=== PATIENT | male | born 1935 | race Caucasian/White ===

== ENCOUNTER 2017-04-04 11:56 | Inpatient (IN) | payer OTHER, MEDICARE ==
[2017-04-04] VITALS (13 sets, daily range): BP systolic 108–153; BP diastolic 60–106; PULSE 72–117; RESP 2–20; TEMP 97.5–98.3; O2SAT 94–98
[~2017-04-04 11:56] MED LIST: ASPI81TA45 PO; BENA20 PO; CALC600T44 PO; CLOP75 PO; DOXA1 PO; ECOT81TA2 PO; FISH1400 PO; HYDR12.56 PO; LUTE20CA PO; METO50CR PO; PANT20 PO; PRAV40 PO; TAB-TAB PO; VITA500C18 PO
[2017-04-04] MEDS ORDERED: METO50TA11 PO (12:16)
[2017-04-04] MEDS ORDERED: PANT20TA2 PO (12:16)
[2017-04-04] MEDS ORDERED: APIX5TAB PO (12:16)
[2017-04-04] MEDS ORDERED: DOXA1TAB34 PO (12:16)
[2017-04-04] MEDS ORDERED: LOVA40TA PO (12:16)
[2017-04-04] MEDS ORDERED: BENA20TA PO (12:16)
[2017-04-04] MEDS ORDERED: AMLO5TAB2 PO (12:16)
[2017-04-04] MEDS ORDERED: HYDR25TA5 PO (12:16)
[2017-04-04] MEDS ORDERED: DILTIAZEM HCL 25 MG/5 ML VIAL IV ONE (12:30)
[2017-04-04 12:34] LABS: AUTOMATED NEUTROPHIL # 5.2 TH/MM3 (1.8-7.7); BASOPHIL % 0.5 % (0.0-2.0); EOSINOPHIL # 0.1 TH/MM3 (0-0.4); EOSINOPHIL % 1.2 % (0.0-4.0); HEMATOCRIT 45.1 % (39.0-51.0); HEMO FLAGS DIFF FINAL; LYMPH % 21.9 % (9.0-44.0); LYMPHOCYTE # 1.6 TH/MM3 (1.0-4.8); MEAN CELL VOLUME 92.8 FL (80.0-100.0); MEAN CORPUSCULAR HEMOGLOBIN 32.2 PG (27.0-34.0); MEAN CORPUSCULAR HGB CONC 34.6 % (32.0-36.0); MONO % 6.8 % (0.0-8.0); NEUT % 69.6 % (16.0-70.0); PLATELET COUNT 194 TH/MM3 (150-450); RED BLOOD COUNT 4.86 MIL/MM3 (4.50-5.90); RED CELL DISTRIBUTION WIDTH 13.2 % (11.6-17.2); WHITE BLOOD COUNT 7.5 TH/MM3 (4.0-11.0)
[2017-04-04 12:44] LABS: APTT (PATIENT) 29.9 SEC (24.3-30.1); INTERNATIONAL NORMALIZED RATIO 1.1 RATIO; PROTHROMBIN TIME - PATIENT 11.7 SEC (9.8-11.6)
--- NOTE | 2017-04-04 12:49 | RADRPT ---
EXAM DATE/TIME: 04/04/2017 12:23 [facility] COMPARISON: CHEST SINGLE AP, September 23, 2015, 20:07. INDICATIONS : Chest pain. MEDICAL HISTORY : Arthritis. Hypercholesterolemia. Gastroesophageal reflux disease. Renal disease.Nephrolithiasis. HTN. Melanoma, ear. Cervicalgia. Vertigo. A-fib. SURGICAL HISTORY : Cholecystectomy. Appendectomy. Lithotripsy. Orthopedic, right knee replacement times three. Orthopedi c, left knee replacement. Left hand finger surgery, times two. Bilateral cataract removal. ENCOUNTER: Initial ACUITY: 1 day PAIN SCORE: 2/10 LOCATION: Bilateral chest FINDINGS: The lungs are clear without infiltrate, nodule, or mass. There is no appreciable pleural effusion fo r technique. Heart and mediastinum are unremarkable. Evidence for prior granulomatous exposure.Ther e are atherosclerotic calcifications of the aorta due to chronic atherosclerotic disease. CONCLUSION: No acute cardiopulmonary disease. Keven Velasquez MD on April 04, 2017 at 12:47 Board Certified Radiologist. This report was verified electronically.
[2017-04-04 12:52] LABS: ANION GAP 10 MEQ/L (5-15); BICARBONATE 26.5 MEQ/L (21.0-32.0); BLOOD UREA NITROGEN 21 MG/DL (7-18); CHLORIDE 103 MEQ/L (98-107); GLOMERULAR FILTRATION RATE 57 ML/MIN (>89); MAGNESIUM 1.9 MG/DL (1.5-2.5); POTASSIUM 3.9 MEQ/L (3.5-5.1); SODIUM (NA) 139 MEQ/L (136-145)
--- NOTE | 2017-04-04 12:54 | RADRPT ---
EXAM DATE/TIME: 04/04/2017 12:40 [facility] COMPARISON: INDICATIONS : Lightheaded.General weakness. RADIATION DOSE: 38.48 CTDIvol (mGy) MEDICAL HISTORY : Cerebrovascular disease. Cardiovascular disease Hypertension.Afib SURGICAL HISTORY : Appendectomy. Cholecystectomy.Prothesis ENCOUNTER: Initial ACUITY: 3 months PAIN SCALE: 0/10 LOCATION: cranial TECHNIQUE: MRI BRAIN W/O CONTRAST, September 24, 2015, 9:02. CT BRAIN W/O CONTRAST, September 23, 2015, 20:26. Mul tiple contiguous axial images were obtained of the head. Using automated exposure control and adjust ment of the mA and/or kV according to patient size, radiation dose was kept as low as reasonably achi evable to obtain optimal diagnostic quality images. DICOM format image data is available electronic ally for review and comparison. FINDINGS: There is no evidence for intracranial hemorrhage, mass effect, mass lesions, or edema. The visualize d bony structures appear intact. Slight degree of brain atrophy is seen. Slight periventricular whit e matter changes are seen nonspecific mostly consistent with chronic small vessel ischemic changes. There are no signs of acute infarction for technique. CONCLUSION: Slight atrophic and small vessel ischemic changes without any evidence for acute hemorrhage or mass effect. Keven Velasquez MD on April 04, 2017 at 12:50 Board Certified Radiologist. This report was verified electronically.
[2017-04-04] MEDS: DILTIAZEM INJ 125 MG in SODIUM CHLORIDE 0.9% INJ 100 ML IV SCH (13:00)
[2017-04-04 13:08] LABS: CREATINE KINASE 57 U/L (39-308)
--- NOTE | 2017-04-04 13:20 | PD ---
HPI Chief Complaint: Cardiac Complaint Time Seen by Provider: 13:13 Travel History International Travel<30 days: No Contact w/Intl Traveler<30days: No Traveled to known affect area: No History of Present Illness HPI 80-year-old male that presents to the ED for evaluation of lightheadedness as well as chest discomfort. Per patient she's had the lightheadedness for a while and he states that for the most per his been able to live with as he usually gets in the morning when she first gets up and then it goes away but since yesterday he is noted that is not going away. Today got more severe. Per patient she got more concerned because he has recently witnessed the loss of the neighbor just last week as well as another one a month ago and she is concerned he may be next. Patient does state that he has chronic pain in his left side of the chest since been diagnosed with A. fib about a year ago. believes the patient is taking too many blood pressure medications. Per patient she's been compliant with all his medications. He does take Eliquis. No falls or injuries. Per patient the lightheadedness is constant and does not change with position. He did see Dr. Ramos versus cardio is about 6 months ago and he is due to see him next month. He has not had any cardiac events as far as he knows. He has not missed a dose of his medications. Denies any other medical issues. No fevers chills or sweats. No thyroid disease. PFSH Past Medical History Hx Anticoagulant Therapy: Yes (eliquis) Arthritis: Yes Asthma: No Atrial Fibrillation: Yes Autoimmune Disease: No Blood Disorders: No Anxiety: No Depression: No Heart Rhythm Problems: No Cancer: Yes (MELANOMA ON EAR--SKIN) Cardiovascular Problems: Yes (afib) High Cholesterol: Yes Chemotherapy: No Chest Pain: Yes Congestive Heart Failure: No COPD: No Cerebrovascular Accident: Yes (tia) Diabetes: No Diminished Hearing: No Endocrine: No Gastrointestinal Disorders: Yes (ACID REFLUX, "SENSITIVE STOMACH") GERD: No Glaucoma: No Genitourinary: No Headaches: No Hepatitis: No Hiatal Hernia: No Hypertension: Yes Immune Disorder: No Kidney Stones: No Musculoskeletal: Yes (ARTHRITIS,NECK PAIN) Neurologic: Yes (JOSE UE NUMBNESS/TINGLING) Psychiatric: No Reproductive: Yes (BPH) Respiratory: No Migraines: No Myocardial Infarction: No Radiation Therapy: No Renal Failure: No Seizures: No Sickle Cell Disease: No Sleep Apnea: No Thyroid Disease: No Ulcer: No Past Surgical History AICD: No Appendectomy: Yes Arteriovenous Shunt: No Cardiac Surgery: No Cholecystectomy: Yes Ear Surgery: No Endocrine Surgery: No Eye Surgery: No Genitourinary Surgery: Yes (KIDNEY STONE LITHOTRIPSY) Gynecologic Surgery: No Joint Replacement: Yes (JOSE KNEES) Neurologic Surgery: No Oral Surgery: No Pacemaker: No Thoracic Surgery: No Other Surgery: Yes (APPENDECTOMY,RIGHT KNEE REPLACEMENT,KIDNEY STONE SURGERY, LEFT FINGER SURGER) Social History Alcohol Use: No Tobacco Use: No Substance Use: No Allergies-Medications (Allergen,Severity, Reaction): Coded Allergies: No Known Allergies (Verified , 09/23/15) Reported Meds & Prescriptions Reported Meds & Active Scripts Active Reported Doxazosin (Doxazosin Mesylate) 4 Mg Tab 4 Mg PO HS Eliquis (Apixaban) 5 Mg Tab 5 Mg PO BID Amlodipine (Amlodipine Besylate) 5 Mg Tab 5 Mg PO DAILY Hydrochlorothiazide 25 Mg Tab 25 Mg PO DAILY Metoprolol Succinate ER 24 HR (Metoprolol Succinate) 50 Mg Tab 75 Mg PO DAILY Pantoprazole (Pantoprazole Sodium) 20 Mg Tab 20 Mg PO DAILY Benazepril (Benazepril HCl) 20 Mg Tab 20 Mg PO BID Lovastatin 40 Mg Tab 40 Mg PO DAILY Review of Systems Except as stated in HPI: all other systems reviewed are Neg Physical Exam Narrative GENERAL: SKIN: Warm and dry. HEAD: Atraumatic. Normocephalic. EYES: Pupils equal and round. No scleral icterus. No injection or drainage. ENT: No nasal bleeding or discharge. Mucous membranes pink and moist. Tongue is midline. No uvula deviation. NECK: Trachea midline. No JVD. CARDIOVASCULAR: Irregular rate and rhythm. No murmurs, S3, S4 RESPIRATORY: No accessory muscle use. Clear to auscultation. Breath sounds equal bilaterally. GASTROINTESTINAL: Abdomen soft, non-tender, nondistended. Hepatic and splenic margins not palpable. MUSCULOSKELETAL: Extremities without clubbing, cyanosis, or edema. No obvious deformities. Full range of motion of the upper and lower extremities bilaterally. 2+ pulses bilaterally. NEUROLOGICAL: Awake and alert. No obvious cranial nerve deficits. Motor grossly within normal limits. Five out of 5 muscle strength in the arms and legs. Normal speech. PSYCHIATRIC: Appropriate mood and affect; insight and judgment normal. Data Data Last Documented VS Vital Signs Date Time Temp Pulse Resp B/P Pulse Ox O2 Delivery O2 Flow Rate FiO2 04/04/17 12:53 98 16 153/106 113 16 141/60 119 115/64 04/04/17 12:35 94 04/04/17 12:22 Room Air 04/04/17 12:00 97.7 Orders Electrocardiogram (04/04/17 ) Complete Blood Count With Diff (04/04/17 12:16) Basic Metabolic Panel (Bmp) (04/04/17 12:16) Ckmb (Isoenzyme) Profile (04/04/17 12:16) Troponin I (04/04/17 12:16) B-Type Natriuretic Peptide (04/04/17 12:16) Prothrombin Time / Inr (Pt) (04/04/17 12:16) Act Partial Throm Time (Ptt) (04/04/17 12:16) Lipase (04/04/17 12:16) Urinalysis - C+S If Indicated (04/04/17 12:16) Magnesium (Mg) (04/04/17 12:16) Thyroid Stimulating Hormone (04/04/17 12:16) Chest, Single Ap (04/04/17 12:16) Ct Brain W/O Iv Contrast(Rout) (04/04/17 12:16) Iv Access Insert/Monitor (04/04/17 12:16) Ecg Monitoring (04/04/17 12:16) Oximetry (04/04/17 12:16) Orthostatic Vital Signs (04/04/17 12:16) Diltiazem Inj (Cardizem Inj) (04/04/17 12:30) Vital Signs (Adult) Q15MX4,Q4H (04/04/17 12:29) Distribution Center Associate / Telemetry BARI.Q8H (04/04/17 12:29) Cardiac Rhythm BARI.Q8H (04/04/17 12:29) Notify Dr: Other (04/04/17 12:29) Diltiazem Inj (Cardizem Inj) (04/04/17 12:30) Admit Order (Ed Use Only) (04/04/17 13:40) Amlodipine (Norvasc) (04/05/17 09:00) Apixaban (Eliquis) (04/04/17 21:00) Lisinopril (Prinivil) (04/04/17 21:00) Doxazosin (Cardura) (04/04/17 21:00) Hydrochlorothiazide (Hydrodiuril) (04/05/17 09:00) Pravastatin (Pravachol) (04/05/17 09:00) Metoprolol Succinate Er (Toprol Xl) (04/05/17 09:00) Labs Laboratory Tests Test 04/04/17 12:20 White Blood Count 7.5 TH/MM3 Red Blood Count 4.86 MIL/MM3 Hemoglobin 15.6 GM/DL Hematocrit 45.1 % Mean Corpuscular Volume 92.8 FL Mean Corpuscular Hemoglobin 32.2 PG Mean Corpuscular Hemoglobin 34.6 % Concent Red Cell Distribution Width 13.2 % Platelet Count 194 TH/MM3 Mean Platelet Volume 8.0 FL Neutrophils (%) (Auto) 69.6 % Lymphocytes (%) (Auto) 21.9 % Monocytes (%) (Auto) 6.8 % Eosinophils (%) (Auto) 1.2 % Basophils (%) (Auto) 0.5 % Neutrophils # (Auto) 5.2 TH/MM3 Lymphocytes # (Auto) 1.6 TH/MM3 Monocytes # (Auto) 0.5 TH/MM3 Eosinophils # (Auto) 0.1 TH/MM3 Basophils # (Auto) 0.0 TH/MM3 CBC Comment DIFF FINAL Differential Comment Prothrombin Time 11.7 SEC Prothromb Time International 1.1 RATIO Ratio Activated Partial 29.9 SEC Thromboplast Time Sodium Level 139 MEQ/L Potassium Level 3.9 MEQ/L Chloride Level 103 MEQ/L Carbon Dioxide Level 26.5 MEQ/L Anion Gap 10 MEQ/L Blood Urea Nitrogen 21 MG/DL Creatinine 1.21 MG/DL Estimat Glomerular Filtration 57 ML/MIN Rate Random Glucose 113 MG/DL Calcium Level 8.6 MG/DL Magnesium Level 1.9 MG/DL Total Creatine Kinase 57 U/L Troponin I LESS THAN 0.02 NG/ML B-Type Natriuretic Peptide 450 PG/ML Lipase 86 U/L Thyroid Stimulating Hormone 2.330 uIU/ML 3rd Gen [facility] Medical Decision Making Medical Screen Exam Complete: Yes Emergency Medical Condition: Yes Medical Record Reviewed: Yes Interpretation(s) CBC & BMP Diagram 04/04/17 12:[address] 04/04/17 1216 Signed Impressions: Service Date/Time: Tuesday, April 04, 2017 12:40 - CONCLUSION: Slight atrophic and small vessel ischemic changes without any evidence for acute hemorrhage or mass effect. Keven Velasquez MD Chest X-Ray 04/04/17 1216 Signed Impressions: Service Date/Time: Tuesday, April 04, 2017 12:23 - CONCLUSION: No acute cardiopulmonary disease. Keven Velasquez MD EKG show atrial fibrillation with RVR with a heart rate of 156. No obvious sign of ischemia otherwise read by me and attending. Troponin and CK-MB negative. TSH within normal limits. Lipase within normal limits. Differential Diagnosis A. fib and RVR versus orthostatic hypotension versus chest pain versus ACS versus atrial fibrillation versus chronic pain versus a typical pain Narrative Course 81-year-old male that presents to the ED for evaluation of lightheadedness and chest pain. Patient was properly examined and was found to have signs and symptoms that appear to be very consistent with A. fib and RVR. Patient states compliance with his medications. He denies any new changes in medications. He does tell me that the lightheadedness is more severe today. Initially his heart rate was in the 150s. Patient was given 1 bolus of Cardizem to be bringing down to 120s 130s but it Back up so he was put on a drip. Patient's labs and imaging were essentially unremarkable other than for A. fib and RVR. Patient did have orthostatic vitals that show 30 point drop which could be related to blood pressure medications. At this time because of patient's A. fib on RVR and need for drip recommendation is for admission for further eval and cardiology input. Patient is in agreement with this plan. Patient is [employer] so [facility] was contacted. Dr Robb agrees to admission. Consult to Trey arellano by me. Diagnosis Primary Impression: Atrial fibrillation with RVR Additional Impression: Orthostatic hypotension Admitting Information Admitting Physician Requests: Admit Evangelist Junior Apr 04, 2017 13:19
[2017-04-04] MEDS ORDERED: LACTULOSE SYRUP 20 GM/30 ML CUP PO PRN (13:45)
[2017-04-04] MEDS ORDERED: NALOXONE HCL 0.4 MG/ML AMP IV PRN (13:45)
[2017-04-04] MEDS ORDERED: MAGNESIUM HYDROXIDE SUSP 30 ML CUP PO PRN (13:45)
[2017-04-04] MEDS ORDERED: ACETAMINOPHEN 325 MG TAB PO PRN (13:45)
[2017-04-04] MEDS ORDERED: ONDANSETRON HCL 4 MG/2 ML VIAL IVP PRN (13:45)
[2017-04-04] MEDS ORDERED: BISACODYL 10 MG SUPP RECTAL PRN (13:45)
[2017-04-04] MEDS ORDERED: SODIUM CHLORIDE 0.9% FLUSH 10 ML FLUSH IV FLUSH PRN (13:45)
[2017-04-04] MEDS ORDERED: SENNOSIDES 8.6 MG TAB PO PRN (13:45)
[2017-04-04] MEDS ORDERED: PILL SPLITTER OTHER PRN (14:00)
--- NOTE | 2017-04-04 14:24 | HHI.HP ---
cc: Jayla Tirado MD; Abiel Xie MD [facility] Non-Staff Admission Diagnosis a fib in RVR, orthostathic hypotension Diagnoses: Chief Complaint: lightheadedness, chest pain Travel History International Travel<30 Days: No Contact w/Intl Traveler <30 Da: No Traveled to Known Affected Are: No History of Present Illness 81-year-old male with history of atrial fibrillation on Eliquis, HTN, TIA, GERD , BPH, presents with a ten-day history of worsening lightheadedness. The patient reports almost every day over the past ten days he has noticed lightheadedness upon awakening, described as feeling foggy in the head with slight blurred vision. He states most of the days the sensation will go away by 11 AM and he just thought this was related to old age. However over the past two days the lightheadedness has persisted, and today he had an episode of chest pain and weakness in the legs. He locates pain to the left anterior chest without radiation, described as sharp, stabbing pains, not associated with any shortness of breath, nausea, or diaphoresis. The pain went away on its own after a few seconds. The symptoms worried him therefore he decided to present to the ER. The patient reports he has been under a lot of stress lately , with 2 close friends passing away, and dealing with family issues. He believes the stress along with low blood pressures are causing his symptoms. He is concerned that he may need to cut back on his BP meds. He has been taking his BP at the grocery store over the past few weeks and it is mostly in the 120s /60s however did have a reading last week in the low 100s. Upon his arrival to the ER, he was found to be in Afib with RVR HR in the 150s. He denies any palpitations or shortness of breath. He reports compliance with his medications. He has been started on Cardizem drip with improvement of HR in the low 100s. He is requesting to see his quarter seamer Dr. Tirado. He also has PCP Dr. Xie and [facility] Yanes. Review of Systems Except as stated in HPI: all other systems reviewed are Neg Past Family Social History Past Medical History atrial fibrillation on Eliquis HTN HLD TIA GERD BPH Nephrolithiasis Past Surgical History Lithotripsy Cervical spine discectomy and fusion Cataract surgery Bilateral total knee arthroplasty Appendectomy Cholecystectomy Left finger surgery Reported Medications Doxazosin (Doxazosin Mesylate) 4 Mg Tab 4 Mg PO HS Eliquis (Apixaban) 5 Mg Tab 5 Mg PO BID Amlodipine (Amlodipine Besylate) 5 Mg Tab 5 Mg PO DAILY Hydrochlorothiazide 25 Mg Tab 25 Mg PO DAILY Metoprolol Succinate ER 24 HR (Metoprolol Succinate) 50 Mg Tab 75 Mg PO DAILY Pantoprazole (Pantoprazole Sodium) 20 Mg Tab 20 Mg PO DAILY Benazepril (Benazepril HCl) 20 Mg Tab 20 Mg PO BID Lovastatin 40 Mg Tab 40 Mg PO DAILY Allergies: Coded Allergies: No Known Allergies (Verified , 09/23/15) Active Ordered Medications Current Medications Medications (Trade) Dose Ordered Sig/Magan Route Start Time Stop Time Status Last Admin (Cardizem Inj/NS Inj) 125 ml @ 0 mls/hr TITRATE IV 04/04/17 12:30 04/04/17 13:00 (Norvasc) 5 mg DAILY PO 04/05/17 09:00 (Eliquis) 5 mg BID PO 04/04/17 21:00 (Prinivil) 20 mg BID PO 04/04/17 21:00 (Cardura) 4 mg HS PO 04/04/17 21:00 (Hydrodiuril) 25 mg DAILY PO 04/05/17 09:00 (Pravachol) 40 mg DAILY PO 04/05/17 09:00 Metoprolol Succinate 75 mg 75 mg DAILY PO 04/05/17 09:00 (NS 1000 ml Inj) 1,000 ml @ 83 mls/hr Q12H3M IV 04/04/17 13:43 UNV (NS Flush) 2 ml UNSCH PRN IV FLUSH 04/04/17 13:45 UNV (NS Flush) 2 ml BID IV FLUSH 04/04/17 21:00 UNV (Tylenol) 650 mg Q4H PRN PO 04/04/17 13:45 UNV (Zofran Inj) 4 mg Q6H PRN IVP 04/04/17 13:45 UNV (Narcan Inj) 0.4 mg UNSCH PRN IV 04/04/17 13:45 UNV (Lyric-Colace) 1 tab BID PO 04/04/17 21:00 UNV (Milk Of Magnesia Liq) 30 ml Q12H PRN PO 04/04/17 13:45 UNV (Senokot) 17.2 mg Q12H PRN PO 04/04/17 13:45 UNV (Dulcolax Supp) 10 mg DAILY PRN RECTAL 04/04/17 13:45 UNV (Lactulose Liq) 30 ml DAILY PRN PO 04/04/17 13:45 UNV (Pill Splitter) 1 ea UNSCH PRN OTHER 04/04/17 14:00 Family History Mother with lung cancer, Father with Alzheimer's, age 89 Son with renal cell carcinoma and metastasis, Social History Denies any alcohol, tobacco, or illicit drug use Physical Exam Vital Signs Vital Signs Date Time Temp Pulse Resp B/P Pulse Ox O2 Delivery O2 Flow Rate FiO2 04/04/17 12:53 98 16 153/106 113 16 141/60 119 115/64 04/04/17 12:35 117 16 122/63 94 04/04/17 12:22 Room Air 04/04/17 12:00 97.7 78 16 134/77 97 Physical Exam GENERAL: Well-nourished, well-developed pleasant elderly male patient in [facility]. SKIN: Warm and dry. No rash. HEAD: Normocephalic. Atraumatic. EYES: Pupils equal and round. No scleral icterus. No injection or drainage. ENT: No nasal bleeding or discharge. Mucous membranes pink and moist. NECK: Supple. Trachea midline. CARDIOVASCULAR: Irregularly irregular rate and rhythm. S1, S2 noted. No murmur appreciated. RESPIRATORY: No accessory muscle use. Clear to auscultation. Breath sounds equal bilaterally. GASTROINTESTINAL: Abdomen soft, non-tender, nondistended. Normoactive bowel sounds x4. MUSCULOSKELETAL: No obvious deformities. Extremities without clubbing, cyanosis , or edema. NEUROLOGICAL: Awake and alert. No obvious cranial nerve deficits. Motor grossly within normal limits. Normal speech. PSYCHIATRIC: Appropriate mood and affect; insight and judgment normal. Laboratory Laboratory Tests Test 04/04/17 12:20 White Blood Count 7.5 Red Blood Count 4.86 Hemoglobin 15.6 Hematocrit 45.1 Mean Corpuscular Volume 92.8 Mean Corpuscular Hemoglobin 32.2 Mean Corpuscular Hemoglobin 34.6 Concent Red Cell Distribution Width 13.2 Platelet Count 194 Mean Platelet Volume 8.0 Neutrophils (%) (Auto) 69.6 Lymphocytes (%) (Auto) 21.9 Monocytes (%) (Auto) 6.8 Eosinophils (%) (Auto) 1.2 Basophils (%) (Auto) 0.5 Neutrophils # (Auto) 5.2 Lymphocytes # (Auto) 1.6 Monocytes # (Auto) 0.5 Eosinophils # (Auto) 0.1 Basophils # (Auto) 0.0 CBC Comment DIFF FINAL Differential Comment Prothrombin Time 11.7 Prothromb Time International 1.1 Ratio Activated Partial 29.9 Thromboplast Time Sodium Level 139 Potassium Level 3.9 Chloride Level 103 Carbon Dioxide Level 26.5 Anion Gap 10 Blood Urea Nitrogen 21 Creatinine 1.21 Estimat Glomerular Filtration 57 Rate Random Glucose 113 Calcium Level 8.6 Magnesium Level 1.9 Total Creatine Kinase 57 Troponin I LESS THAN 0.02 B-Type Natriuretic Peptide 450 Lipase 86 Thyroid Stimulating Hormone 2.330 3rd Gen Result Diagram: 04/04/17 1220 04/04/17 1220 Imaging Last Impressions Head CT 04/04/17 1216 Signed Impressions: Service Date/Time: Tuesday, April 04, 2017 12:40 - CONCLUSION: Slight atrophic and small vessel ischemic changes without any evidence for acute hemorrhage or mass effect. Keven Velasquez MD Chest X-Ray 04/04/17 1216 Signed Impressions: Service Date/Time: Tuesday, April 04, 2017 12:23 - CONCLUSION: No acute cardiopulmonary disease. Keven Velasquez MD Assessment and Plan Problem List: (1) Atrial fibrillation with RVR ICD Code: I48.91 Status: Acute (2) Orthostatic hypotension ICD Code: I95.1 Status: Acute (3) Atypical chest pain ICD Code: R07.89 Status: Acute Assessment and Plan 81-year-old male with history of atrial fibrillation on Eliquis, HTN, TIA, GERD , BPH, presents with a ten-day history of worsening lightheadedness. Atrial fibrillation with RVR: EKG upon arrival showed A. fib with RVR, HR 156. S /p IV Cardizem bolus, initially heart rate improved however went back up to 120s -130s, therefore started on IV Cardizem drip. -Continue IV Cardizem drip -Continue patient's Eliquis, statin, and metoprolol -monitor on telemetry -consult patient's quarter seamer Dr. Tirado Lightheadedness: suspect multifactorial secondary to orthostatic hypotension in combination with afib RVR as above -records reviewed, hx of Echo showed mild LVH with normal systolic function EF 55-60% -orthostatic BP positive, continue to monitor -continued patient's benazepril 20mg bid, HCTZ 25mg qd, and metoprolol succinate 75mg daily; however hold norvasc for now -monitor BP, adjust antihypertensives as needed. 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 Initial troponin negative and EKG without acute ischemic changes -continue to rule out ACS with serial cardiac enzymes and EKGs -monitor on telemetry -check lipid panel in am -cardiology consulted as above All other medical conditions stable, continue home medications as appropriate. DVT Prophylaxis: on quis The exam, history, and the medical decision-making described in the above note were completed with the assistance of the mid-level provider. I reviewed and agree with the findings presented. I attest that I had a [id number] encounter with the patient on the same day, and personally performed and documented my assessment and findings in the medical record. Discussed with patient and his in Emergency room, patient examined in ER. Code Status Full Code Discussed Condition With Patient, Patient's at bedside, Dr. Cezar Blanca PA-C Physician Certification 2 Midnight Certification Type: Admission for Inpatient Services Order for Inpatient Services The services are ordered in accordance with Medicare regulations or non- Medicare payer requirements, as applicable. In the case of services not specified as inpatient-only, they are appropriately provided as inpatient services in accordance with the 2-midnight benchmark. Estimated LOS (days): 3 days is the estimated time the patient will need to remain in the hospital, assuming treatment plan goals are met and no additional complications. Post-Hospital Plan: Home Geri Padgett PA-C Apr 04, 2017 14:24 Atul Schmidt MD Apr 04, 2017 15:59
[2017-04-04] MEDS: SODIUM CHLOR 0.9% 1000 ML INJ 1,000 ML IV SCH (15:07)
[2017-04-04] MEDS ORDERED: METOPROLOL SUCCINATE 25 MG EXTENDED RELEASE TAB PO ONE (16:00)
[2017-04-04 16:01] LABS: BLOOD, URINE NEG (NEG); COMMENT (UR) CULT NOT INDICATED; CULTURE IF INDICATED CULT NOT INDICATED; GLUCOSE,URINE NEG (NEG); KETONE, URINE NEG (NEG); MUCUS URINE FEW /lpf (OCC); NITRITE,URINE NEG (NEG); PH, URINE 5.5 (5.0-8.5); SQUAMOUS EPITHELIAL CELL URINE <1 /hpf (0-5); URINE COLOR YELLOW (YELLW/STRAW)
--- NOTE | 2017-04-04 16:04 | MB ---
cc: WALT BRAND MD DATE OF CONSULTATION 04/04/2017 REASON FOR CONSULTATION Atrial fibrillation with rapid ventricular vein. HISTORY OF PRESENT ILLNESS Mr. is an 81-year-old man who does have a history of atrial fibrillation diagnosed earlier this year after having a TIA. The patient reports that over the last 10 days he has had some lightheadedness that started out intermittently. The last day or so it has been rather constant and this precipitated his emergency room visit. PAST MEDICAL HISTORY Significant for: 1. Atrial fibrillation. 2. Hypertension. 3. Hyperlipidemia. 4. Transient ischemic attack. 5. Gastroesophageal reflux disease. 6. Benign prostatic hypertrophy. 7. Nephrolithiasis. OUTPATIENT MEDICATIONS Included: 1. Doxazosin. 2. Eliquis. 3. Amlodipine. 4. Hydrochlorothiazide. 5. Metoprolol ER 75 mg a day. 6. Pantoprazole. 7. Benazepril. 8. Lovastatin. ALLERGIES NO KNOWN DRUG ALLERGIES. FAMILY HISTORY Is negative for coronary artery disease. SOCIAL HISTORY The patient denies any alcohol and tobacco use. He is . REVIEW OF SYSTEMS Except as mentioned in the HPI all 12 systems are negative. PHYSICAL EXAMINATION VITAL SIGNS: Currently are 99, 20, 108/65. GENERAL: He is a well-appearing elderly man who is in no apparent distress. NECK: His neck is free from JVD. LUNGS: The lungs are bilaterally clear to auscultation. CARDIOVASCULAR: He has a normal S1 and S2. The rhythm is irregularly irregular. No rubs or gallops are appreciated. ABDOMEN: Soft. EXTREMITIES: Are free from edema. EKG shows atrial fibrillation with rapid ventricular rate. IMPRESSION Atrial fibrillation with rapid ventricular rate - the patient has had some fair rate control on the metoprolol. He is currently on IV Cardizem as well. I am going to increase his Toprol ER and ideally we will wean his Cardizem. He will remain on the Eliquis. Dizziness - this is likely a combination of the atrial fibrillation with RVR and the orthostasis. His blood pressure dropped from 153 to 115 standing. He will be hydrated and I will discontinue his hydrochlorothiazide. Walt Brand M.D. ANAI/KK /3:21 PM /3:55 PM
--- NOTE | 2017-04-04 18:53 | EKG ---
Date Performed: 04/04/2017 Time Performed: 12:13:03 PTAGE: 81 years EKG: ATRIAL FIBRILLATION WITH RAPID VENTRICULAR RESPONSE NONSPECIFIC ST & T-WAVE ABNORMALITY ABN ORMAL RHYTHM ECG PREVIOUS TRACING : 09/23/2015 20.10 Compared to previous tracing, atrial fibrillation with a ra pid ventricular response has replaced normal Sinus rhythm . DOCTOR: Eric Thomas Interpretating Date/Time 04/04/2017 18:52:06
[2017-04-04 19:23] LABS: CREATINE KINASE 49 U/L (39-308)
[2017-04-04] MEDS: LISINOPRIL 20 MG TAB PO SCH (21:58)
[2017-04-04] MEDS: DOXAZOSIN MESYLATE 4 MG TAB PO SCH (21:59)
[2017-04-04] MEDS: APIXABAN 5 MG TABLET PO SCH (21:59)
[2017-04-04] MEDS: DOCUSATE SODIUM 50 MG/SENNA 8.6 MG TAB PO SCH (22:02)
[2017-04-04] MEDS: SODIUM CHLORIDE 0.9% FLUSH 10 ML FLUSH IV FLUSH SCH (22:03)
[2017-04-05] VITALS (23 sets, daily range): BP systolic 99–143; BP diastolic 63–82; PULSE 71–122; RESP 18–20; TEMP 97.3–98.4; O2SAT 95–99
[2017-04-05 01:19] LABS: CREATINE KINASE 47 U/L (39-308)
[2017-04-05] MEDS: SODIUM CHLOR 0.9% 1000 ML INJ 1,000 ML IV SCH ×2 (01:46→13:49)
[2017-04-05 05:11] LABS: AUTOMATED NEUTROPHIL # 4.2 TH/MM3 (1.8-7.7); BASOPHIL % 0.6 % (0.0-2.0); EOSINOPHIL # 0.2 TH/MM3 (0-0.4); EOSINOPHIL % 2.2 % (0.0-4.0); HEMATOCRIT 39.9 % (39.0-51.0); HEMO FLAGS DIFF FINAL; LYMPHOCYTE # 2.1 TH/MM3 (1.0-4.8); MEAN CORPUSCULAR HEMOGLOBIN 32.2 PG (27.0-34.0); MONO % 8.1 % (0.0-8.0); NEUT % 59.1 % (16.0-70.0); PLATELET COUNT 166 TH/MM3 (150-450); RED BLOOD COUNT 4.34 MIL/MM3 (4.50-5.90); RED CELL DISTRIBUTION WIDTH 13.1 % (11.6-17.2); WHITE BLOOD COUNT 7.1 TH/MM3 (4.0-11.0)
[2017-04-05 05:27] LABS: BICARBONATE 27.1 MEQ/L (21.0-32.0); POTASSIUM 3.5 MEQ/L (3.5-5.1)
[2017-04-05 05:31] LABS: HDL CHOLESTEROL 34.7 MG/DL (40.0-60.0)
[2017-04-05] MEDS ORDERED: METOPROLOL SUCCINATE 50 MG EXTENDED RELEASE TAB PO SCH ×2 (09:00)
[2017-04-05] MEDS ORDERED: HYDROCHLOROTHIAZIDE 25 MG TAB PO SCH (09:00)
[2017-04-05] MEDS ORDERED: amLODIPine BESYLATE 5 MG TAB PO SCH (09:00)
[2017-04-05] MEDS: APIXABAN 5 MG TABLET PO SCH ×2 (09:11→21:43)
[2017-04-05] MEDS: LISINOPRIL 20 MG TAB PO SCH (09:11)
[2017-04-05] MEDS: DOCUSATE SODIUM 50 MG/SENNA 8.6 MG TAB PO SCH ×2 (09:11→21:43)
[2017-04-05] MEDS: SODIUM CHLORIDE 0.9% FLUSH 10 ML FLUSH IV FLUSH SCH ×2 (09:12→21:44)
[2017-04-05] MEDS: PRAVASTATIN SOD 40 MG TAB PO SCH (09:12)
--- NOTE | 2017-04-05 12:40 | PD.CARD.PN ---
Subjective Subjective Remarks Pt without complaints Objective Medications Current Medications Medications (Trade) Dose Ordered Sig/Magan Route Start Time Stop Time Status Last Admin (Cardizem Inj/NS Inj) 125 ml @ 0 mls/hr TITRATE IV 04/04/17 12:30 04/04/17 13:00 (Norvasc) 5 mg DAILY PO 04/05/17 09:00 Hold (Eliquis) 5 mg BID PO 04/04/17 21:00 04/05/17 09:11 (Prinivil) 20 mg BID PO 04/04/17 21:00 04/05/17 09:11 (Cardura) 4 mg HS PO 04/04/17 21:00 04/04/17 21:59 Pravastatin Sodium 40 mg 40 mg DAILY PO 04/05/17 09:00 04/05/17 09:12 (NS 1000 ml Inj) 1,000 ml @ 83 mls/hr Q12H3M IV 04/04/17 13:43 04/05/17 01:46 (NS Flush) 2 ml UNSCH PRN IV FLUSH 04/04/17 13:45 (NS Flush) 2 ml BID IV FLUSH 04/04/17 21:00 04/05/17 09:12 (Tylenol) 650 mg Q4H PRN PO 04/04/17 13:45 (Zofran Inj) 4 mg Q6H PRN IVP 04/04/17 13:45 (Narcan Inj) 0.4 mg UNSCH PRN IV 04/04/17 13:45 (Lyric-Colace) 1 tab BID PO 04/04/17 21:00 04/05/17 09:11 (Milk Of Magnesia Liq) 30 ml Q12H PRN PO 04/04/17 13:45 (Senokot) 17.2 mg Q12H PRN PO 04/04/17 13:45 (Dulcolax Supp) 10 mg DAILY PRN RECTAL 04/04/17 13:45 (Lactulose Liq) 30 ml DAILY PRN PO 04/04/17 13:45 (Pill Splitter) 1 ea UNSCH PRN OTHER 04/04/17 14:00 (Toprol Xl) 100 mg DAILY PO 04/05/17 09:00 04/05/17 09:11 Vital Signs / I&O Vital Signs Date Time Temp Pulse Resp B/P Pulse Ox O2 Delivery O2 Flow Rate FiO2 04/05/17 12:21 74 04/05/17 11:39 89 04/05/17 11:39 98.0 71 18 106/72 96 04/05/17 10:01 76 04/05/17 09:40 98 04/05/17 08:30 98.3 82 18 123/73 98 04/05/17 08:30 85 04/05/17 06:00 100 04/05/17 05:00 81 04/05/17 04:00 81 04/05/17 03:00 97.8 82 18 99/63 95 04/05/17 03:00 91 04/05/17 02:00 84 04/05/17 01:00 122 04/05/17 00:00 100 04/04/17 23:00 86 04/04/17 23:00 98.3 94 16 116/75 95 04/04/17 22:00 82 04/04/17 21:00 72 04/04/17 20:00 74 04/04/17 19:00 97.5 73 18 113/67 98 04/04/17 19:00 76 04/04/17 18:00 89 04/04/17 17:00 84 04/04/17 16:43 90 04/04/17 16:30 92 04/04/17 16:30 97.8 84 2 108/65 98 04/04/17 14:28 103 20 108/65 94 04/04/17 12:53 98 16 153/106 113 16 141/60 119 115/64 I/O 04/04/17 04/04/17 04/04/17 04/05/17 04/05/17 04/05/17 06:59 14:59 22:59 06:59 14:59 22:59 Intake Total 1266 ml Output Total 1400 ml Balance -134 ml Intake Oral 480 ml IV Total 786 ml Output Urine Total 1400 ml Physical Exam GENERAL: Well developed, well nourished. No acute distress. HEENT: Jugular venous pressure is normal. CHEST: Lungs clear to auscultation bilaterally. Unlabored respiratory effort. CARDIAC: iregular rate and rhythm without S3, S4, or murmur. ABDOMEN: Soft, nontender, no hepatosplenomegaly. Bowel sounds present. EXTREMITIES: No clubbing, cyanosis, or edema. Laboratory Laboratory Tests Test 04/04/17 04/04/17 04/05/17 04/05/17 15:00 18:34 00:28 03:37 Urine Color YELLOW Urine Turbidity CLEAR Urine pH 5.5 Urine Specific [place] 1.018 Urine Protein NEG mg/dL Urine Glucose (UA) NEG mg/dL Urine Ketones NEG mg/dL Urine Occult Blood NEG Urine Nitrite NEG Urine Bilirubin NEG Urine Urobilinogen LESS THAN 2.0 MG/DL Urine Leukocyte Esterase NEG Urine RBC 1 /hpf Urine WBC 1 /hpf Urine Squamous Epithelial <1 /hpf Cells Urine Mucus FEW /lpf Microscopic Urinalysis Comment CULT NOT INDICATED Total Creatine Kinase 49 U/L 47 U/L Troponin I LESS THAN 0.02 LESS THAN 0.02 NG/ML NG/ML White Blood Count 7.1 TH/MM3 Red Blood Count 4.34 MIL/MM3 Hemoglobin 14.0 GM/DL Hematocrit 39.9 % Mean Corpuscular Volume 92.0 FL Mean Corpuscular Hemoglobin 32.2 PG Mean Corpuscular Hemoglobin 35.0 % Concent Red Cell Distribution Width 13.1 % Platelet Count 166 TH/MM3 Mean Platelet Volume 8.8 FL Neutrophils (%) (Auto) 59.1 % Lymphocytes (%) (Auto) 30.0 % Monocytes (%) (Auto) 8.1 % Eosinophils (%) (Auto) 2.2 % Basophils (%) (Auto) 0.6 % Neutrophils # (Auto) 4.2 TH/MM3 Lymphocytes # (Auto) 2.1 TH/MM3 Monocytes # (Auto) 0.6 TH/MM3 Eosinophils # (Auto) 0.2 TH/MM3 Basophils # (Auto) 0.0 TH/MM3 CBC Comment DIFF FINAL Differential Comment Sodium Level 139 MEQ/L Potassium Level 3.5 MEQ/L Chloride Level 105 MEQ/L Carbon Dioxide Level 27.1 MEQ/L Anion Gap 7 MEQ/L Blood Urea Nitrogen 19 MG/DL Creatinine 1.08 MG/DL Estimat Glomerular Filtration 65 ML/MIN Rate Random Glucose 97 MG/DL Calcium Level 8.3 MG/DL Triglycerides Level 97 MG/DL Cholesterol Level 100 MG/DL LDL Cholesterol 46 MG/DL HDL Cholesterol 34.7 MG/DL Cholesterol/HDL Ratio 2.88 RATIO Assessment and Plan Assessment and Plan AF - fair rate control, still on dilt gtt HTN- BP low - cut lisinopril Jonnathan,Ashley A MD Apr 05, 2017 12:40
--- NOTE | 2017-04-05 15:11 | HHI.PR ---
Subjective Remarks This is a pleasant 81 y/o male with Atrial Fibrillation on Eliquis, he has Hypertension, TIA, GERD, BPH, who came to ER with worsening lightheadedness, had an episode of Chest pain and weakness in the legs , He located pain to the left anterior chest without radiation, described as sharp, stabbing pains, not associated with any shortness of breath, nausea, or diaphoresis. found with Atrial fibrillation with RVR Heart rate in 150s, started on Cardizem drip in ER, seen by wardrobe specialist Increased Metoprolol dose, discontinued HCTZ due to Orthostasis. as per patient he dislodged his IV site and had a hemorrhage from his IV area, he is upset and states needs the best Nurse in the hospital to take his IV line and prefer not to be placed on his hands on his Forearms only and the Right forearm. Objective Vital Signs Date Time Temp Pulse Resp B/P Pulse Ox O2 Delivery O2 Flow Rate FiO2 04/05/17 14:05 91 04/05/17 13:24 85 04/05/17 12:21 74 04/05/17 11:39 89 04/05/17 11:39 98.0 71 18 106/72 96 04/05/17 10:01 76 04/05/17 09:40 98 04/05/17 08:30 98.3 82 18 123/73 98 04/05/17 08:30 85 04/05/17 06:00 100 04/05/17 05:00 81 04/05/17 04:00 81 04/05/17 03:00 97.8 82 18 99/63 95 04/05/17 03:00 91 04/05/17 02:00 84 04/05/17 01:00 122 04/05/17 00:00 100 04/04/17 23:00 86 04/04/17 23:00 98.3 94 16 116/75 95 04/04/17 22:00 82 04/04/17 21:00 72 04/04/17 20:00 74 04/04/17 19:00 97.5 73 18 113/67 98 04/04/17 19:00 76 04/04/17 18:00 89 04/04/17 17:00 84 04/04/17 16:43 90 04/04/17 16:30 92 04/04/17 16:30 97.8 84 2 108/65 98 I/O 04/04/17 04/04/17 04/04/17 04/05/17 04/05/17 04/05/17 07:00 15:00 23:00 07:00 15:00 23:00 Intake Total 1266 ml Output Total 1400 ml Balance -134 ml Intake Oral 480 ml IV Total 786 ml Output Urine Total 1400 ml Result Diagram: 04/05/17 0337 04/05/17 0337 Imaging Last Impressions Head CT 04/04/176 Signed Impressions: Service Date/Time: Tuesday, April 04, 2017 12:40 - CONCLUSION: Slight atrophic and small vessel ischemic changes without any evidence for acute hemorrhage or mass effect. Keven Velasquez MD Chest X-Ray 04/04/171215 Signed Impressions: Service Date/Time: Tuesday, April 04, 2017 12:23 - CONCLUSION: No acute cardiopulmonary disease. Keven Velasquez MD Procedures None Other Results Laboratory Tests Test 04/04/17 04/04/17 04/05/17 04/05/17 12:20 15:00 00:28 03:37 Prothrombin Time 11.7 SEC Prothromb Time International 1.1 RATIO Ratio Activated Partial 29.9 SEC Thromboplast Time Magnesium Level 1.9 MG/DL B-Type Natriuretic Peptide 450 PG/ML Lipase 86 U/L Thyroid Stimulating Hormone 2.330 uIU/ML 3rd Gen Urine Color YELLOW Urine Turbidity CLEAR Urine pH 5.5 Urine Specific [place] 1.018 Urine Protein NEG mg/dL Urine Glucose (UA) NEG mg/dL Urine Ketones NEG mg/dL Urine Occult Blood NEG Urine Nitrite NEG Urine Bilirubin NEG Urine Urobilinogen LESS THAN 2.0 MG/DL Urine Leukocyte Esterase NEG Urine RBC 1 /hpf Urine WBC 1 /hpf Urine Squamous Epithelial <1 /hpf Cells Urine Mucus FEW /lpf Microscopic Urinalysis Comment CULT NOT INDICATED Total Creatine Kinase 47 U/L Troponin I LESS THAN 0.02 NG/ML White Blood Count 7.1 TH/MM3 Red Blood Count 4.34 MIL/MM3 Hemoglobin 14.0 GM/DL Hematocrit 39.9 % Mean Corpuscular Volume 92.0 FL Mean Corpuscular Hemoglobin 32.2 PG Mean Corpuscular Hemoglobin 35.0 % Concent Red Cell Distribution Width 13.1 % Platelet Count 166 TH/MM3 Mean Platelet Volume 8.8 FL Neutrophils (%) (Auto) 59.1 % Lymphocytes (%) (Auto) 30.0 % Monocytes (%) (Auto) 8.1 % Eosinophils (%) (Auto) 2.2 % Basophils (%) (Auto) 0.6 % Neutrophils # (Auto) 4.2 TH/MM3 Lymphocytes # (Auto) 2.1 TH/MM3 Monocytes # (Auto) 0.6 TH/MM3 Eosinophils # (Auto) 0.2 TH/MM3 Basophils # (Auto) 0.0 TH/MM3 CBC Comment DIFF FINAL Differential Comment Sodium Level 139 MEQ/L Potassium Level 3.5 MEQ/L Chloride Level 105 MEQ/L Carbon Dioxide Level 27.1 MEQ/L Anion Gap 7 MEQ/L Blood Urea Nitrogen 19 MG/DL Creatinine 1.08 MG/DL Estimat Glomerular Filtration 65 ML/MIN Rate Random Glucose 97 MG/DL Calcium Level 8.3 MG/DL Triglycerides Level 97 MG/DL Cholesterol Level 100 MG/DL LDL Cholesterol 46 MG/DL HDL Cholesterol 34.7 MG/DL Cholesterol/HDL Ratio 2.88 RATIO Objective Remarks GENERAL: Well-nourished, well-developed pleasant elderly male patient in [facility]. SKIN: Warm and dry. No rash. HEAD: Normocephalic. Atraumatic. EYES: Pupils equal and round. No scleral icterus. No injection or drainage. ENT: No nasal bleeding or discharge. Mucous membranes pink and moist. NECK: Supple. Trachea midline. CARDIOVASCULAR: Irregularly irregular rate and rhythm. S1, S2 noted. No murmur appreciated. RESPIRATORY: No accessory muscle use. Clear to auscultation. Breath sounds equal bilaterally. GASTROINTESTINAL: Abdomen soft, non-tender, nondistended. Normoactive bowel sounds x4. MUSCULOSKELETAL: No obvious deformities. Extremities without clubbing, cyanosis , or edema. NEUROLOGICAL: Awake and alert. No obvious cranial nerve deficits. Motor grossly within normal limits. Normal speech. PSYCHIATRIC: Appropriate mood and affect; insight and judgment normal. Medications and IVs Current Medications Medications (Trade) Dose Ordered Sig/Magan Route Start Time Stop Time Status Last Admin (Cardizem Inj/NS Inj) 125 ml @ 0 mls/hr TITRATE IV 04/04/17 12:30 04/04/17 13:00 (Norvasc) 5 mg DAILY PO 04/05/17 09:00 Hold (Eliquis) 5 mg BID PO 04/04/17 21:00 04/05/17 09:11 (Cardura) 4 mg HS PO 04/04/17 21:00 04/04/17 21:59 Pravastatin Sodium 40 mg 40 mg DAILY PO 04/05/17 09:00 04/05/17 09:12 (NS 1000 ml Inj) 1,000 ml @ 83 mls/hr Q12H3M IV 04/04/17 13:43 04/05/17 13:49 (NS Flush) 2 ml UNSCH PRN IV FLUSH 04/04/17 13:45 (NS Flush) 2 ml BID IV FLUSH 04/04/17 21:00 04/05/17 09:12 (Tylenol) 650 mg Q4H PRN PO 04/04/17 13:45 (Zofran Inj) 4 mg Q6H PRN IVP 04/04/17 13:45 (Narcan Inj) 0.4 mg UNSCH PRN IV 04/04/17 13:45 (Lyric-Colace) 1 tab BID PO 04/04/17 21:00 04/05/17 09:11 (Milk Of Magnesia Liq) 30 ml Q12H PRN PO 04/04/17 13:45 (Senokot) 17.2 mg Q12H PRN PO 04/04/17 13:45 (Dulcolax Supp) 10 mg DAILY PRN RECTAL 04/04/17 13:45 (Lactulose Liq) 30 ml DAILY PRN PO 04/04/17 13:45 (Pill Splitter) 1 ea UNSCH PRN OTHER 04/04/17 14:00 (Toprol Xl) 100 mg DAILY PO 04/05/17 09:00 04/05/17 09:11 (Prinivil) 10 mg DAILY PO 04/06/17 09:00 A/P Assessment and Plan 81-year-old male with history of atrial fibrillation on Eliquis, HTN, TIA, GERD , BPH, presents with a ten-day history of worsening lightheadedness. Atrial fibrillation with RVR: EKG upon arrival showed A. fib with RVR, HR 156. S /p IV Cardizem bolus, initially heart rate improved however went back up to 120s -130s, therefore started on IV Cardizem drip. -Continue IV Cardizem drip -Continue patient's Eliquis, statin, and metoprolol -monitor on telemetry -wardrobe specialist following Doctor Jonnathan and continue on Cardizem drip, continue with Atrial Fibrillation with RVR. Lightheadedness: suspect multifactorial secondary to orthostatic hypotension in combination with afib RVR as above -records reviewed, hx of Echo showed mild LVH with normal systolic function EF 55-60% -orthostatic BP positive, adjusted medicines by wardrobe specialist Amlodipine discontinued, HCTZ discontinued and increased to 100 mg of Metoprolol. Atypical Chest Pain: lasted few seconds, suspect secondary to afib, no hx of CAD. Initial troponin negative and EKG without acute ischemic changes -Ruled out ACS. -monitor on telemetry -check lipid panel in am Potassium level 3.5 replaced and following. All other medical conditions stable, continue home medications as appropriate. DVT Prophylaxis: on Eliquis Code Status Full Code Discussed Condition With Patient and nurse Miss Jocelyne Cerda, all questions answered to the best of my abilities. Discharge Planning Expected in one to two days once cleared by wardrobe specialist. Atul Schmidt MD Apr 05, 2017 15:11 Atul Schmidt MD Apr 05, 2017 15:11 The exam, history, and the medical decision-making described in the above note were completed with the assistance of the mid-level provider. I reviewed and agree with the findings presented. I attest that I had a [id number] encounter with the patient on the same day, and personally performed and documented my assessment and findings in the medical record. Discussed with patient and his in Emergency room, patient examined in ER. Code Status Full Code Discussed Condition With Atul Schmidt MD Apr 05, 2017 15:11
[2017-04-05] MEDS ORDERED: POTASSIUM CHLORIDE 20 MEQ CONTROLLED RELEASE TAB PO ONE (18:00)
[2017-04-05] MEDS: DOXAZOSIN MESYLATE 4 MG TAB PO SCH (21:43)
[2017-04-06] VITALS (28 sets, daily range): BP systolic 112–143; BP diastolic 64–89; PULSE 71–124; RESP 18–20; TEMP 97.3–98.9; O2SAT 96–99
--- NOTE | 2017-04-06 07:50 | PD.CARD.PN ---
Subjective Subjective Remarks I feel great Objective Medications Current Medications Medications (Trade) Dose Ordered Sig/Magan Route Start Time Stop Time Status Last Admin (Cardizem Inj/NS Inj) 125 ml @ 0 mls/hr TITRATE IV 04/04/17 12:30 04/04/17 13:00 (Norvasc) 5 mg DAILY PO 04/05/17 09:00 Hold (Eliquis) 5 mg BID PO 04/04/17 21:00 04/05/17 21:43 (Cardura) 4 mg HS PO 04/04/17 21:00 04/05/17 21:43 (Pravachol) 40 mg DAILY PO 04/05/17 09:00 04/05/17 09:12 (NS Flush) 2 ml UNSCH PRN IV FLUSH 04/04/17 13:45 (NS Flush) 2 ml BID IV FLUSH 04/04/17 21:00 04/05/17 21:44 (Tylenol) 650 mg Q4H PRN PO 04/04/17 13:45 (Zofran Inj) 4 mg Q6H PRN IVP 04/04/17 13:45 (Narcan Inj) 0.4 mg UNSCH PRN IV 04/04/17 13:45 (Lyric-Colace) 1 tab BID PO 04/04/17 21:00 04/05/17 21:43 (Milk Of Magnesia Liq) 30 ml Q12H PRN PO 04/04/17 13:45 (Senokot) 17.2 mg Q12H PRN PO 04/04/17 13:45 (Dulcolax Supp) 10 mg DAILY PRN RECTAL 04/04/17 13:45 (Lactulose Liq) 30 ml DAILY PRN PO 04/04/17 13:45 (Pill Splitter) 1 ea UNSCH PRN OTHER 04/04/17 14:00 (Toprol Xl) 100 mg DAILY PO 04/05/17 09:00 04/05/17 09:11 (Prinivil) 10 mg DAILY PO 04/06/17 09:00 Vital Signs / I&O Vital Signs Date Time Temp Pulse Resp B/P Pulse Ox O2 Delivery O2 Flow Rate FiO2 04/06/17 06:00 116 04/06/17 05:00 84 04/06/17 04:00 100 04/06/17 03:00 98.9 85 18 128/68 96 04/06/17 03:00 80 04/06/17 02:00 86 04/06/17 01:00 104 04/06/17 00:00 92 04/05/17 23:00 88 04/05/17 23:00 98.2 99 18 125/75 96 04/05/17 22:00 108 04/05/17 21:00 100 04/05/17 20:00 108 04/05/17 19:00 97.9 109 20 129/82 96 04/05/17 19:00 110 04/05/17 18:18 97 04/05/17 17:13 88 04/05/17 16:36 78 04/05/17 15:20 86 04/05/17 15:20 98.4 85 18 125/79 96 04/05/17 14:05 91 04/05/17 13:24 85 04/05/17 12:21 74 04/05/17 11:39 89 04/05/17 11:39 98.0 71 18 106/72 96 04/05/17 10:01 76 04/05/17 09:40 98 04/05/17 08:30 98.3 82 18 123/73 98 04/05/17 08:30 85 I/O 04/05/17 04/05/17 04/05/17 04/06/17 04/06/17 04/06/17 07:00 15:00 23:00 07:00 15:00 23:00 Intake Total 1266 ml 1410 ml 361 ml Output Total 1400 ml 650 ml 1350 ml Balance -134 ml 760 ml -989 ml Intake Oral 480 ml 600 ml 240 ml IV Total 786 ml 810 ml 121 ml Output Urine Total 1400 ml 650 ml 1350 ml # Bowel Movements 0 Physical Exam GENERAL: Well developed, well nourished. No acute distress. HEENT: Jugular venous pressure is normal. CHEST: Lungs clear to auscultation bilaterally. Unlabored respiratory effort. CARDIAC: iregular rate and rhythm without S3, S4, or murmur. ABDOMEN: Soft, nontender, no hepatosplenomegaly. Bowel sounds present. EXTREMITIES: No clubbing, cyanosis, or edema. Laboratory Laboratory Tests Test 04/06/17 05:56 Potassium Level 4.0 MEQ/L Magnesium Level 2.0 MG/DL Assessment and Plan Assessment and Plan AF - fair rate control, dilt gtt increased => increase metoprolol, (somewhat limited secondary to lower BP) HTN- BP better, stop lisinopril (and norvasc that was on hold) for room with metoprolol orthostasis- check in am Ashley De Santiago MD Apr 06, 2017 07:50
[2017-04-06] MEDS ORDERED: METOPROLOL SUCCINATE 50 MG EXTENDED RELEASE TAB PO SCH (09:00)
[2017-04-06] MEDS ORDERED: LISINOPRIL 10 MG TAB PO SCH (09:00)
[2017-04-06] MEDS: SODIUM CHLORIDE 0.9% FLUSH 10 ML FLUSH IV FLUSH SCH ×2 (09:00→20:21)
[2017-04-06] MEDS: PRAVASTATIN SOD 40 MG TAB PO SCH (09:15)
[2017-04-06] MEDS: APIXABAN 5 MG TABLET PO SCH ×2 (09:16→20:23)
[2017-04-06] MEDS: DOCUSATE SODIUM 50 MG/SENNA 8.6 MG TAB PO SCH ×2 (09:17→20:21)
--- NOTE | 2017-04-06 15:37 | HHI.PR ---
Subjective Remarks This is a pleasant 81 y/o male with Atrial Fibrillation on Eliquis, he has Hypertension, TIA, GERD, BPH, who came to ER with worsening lightheadedness, had an episode of Chest pain and weakness in the legs , He located pain to the left anterior chest without radiation, described as sharp, stabbing pains, not associated with any shortness of breath, nausea, or diaphoresis. found with Atrial fibrillation with RVR Heart rate in 150s, started on Cardizem drip in ER, seen by mechanical specialist Increased Metoprolol dose, discontinued HCTZ due to Orthostasis. 04/06: Seen in his bedroom discussed with nurse will add Cardizem by mouth to try to have him ready for tomorrow, continue with Atrial Fibrillation with RVR sometimes he goes to 110 per minute. no nausea , vomit or diarrhea Objective Vital Signs Date Time Temp Pulse Resp B/P Pulse Ox O2 Delivery O2 Flow Rate FiO2 04/06/17 15:10 97.6 96 19 124/86 97 04/06/17 15:00 99 04/06/17 14:00 91 04/06/17 13:00 98 04/06/17 12:00 71 04/06/17 11:00 88 18 121/77 96 04/06/17 11:00 83 04/06/17 10:35 132/77 04/06/17 10:32 125/78 04/06/17 10:30 112/76 04/06/17 10:00 83 04/06/17 09:15 119/68 04/06/17 09:00 114 04/06/17 08:00 124 04/06/17 07:00 98 04/06/17 07:00 97.6 106 19 135/89 96 04/06/17 06:00 116 04/06/17 05:00 84 04/06/17 04:00 100 04/06/17 03:00 98.9 85 18 128/68 96 04/06/17 03:00 80 04/06/17 02:00 86 04/06/17 01:00 104 04/06/17 00:00 92 04/05/17 23:00 88 04/05/17 23:00 98.2 99 18 125/75 96 04/05/17 22:00 108 04/05/17 21:00 100 04/05/17 20:00 108 04/05/17 19:00 97.9 109 20 129/82 96 04/05/17 19:00 110 04/05/17 18:18 97 04/05/17 17:13 88 04/05/17 16:36 78 I/O 04/05/17 04/05/17 04/05/17 04/06/17 04/06/17 04/06/17 06:59 14:59 22:59 06:59 14:59 22:59 Intake Total 1266 ml 1410 ml 361 ml Output Total 1400 ml 650 ml 1350 ml Balance -134 ml 760 ml -989 ml Intake Oral 480 ml 600 ml 240 ml IV Total 786 ml 810 ml 121 ml Output Urine Total 1400 ml 650 ml 1350 ml # Bowel Movements 0 Result Diagram: 04/05/17 0337 04/06/17 0556 Imaging Last Impressions Head CT 04/04/17 1216 Signed Impressions: Service Date/Time: Tuesday, April 04, 2017 12:40 - CONCLUSION: Slight atrophic and small vessel ischemic changes without any evidence for acute hemorrhage or mass effect. Keven Velasquez MD Chest X-Ray 04/04/17 1216 Signed Impressions: Service Date/Time: Tuesday, April 04, 2017 12:23 - CONCLUSION: No acute cardiopulmonary disease. Keven Velasquez MD Procedures None Other Results Laboratory Tests Test 04/04/17 04/04/17 04/05/17 04/05/17 12:20 15:00 00:28 03:37 Prothrombin Time 11.7 SEC Prothromb Time International 1.1 RATIO Ratio Activated Partial 29.9 SEC Thromboplast Time B-Type Natriuretic Peptide 450 PG/ML Lipase 86 U/L Thyroid Stimulating Hormone 2.330 uIU/ML 3rd Gen Urine Color YELLOW Urine Turbidity CLEAR Urine pH 5.5 Urine Specific [place] 1.018 Urine Protein NEG mg/dL Urine Glucose (UA) NEG mg/dL Urine Ketones NEG mg/dL Urine Occult Blood NEG Urine Nitrite NEG Urine Bilirubin NEG Urine Urobilinogen LESS THAN 2.0 MG/DL Urine Leukocyte Esterase NEG Urine RBC 1 /hpf Urine WBC 1 /hpf Urine Squamous Epithelial <1 /hpf Cells Urine Mucus FEW /lpf Microscopic Urinalysis Comment CULT NOT INDICATED Total Creatine Kinase 47 U/L Troponin I LESS THAN 0.02 NG/ML White Blood Count 7.1 TH/MM3 Red Blood Count 4.34 MIL/MM3 Hemoglobin 14.0 GM/DL Hematocrit 39.9 % Mean Corpuscular Volume 92.0 FL Mean Corpuscular Hemoglobin 32.2 PG Mean Corpuscular Hemoglobin 35.0 % Concent Red Cell Distribution Width 13.1 % Platelet Count 166 TH/MM3 Mean Platelet Volume 8.8 FL Neutrophils (%) (Auto) 59.1 % Lymphocytes (%) (Auto) 30.0 % Monocytes (%) (Auto) 8.1 % Eosinophils (%) (Auto) 2.2 % Basophils (%) (Auto) 0.6 % Neutrophils # (Auto) 4.2 TH/MM3 Lymphocytes # (Auto) 2.1 TH/MM3 Monocytes # (Auto) 0.6 TH/MM3 Eosinophils # (Auto) 0.2 TH/MM3 Basophils # (Auto) 0.0 TH/MM3 CBC Comment DIFF FINAL Differential Comment Sodium Level 139 MEQ/L Chloride Level 105 MEQ/L Carbon Dioxide Level 27.1 MEQ/L Anion Gap 7 MEQ/L Blood Urea Nitrogen 19 MG/DL Creatinine 1.08 MG/DL Estimat Glomerular Filtration 65 ML/MIN Rate Random Glucose 97 MG/DL Calcium Level 8.3 MG/DL Triglycerides Level 97 MG/DL Cholesterol Level 100 MG/DL LDL Cholesterol 46 MG/DL HDL Cholesterol 34.7 MG/DL Cholesterol/HDL Ratio 2.88 RATIO Test 04/06/17 05:56 Potassium Level 4.0 MEQ/L Magnesium Level 2.0 MG/DL Objective Remarks GENERAL: Well-nourished, well-developed pleasant elderly male patient in [facility]. SKIN: Warm and dry. No rash. HEAD: Normocephalic. Atraumatic. EYES: Pupils equal and round. No scleral icterus. No injection or drainage. ENT: No nasal bleeding or discharge. Mucous membranes pink and moist. NECK: Supple. Trachea midline. CARDIOVASCULAR: Irregularly irregular rate and rhythm. S1, S2 noted. No murmur appreciated. RESPIRATORY: No accessory muscle use. Clear to auscultation. Breath sounds equal bilaterally. GASTROINTESTINAL: Abdomen soft, non-tender, nondistended. Normoactive bowel sounds x4. MUSCULOSKELETAL: No obvious deformities. Extremities without clubbing, cyanosis , or edema. NEUROLOGICAL: Awake and alert. No obvious cranial nerve deficits. Motor grossly within normal limits. Normal speech. PSYCHIATRIC: Appropriate mood and affect; insight and judgment normal. Medications and IVs Current Medications Medications (Trade) Dose Ordered Sig/Magan Route Start Time Stop Time Status Last Admin (Cardizem Inj/NS Inj) 125 ml @ 0 mls/hr TITRATE IV 04/04/17 12:30 04/04/17 13:00 (Eliquis) 5 mg BID PO 04/04/17 21:00 04/06/17 09:16 (Cardura) 4 mg HS PO 04/04/17 21:00 04/05/17 21:43 (Pravachol) 40 mg DAILY PO 04/05/17 09:00 04/06/17 09:15 (NS Flush) 2 ml UNSCH PRN IV FLUSH 04/04/17 13:45 (NS Flush) 2 ml BID IV FLUSH 04/04/17 21:00 04/05/17 21:44 (Tylenol) 650 mg Q4H PRN PO 04/04/17 13:45 (Zofran Inj) 4 mg Q6H PRN IVP 04/04/17 13:45 (Narcan Inj) 0.4 mg UNSCH PRN IV 04/04/17 13:45 (Lyric-Colace) 1 tab BID PO 04/04/17 21:00 04/06/17 09:17 (Milk Of Magnesia Liq) 30 ml Q12H PRN PO 04/04/17 13:45 (Senokot) 17.2 mg Q12H PRN PO 04/04/17 13:45 (Dulcolax Supp) 10 mg DAILY PRN RECTAL 04/04/17 13:45 (Lactulose Liq) 30 ml DAILY PRN PO 04/04/17 13:45 (Pill Splitter) 1 ea UNSCH PRN OTHER 04/04/17 14:00 (Toprol Xl) 150 mg DAILY PO 04/06/17 09:00 04/06/17 09:17 A/P Assessment and Plan 81-year-old male with history of atrial fibrillation on Eliquis, HTN, TIA, GERD , BPH, presents with a ten-day history of worsening lightheadedness. Atrial fibrillation with RVR: EKG upon arrival showed A. fib with RVR, HR 156. S /p IV Cardizem bolus, initially heart rate improved however went back up to 120s -130s, therefore started on IV Cardizem drip. -Continue IV Cardizem drip and Metoprolol add Cardizem tablets 30 mg every six hours and follow. -Continue patient's Eliquis, statin, and metoprolol -monitor on telemetry -mechanical specialist following Doctor Jonnathan and continue on Cardizem drip, continue with Atrial Fibrillation with RVR. Lightheadedness: suspect multifactorial secondary to orthostatic hypotension in combination with afib RVR as above -records reviewed, hx of Echo showed mild LVH with normal systolic function EF 55-60% -orthostatic BP positive, adjusted medicines by mechanical specialist Amlodipine discontinued, HCTZ discontinued and increased to 100 mg of Metoprolol. new Orthostatic vital signs in am tomorrow. Atypical Chest Pain: lasted few seconds, suspect secondary to afib, no hx of CAD. Initial troponin negative and EKG without acute ischemic changes -Ruled out ACS. -monitor on telemetry -check lipid panel in am Electrolyte derangement replaced. All other medical conditions stable, continue home medications as appropriate. DVT Prophylaxis: on Eliquis Code Status Full Code Discussed Condition With Patient and nurse, all questions answered to the best of my abilities. Discharge Planning Expected by tomorrow Atul Schmidt MD Apr 06, 2017 15:37
[2017-04-06] MEDS: DILTIAZEM HCL 30 MG TAB PO SCH ×2 (18:32→23:34)
[2017-04-06] MEDS: DOXAZOSIN MESYLATE 4 MG TAB PO SCH (20:20)
[2017-04-06] MEDS: DILTIAZEM INJ 125 MG in SODIUM CHLORIDE 0.9% INJ 100 ML IV SCH (22:53)
[2017-04-07] VITALS (26 sets, daily range): BP systolic 105–144; BP diastolic 43–95; PULSE 71–124; RESP 17–20; TEMP 97.5–98.2; O2SAT 95–97
[2017-04-07] MEDS: DILTIAZEM HCL 30 MG TAB PO SCH (05:59)
--- NOTE | 2017-04-07 07:27 | PD.CARD.PN ---
Subjective Subjective Remarks Pt without complaints Objective Medications Current Medications Medications (Trade) Dose Ordered Sig/Magan Route Start Time Stop Time Status Last Admin (Cardizem Inj/NS Inj) 125 ml @ 0 mls/hr TITRATE IV 04/04/17 12:30 04/06/17 22:53 (Eliquis) 5 mg BID PO 04/04/17 21:00 04/06/17 20:23 (Cardura) 4 mg HS PO 04/04/17 21:00 04/06/17 20:20 (Pravachol) 40 mg DAILY PO 04/05/17 09:00 04/06/17 09:15 (NS Flush) 2 ml UNSCH PRN IV FLUSH 04/04/17 13:45 (NS Flush) 2 ml BID IV FLUSH 04/04/17 21:00 04/06/17 20:21 (Tylenol) 650 mg Q4H PRN PO 04/04/17 13:45 (Zofran Inj) 4 mg Q6H PRN IVP 04/04/17 13:45 (Narcan Inj) 0.4 mg UNSCH PRN IV 04/04/17 13:45 (Lyric-Colace) 1 tab BID PO 04/04/17 21:00 04/06/17 09:17 (Milk Of Magnesia Liq) 30 ml Q12H PRN PO 04/04/17 13:45 04/06/17 18:32 (Senokot) 17.2 mg Q12H PRN PO 04/04/17 13:45 (Dulcolax Supp) 10 mg DAILY PRN RECTAL 04/04/17 13:45 (Lactulose Liq) 30 ml DAILY PRN PO 04/04/17 13:45 (Pill Splitter) 1 ea UNSCH PRN OTHER 04/04/17 14:00 (Toprol Xl) 150 mg DAILY PO 04/06/17 09:00 04/06/17 09:17 (Cardizem) 30 mg Q6HR PO 04/06/17 18:15 04/07/17 05:59 Vital Signs / I&O Vital Signs Date Time Temp Pulse Resp B/P Pulse Ox O2 Delivery O2 Flow Rate FiO2 04/07/17 04:00 98.2 99 20 111/80 96 04/07/17 04:00 89 04/07/17 00:00 97.9 112 20 134/67 95 125/95 144/80 04/07/17 00:00 100 04/06/17 20:00 97.3 85 20 143/64 99 04/06/17 20:00 85 04/06/17 18:00 112 04/06/17 17:00 91 04/06/17 15:10 97.6 96 19 124/86 97 04/06/17 15:00 99 04/06/17 14:00 91 04/06/17 13:00 98 04/06/17 12:00 71 04/06/17 11:00 88 18 121/77 96 04/06/17 11:00 83 04/06/17 10:35 132/77 04/06/17 10:32 125/78 04/06/17 10:30 112/76 04/06/17 10:00 83 04/06/17 09:15 119/68 04/06/17 09:00 114 04/06/17 08:00 124 I/O 04/06/17 04/06/17 04/06/17 04/07/17 04/07/17 04/07/17 06:59 14:59 22:59 06:59 14:59 22:59 Intake Total 361 ml 107 ml 232 ml Output Total 1350 ml 1100 ml 600 ml Balance -989 ml -993 ml -368 ml Intake Oral 240 ml 200 ml IV Total 121 ml 107 ml 32 ml Output Urine Total 1350 ml 1100 ml 600 ml Physical Exam GENERAL: Well developed, well nourished. No acute distress. HEENT: Jugular venous pressure is normal. CHEST: Lungs clear to auscultation bilaterally. Unlabored respiratory effort. CARDIAC: iregular rate and rhythm without S3, S4, or murmur. ABDOMEN: Soft, nontender, no hepatosplenomegaly. Bowel sounds present. EXTREMITIES: No clubbing, cyanosis, or edema. Assessment and Plan Assessment and Plan AF - fair rate control, dilt gtt@ 5 => increase metoprolol again, =>on PO dilt, that will be increased as well -eliquis HTN- orthostasis- good Ashley De Santiago MD Apr 07, 2017 07:27
[2017-04-07] MEDS ORDERED: DILTIAZEM HCL 30 MG TAB PO PRN (07:30)
[2017-04-07] MEDS ORDERED: DILTIAZEM HCL 30 MG TAB PO ONE (07:30)
--- NOTE | 2017-04-07 08:55 | HHI.PR ---
Subjective Remarks in no acute distress. no chest pain or sob. still on cardizem drip. daughter at the bedside. Objective Vitals Vital Signs Date Time Temp Pulse Resp B/P Pulse Ox O2 Delivery O2 Flow Rate FiO2 04/07/17 07:00 107 04/07/17 07:00 102 17 105/75 96 04/07/17 06:00 106 04/07/17 05:00 88 04/07/17 04:00 98.2 99 20 111/80 96 04/07/17 04:00 89 04/07/17 03:00 124 04/07/17 02:00 96 04/07/17 01:00 102 04/07/17 00:00 97.9 112 20 134/67 95 125/95 144/80 04/07/17 00:00 100 04/06/17 23:00 118 04/06/17 22:00 88 04/06/17 21:00 80 04/06/17 20:00 97.3 85 20 143/64 99 04/06/17 20:00 85 04/06/17 19:00 90 04/06/17 18:00 112 04/06/17 17:00 91 04/06/17 15:10 97.6 96 19 124/86 97 04/06/17 15:00 99 04/06/17 14:00 91 04/06/17 13:00 98 04/06/17 12:00 71 04/06/17 11:00 88 18 121/77 96 04/06/17 11:00 83 04/06/17 10:35 132/77 04/06/17 10:32 125/78 04/06/17 10:30 112/76 04/06/17 10:00 83 04/06/17 09:15 119/68 04/06/17 09:00 114 I/O 04/06/17 04/06/17 04/06/17 04/07/17 04/07/17 04/07/17 07:00 15:00 23:00 07:00 15:00 23:00 Intake Total 361 ml 107 ml 232 ml Output Total 1350 ml 1100 ml 600 ml Balance -989 ml -993 ml -368 ml Intake Oral 240 ml 200 ml IV Total 121 ml 107 ml 32 ml Output Urine Total 1350 ml 1100 ml 600 ml Result Diagram: 04/05/17 0337 04/06/17 0556 Imaging Last Impressions Head CT 04/04/17 1216 Signed Impressions: Service Date/Time: Tuesday, April 04, 2017 12:40 - CONCLUSION: Slight atrophic and small vessel ischemic changes without any evidence for acute hemorrhage or mass effect. Keven Velasquez MD Chest X-Ray 04/04/17 1216 Signed Impressions: Service Date/Time: Tuesday, April 04, 2017 12:23 - CONCLUSION: No acute cardiopulmonary disease. Keven Velasquez MD Objective Remarks GENERAL: This is a well-nourished, well-developed patient, in no apparent distress. CARDIOVASCULAR:mildly tachycardic with irregular rhythm without murmurs, gallops , or rubs. RESPIRATORY: Clear to auscultation. Breath sounds equal bilaterally. No wheezes , rales, or rhonchi. GASTROINTESTINAL: Abdomen soft, non-tender, nondistended. Normal, active bowel sounds MUSCULOSKELETAL: Extremities without clubbing, cyanosis, or edema. NEURO: Alert & Oriented x4 to person, place, time, situation. Moves all ext x4 Medications and IVs Current Medications Diltiazem HCl 20 mg 20 mg ONCE ONCE IV Last administered on 04/04/17 12:24; Start 04/04/17 at 12:30; Stop 04/04/17 at 12:31; Status DC Diltiazem HCl/ Sodium Chloride (Cardizem Inj/NS Inj) 125 ml @ 0 mls/hr TITRATE IV Last administered on 04/06/17 22:53; Start 04/04/17 at 12:30 Amlodipine Besylate (Norvasc) 5 mg DAILY PO ; Start 04/05/17 at 09:00; Stop at 07:52; Status DC Apixaban (Eliquis) 5 mg BID PO Last administered on 04/06/17 20:23; Start at 21:00 Lisinopril (Prinivil) 20 mg BID PO Last administered on 04/05/17 09:11; Start 04/04/17 at 21:00; Stop 04/05/17 at 12:41; Status DC Doxazosin Mesylate (Cardura) 4 mg HS PO Last administered on 04/06/17 20:20; Start 04/04/17 at 21:00 Hydrochlorothiazide (Hydrodiuril) 25 mg DAILY PO ; Start 04/05/17 at 09:00; Stop 04/05/17 at 09:00; Status DC Pravastatin Sodium (Pravachol) 40 mg DAILY PO Last administered on 04/06/17 09 :15; Start 04/05/17 at 09:00 Metoprolol Succinate 75 mg 75 mg DAILY PO ; Start 04/05/17 at 09:00; Stop at 09:00; Status DC Sodium Chloride (NS 1000 ml Inj) 1,000 ml @ 83 mls/hr Q12H3M IV Last administered on 04/05/17 13:49; Start 04/04/17 at 13:43; Stop 04/05/17 at 18:58 ; Status DC Sodium Chloride (NS Flush) 2 ml UNSCH PRN IV FLUSH FLUSH AFTER USING IV ACCESS ; Start 04/04/17 at 13:45 Sodium Chloride (NS Flush) 2 ml BID IV FLUSH Last administered on 04/06/17 20: 21; Start 04/04/17 at 21:00 Acetaminophen (Tylenol) 650 mg Q4H PRN PO TEMP > 100.4; Start 04/04/17 at 13:45 Ondansetron HCl (Zofran Inj) 4 mg Q6H PRN IVP NAUSEA OR VOMITING; Start at 13:45 Naloxone HCl (Narcan Inj) 0.4 mg UNSCH PRN IV SEE LABEL COMMENTS; Start at 13:45 Senna/Docusate Sodium (Lyric-Colace) 1 tab BID PO Last administered on 09:17; Start 04/04/17 at 21:00 Magnesium Hydroxide (Milk Of Magnesia Liq) 30 ml Q12H PRN PO MILD - MODERATE CONSTIPATION Last administered on 04/06/17 18:32; Start 04/04/17 at 13:45 Sennosides (Senokot) 17.2 mg Q12H PRN PO MODERATE - SEVERE CONSTIPATION; Start 04/04/17 at 13:45 Bisacodyl (Dulcolax Supp) 10 mg DAILY PRN RECTAL SEVERE CONSITIPATION; Start at 13:45 Lactulose (Lactulose Liq) 30 ml DAILY PRN PO SEVERE CONSITIPATION; Start at 13:45 Miscellaneous (Pill Splitter) 1 ea UNSCH PRN OTHER SEE LABEL COMMENTS; Start at 14:00 Metoprolol Succinate (Toprol Xl) 100 mg DAILY PO Last administered on 09:11; Start 04/05/17 at 09:00; Stop 04/06/17 at 07:52; Status DC Metoprolol Succinate (Toprol Xl) 25 mg ONCE ONCE PO Last administered on 17:43; Start 04/04/17 at 16:00; Stop 04/04/17 at 16:01; Status DC Lisinopril (Prinivil) 10 mg DAILY PO ; Start 04/06/17 at 09:00; Stop 04/06/17 at 09:00; Status DC Potassium Chloride (KCl) 40 meq ONCE ONCE PO Last administered on 04/05/17 18 :35; Start 04/05/17 at 18:00; Stop 04/05/17 at 18:01; Status DC Metoprolol Succinate (Toprol Xl) 150 mg DAILY PO Last administered on 09:17; Start 04/06/17 at 09:00; Stop 04/07/17 at 07:30; Status DC Diltiazem HCl (Cardizem) 30 mg Q6HR PO Last administered on 04/07/17 05:59; Start 04/06/17 at 18:15; Stop 04/07/17 at 07:30; Status DC Diltiazem HCl (Cardizem) 60 mg Q6HR PO ; Start 04/07/17 at 12:00 Metoprolol Succinate (Toprol Xl) 200 mg DAILY PO ; Start 04/07/17 at 09:00 Diltiazem HCl (Cardizem) 30 mg ONCE ONCE PO ; Start 04/07/17 at 07:30; Stop at 07:43; Status DC Diltiazem HCl (Cardizem) 30 mg Q6HR PRN PO RAPID HEART RATE; Start 04/07/17 at 07:30 A/P Assessment and Plan A/P Atrial fibrillation with RVR: -Continue IV Cardizem drip - metoprolol and po cardizme were increased. -Continue patient's Eliquis. -monitor on telemetry -Cardiology following. Lightheadedness: suspect multifactorial secondary to orthostatic hypotension in combination with afib RVR as above -records reviewed, hx of Echo showed mild LVH with normal systolic function EF 55-60% -orthostatic BP positive, adjusted medicines by Cardiology . Amlodipine discontinued, HCTZ discontinued. Atypical Chest Pain: lasted few seconds, suspect secondary to afib, no hx of CAD. Initial troponin negative and EKG without acute ischemic changes -Ruled out ACS. -monitor on telemetry All other medical conditions stable, continue home medications as appropriate. DVT Prophylaxis: on Eliquis Discharge Planning when off the cardizem drip and cleared by cardiology. Jayla Bland MD Apr 07, 2017 08:54
[2017-04-07] MEDS: SODIUM CHLORIDE 0.9% FLUSH 10 ML FLUSH IV FLUSH SCH ×2 (09:00→22:00)
[2017-04-07] MEDS: APIXABAN 5 MG TABLET PO SCH ×2 (09:04→22:00)
[2017-04-07] MEDS: DOCUSATE SODIUM 50 MG/SENNA 8.6 MG TAB PO SCH ×2 (09:04→21:00)
[2017-04-07] MEDS: METOPROLOL SUCCINATE 50 MG EXTENDED RELEASE TAB PO SCH (09:05)
[2017-04-07] MEDS: PRAVASTATIN SOD 40 MG TAB PO SCH (09:05)
[2017-04-07] MEDS: DILTIAZEM HCL 60 MG TAB PO SCH ×2 (12:11→18:10)
[2017-04-07] MEDS: DOXAZOSIN MESYLATE 4 MG TAB PO SCH (22:00)
[2017-04-08] VITALS (9 sets, daily range): BP systolic 104–130; BP diastolic 65–88; PULSE 78–118; RESP 18; TEMP 98.3; O2SAT 97
[2017-04-08] MEDS: DILTIAZEM HCL 60 MG TAB PO SCH ×2 (05:56)
--- NOTE | 2017-04-08 07:14 | PD.CARD.PN ---
Subjective Subjective Remarks PT without complaints Objective Medications Current Medications Medications (Trade) Dose Ordered Sig/Magan Route Start Time Stop Time Status Last Admin (Cardizem Inj/NS Inj) 125 ml @ 0 mls/hr TITRATE IV 04/04/17 12:30 04/06/17 22:53 (Eliquis) 5 mg BID PO 04/04/17 21:00 04/07/17 22:00 (Cardura) 4 mg HS PO 04/04/17 21:00 04/07/17 22:00 (Pravachol) 40 mg DAILY PO 04/05/17 09:00 04/07/17 09:05 (NS Flush) 2 ml UNSCH PRN IV FLUSH 04/04/17 13:45 (NS Flush) 2 ml BID IV FLUSH 04/04/17 21:00 04/07/17 22:00 (Tylenol) 650 mg Q4H PRN PO 04/04/17 13:45 (Zofran Inj) 4 mg Q6H PRN IVP 04/04/17 13:45 (Narcan Inj) 0.4 mg UNSCH PRN IV 04/04/17 13:45 (Lyric-Colace) 1 tab BID PO 04/04/17 21:00 04/07/17 09:04 (Milk Of Magnesia Liq) 30 ml Q12H PRN PO 04/04/17 13:45 04/06/17 18:32 (Senokot) 17.2 mg Q12H PRN PO 04/04/17 13:45 (Dulcolax Supp) 10 mg DAILY PRN RECTAL 04/04/17 13:45 (Lactulose Liq) 30 ml DAILY PRN PO 04/04/17 13:45 (Pill Splitter) 1 ea UNSCH PRN OTHER 04/04/17 14:00 (Cardizem) 60 mg Q6HR PO 04/07/17 12:00 04/08/17 05:56 (Toprol Xl) 200 mg DAILY PO 04/07/17 09:00 04/07/17 09:05 (Cardizem) 30 mg Q6HR PRN PO 04/07/17 07:30 Vital Signs / I&O Vital Signs Date Time Temp Pulse Resp B/P Pulse Ox O2 Delivery O2 Flow Rate FiO2 04/08/17 06:00 108 04/08/17 05:58 98.3 97 18 130/88 97 04/08/17 05:00 101 04/08/17 04:00 94 04/08/17 03:00 98 04/08/17 02:00 101 04/08/17 01:00 108 04/08/17 00:00 118 04/07/17 23:50 97.7 98 18 124/88 96 04/07/17 23:00 96 04/07/17 22:00 88 04/07/17 21:00 96 04/07/17 20:50 97.7 105 18 133/86 95 04/07/17 20:00 96 04/07/17 19:00 88 04/07/17 18:00 82 04/07/17 17:06 96 04/07/17 16:00 81 04/07/17 15:00 97.5 74 18 126/43 96 04/07/17 15:00 92 04/07/17 14:08 80 04/07/17 13:01 83 04/07/17 12:00 71 04/07/17 11:00 75 18 110/78 97 04/07/17 11:00 71 04/07/17 10:00 76 04/07/17 09:00 101 04/07/17 08:00 92 I/O 04/07/17 04/07/17 04/07/17 04/08/17 04/08/17 04/08/17 07:00 15:00 23:00 07:00 15:00 23:00 Intake Total 232 ml 840 ml 240 ml Output Total 600 ml 500 ml 320 ml Balance -368 ml 340 ml -80 ml Intake Oral 200 ml 840 ml 240 ml IV Total 32 ml 0 ml Output Urine Total 600 ml 500 ml 320 ml Physical Exam GENERAL: Well developed, well nourished. No acute distress. HEENT: Jugular venous pressure is normal. CHEST: Lungs clear to auscultation bilaterally. Unlabored respiratory effort. CARDIAC: iregular rate and rhythm without S3, S4, or murmur. ABDOMEN: Soft, nontender, no hepatosplenomegaly. Bowel sounds present. EXTREMITIES: No clubbing, cyanosis, or edema. Assessment and Plan Assessment and Plan AF - good on PO meds -eliquis HTN- orthostasis-resolved dispo- ok for d/c home, follow up in 7-10 days Ashley De Santiago MD Apr 08, 2017 07:14
--- NOTE | 2017-04-08 08:06 | HHI.PR ---
Subjective Remarks resting comfortably with no distress. no chest pain or sob. wants to go home today. Objective Vitals Vital Signs Date Time Temp Pulse Resp B/P Pulse Ox O2 Delivery O2 Flow Rate FiO2 04/08/17 06:00 108 04/08/17 05:58 98.3 97 18 130/88 97 04/08/17 05:00 101 04/08/17 04:00 94 04/08/17 03:00 98 04/08/17 02:00 101 04/08/17 01:00 108 04/08/17 00:00 118 04/07/17 23:50 97.7 98 18 124/88 96 04/07/17 23:00 96 04/07/17 22:00 88 04/07/17 21:00 96 04/07/17 20:50 97.7 105 18 133/86 95 04/07/17 20:00 96 04/07/17 19:00 88 04/07/17 18:00 82 04/07/17 17:06 96 04/07/17 16:00 81 04/07/17 15:00 97.5 74 18 126/43 96 04/07/17 15:00 92 04/07/17 14:08 80 04/07/17 13:01 83 04/07/17 12:00 71 04/07/17 11:00 75 18 110/78 97 04/07/17 11:00 71 04/07/17 10:00 76 04/07/17 09:00 101 I/O 04/07/17 04/07/17 04/07/17 04/08/17 04/08/17 04/08/17 07:00 15:00 23:00 07:00 15:00 23:00 Intake Total 232 ml 840 ml 240 ml Output Total 600 ml 500 ml 320 ml Balance -368 ml 340 ml -80 ml Intake Oral 200 ml 840 ml 240 ml IV Total 32 ml 0 ml Output Urine Total 600 ml 500 ml 320 ml Result Diagram: 04/05/17 0337 04/06/17 0556 Imaging Last Impressions Head CT 04/04/17 1216 Signed Impressions: Service Date/Time: Tuesday, April 04, 2017 12:40 - CONCLUSION: Slight atrophic and small vessel ischemic changes without any evidence for acute hemorrhage or mass effect. Keven Velasquez MD Chest X-Ray 04/04/17 1216 Signed Impressions: Service Date/Time: Tuesday, April 04, 2017 12:23 - CONCLUSION: No acute cardiopulmonary disease. Keven Velasquez MD Objective Remarks GENERAL: This is a well-nourished, well-developed patient, in no apparent distress. CARDIOVASCULAR: irregular rhythm without murmurs, gallops, or rubs. RESPIRATORY: Clear to auscultation. Breath sounds equal bilaterally. No wheezes , rales, or rhonchi. GASTROINTESTINAL: Abdomen soft, non-tender, nondistended. Normal, active bowel sounds MUSCULOSKELETAL: Extremities without clubbing, cyanosis, or edema. NEURO: Alert & Oriented x4 to person, place, time, situation. Moves all ext x4 Procedures none Medications and IVs Current Medications Diltiazem HCl 20 mg 20 mg ONCE ONCE IV Last administered on 04/04/17 12:24; Start 04/04/17 at 12:30; Stop 04/04/17 at 12:31; Status DC Diltiazem HCl/ Sodium Chloride (Cardizem Inj/NS Inj) 125 ml @ 0 mls/hr TITRATE IV Last administered on 04/06/17 22:53; Start 04/04/17 at 12:30 Amlodipine Besylate (Norvasc) 5 mg DAILY PO ; Start 04/05/17 at 09:00; Stop at 07:52; Status DC Apixaban (Eliquis) 5 mg BID PO Last administered on 04/07/17 22:00; Start at 21:00 Lisinopril (Prinivil) 20 mg BID PO Last administered on 04/05/17 09:11; Start 04/04/17 at 21:00; Stop 04/05/17 at 12:41; Status DC Doxazosin Mesylate (Cardura) 4 mg HS PO Last administered on 04/07/17 22:00; Start 04/04/17 at 21:00 Hydrochlorothiazide (Hydrodiuril) 25 mg DAILY PO ; Start 04/05/17 at 09:00; Stop 04/05/17 at 09:00; Status DC Pravastatin Sodium (Pravachol) 40 mg DAILY PO Last administered on 04/07/17 09 :05; Start 04/05/17 at 09:00 Metoprolol Succinate 75 mg 75 mg DAILY PO ; Start 04/05/17 at 09:00; Stop at 09:00; Status DC Sodium Chloride (NS 1000 ml Inj) 1,000 ml @ 83 mls/hr Q12H3M IV Last administered on 04/05/17 13:49; Start 04/04/17 at 13:43; Stop 04/05/17 at 18:58 ; Status DC Sodium Chloride (NS Flush) 2 ml UNSCH PRN IV FLUSH FLUSH AFTER USING IV ACCESS ; Start 04/04/17 at 13:45 Sodium Chloride (NS Flush) 2 ml BID IV FLUSH Last administered on 04/07/17 22: 00; Start 04/04/17 at 21:00 Acetaminophen (Tylenol) 650 mg Q4H PRN PO TEMP > 100.4; Start 04/04/17 at 13:45 Ondansetron HCl (Zofran Inj) 4 mg Q6H PRN IVP NAUSEA OR VOMITING; Start at 13:45 Naloxone HCl (Narcan Inj) 0.4 mg UNSCH PRN IV SEE LABEL COMMENTS; Start at 13:45 Senna/Docusate Sodium (Lyric-Colace) 1 tab BID PO Last administered on 09:04; Start 04/04/17 at 21:00 Magnesium Hydroxide (Milk Of Magnesia Liq) 30 ml Q12H PRN PO MILD - MODERATE CONSTIPATION Last administered on 04/06/17 18:32; Start 04/04/17 at 13:45 Sennosides (Senokot) 17.2 mg Q12H PRN PO MODERATE - SEVERE CONSTIPATION; Start 04/04/17 at 13:45 Bisacodyl (Dulcolax Supp) 10 mg DAILY PRN RECTAL SEVERE CONSITIPATION; Start at 13:45 Lactulose (Lactulose Liq) 30 ml DAILY PRN PO SEVERE CONSITIPATION; Start at 13:45 Miscellaneous (Pill Splitter) 1 ea UNSCH PRN OTHER SEE LABEL COMMENTS; Start at 14:00 Metoprolol Succinate (Toprol Xl) 100 mg DAILY PO Last administered on 09:11; Start 04/05/17 at 09:00; Stop 04/06/17 at 07:52; Status DC Metoprolol Succinate (Toprol Xl) 25 mg ONCE ONCE PO Last administered on 17:43; Start 04/04/17 at 16:00; Stop 04/04/17 at 16:01; Status DC Lisinopril (Prinivil) 10 mg DAILY PO ; Start 04/06/17 at 09:00; Stop 04/06/17 at 09:00; Status DC Potassium Chloride (KCl) 40 meq ONCE ONCE PO Last administered on 04/05/17 18 :35; Start 04/05/17 at 18:00; Stop 04/05/17 at 18:01; Status DC Metoprolol Succinate (Toprol Xl) 150 mg DAILY PO Last administered on 09:17; Start 04/06/17 at 09:00; Stop 04/07/17 at 07:30; Status DC Diltiazem HCl (Cardizem) 30 mg Q6HR PO Last administered on 04/07/17 05:59; Start 04/06/17 at 18:15; Stop 04/07/17 at 07:30; Status DC Diltiazem HCl (Cardizem) 60 mg Q6HR PO Last administered on 04/08/17 05:56; Start 04/07/17 at 12:00 Metoprolol Succinate (Toprol Xl) 200 mg DAILY PO Last administered on 09:05; Start 04/07/17 at 09:00 Diltiazem HCl (Cardizem) 30 mg ONCE ONCE PO Last administered on 04/07/17 09: 03; Start 04/07/17 at 07:30; Stop 04/07/17 at 07:43; Status DC Diltiazem HCl (Cardizem) 30 mg Q6HR PRN PO RAPID HEART RATE; Start 04/07/17 at 07:30 A/P Assessment and Plan A/P Atrial fibrillation with RVR: now HR better controlled. - metoprolol and po cardizme were increased. -Continue patient's Eliquis. -Cardiology follow-up appreciated and cleared for discharge. Lightheadedness: suspect multifactorial secondary to orthostatic hypotension in combination with afib RVR as above -records reviewed, hx of Echo showed mild LVH with normal systolic function EF 55-60% -orthostatic BP positive. Amlodipine discontinued, HCTZ discontinued. Atypical Chest Pain: lasted few seconds, suspect secondary to afib, no hx of CAD. Initial troponin negative and EKG without acute ischemic changes -Ruled out ACS. -monitor on telemetry All other medical conditions stable, continue home medications as appropriate. DVT Prophylaxis: on Eliquis Discharge Planning dc home today with f/u with pcp and cardiology. see med list. d/w the patient and RN. time spent 31 min. Jayla Bland MD Apr 08, 2017 08:06
[2017-04-08] MEDS ORDERED: CARD240C6 PO (08:08)
[2017-04-08] MEDS ORDERED: METO50TA11 PO (08:08)
--- NOTE | 2017-04-08 08:09 | HHI.DCPOC ---
Discharge Care Plan Diagnosis: (1) Atypical chest pain (2) Atrial fibrillation with RVR Your Health Problems Are: Chest Pain Goals to Promote Your Health * To prevent worsening of your condition and complications * To maintain your health at the optimal level Directions to Meet Your Goals Take your medications as prescribed Follow your dietary instruction Follow activity as directed Keep your appointments as scheduled Take your immunizations and boosters as scheduled If your symptoms worsen call your PCP, if no PCP go to Urgent Care Center or Emergency Room Smoking is Dangerous to Your Health. Avoid second hand smoke Call the 24-hour hour crisis hotline for domestic abuse at Jayla Bland MD Apr 08, 2017 08:09
--- NOTE | 2017-04-08 08:09 | HHI.DS ---
Discharge Summary Admission Date Apr 04, 2017 at 13:42 Discharge Date: Apr 08, 2017 Admitting Diagnosis a fib in RVR, orthostathic hypotension (1) Atrial fibrillation with RVR ICD Code: I48.91 Diagnosis: Principal (2) Orthostatic hypotension ICD Code: I95.1 Diagnosis: Principal (3) Atypical chest pain ICD Code: R07.89 Diagnosis: Principal Procedures none Brief History - From Admission 81-year-old male with history of atrial fibrillation on Eliquis, HTN, TIA, GERD , BPH, presents with a ten-day history of worsening lightheadedness. The patient reports almost every day over the past ten days he has noticed lightheadedness upon awakening, described as feeling foggy in the head with slight blurred vision. He states most of the days the sensation will go away by 11 AM and he just thought this was related to old age. However over the past two days the lightheadedness has persisted, and today he had an episode of chest pain and weakness in the legs. He locates pain to the left anterior chest without radiation, described as sharp, stabbing pains, not associated with any shortness of breath, nausea, or diaphoresis. The pain went away on its own after a few seconds. The symptoms worried him therefore he decided to present to the ER. The patient reports he has been under a lot of stress lately , with 2 close friends passing away, and dealing with family issues. He believes the stress along with low blood pressures are causing his symptoms. He is concerned that he may need to cut back on his BP meds. He has been taking his BP at the grocery store over the past few weeks and it is mostly in the 120s /60s however did have a reading last week in the low 100s. Upon his arrival to the ER, he was found to be in Afib with RVR HR in the 150s. He denies any palpitations or shortness of breath. He reports compliance with his medications. He has been started on Cardizem drip with improvement of HR in the low 100s. He is requesting to see his baker test Dr. Tirado. He also has PCP Dr. Xie and sees a [facility] Yanes. CBC/BMP: 04/05/17 0337 04/06/17 0556 Imaging Last Impressions Head CT 04/04/171215 Signed Impressions: Service Date/Time: Tuesday, April 04, 2017 12:40 - CONCLUSION: Slight atrophic and small vessel ischemic changes without any evidence for acute hemorrhage or mass effect. Keven Velasquez MD Chest X-Ray 04/04/171215 Signed Impressions: Service Date/Time: Tuesday, April 04, 2017 12:23 - CONCLUSION: No acute cardiopulmonary disease. Keven Velasquez MD PE at Discharge GENERAL: This is a well-nourished, well-developed patient, in no apparent distress. CARDIOVASCULAR: irregular rhythm without murmurs, gallops, or rubs. RESPIRATORY: Clear to auscultation. Breath sounds equal bilaterally. No wheezes , rales, or rhonchi. GASTROINTESTINAL: Abdomen soft, non-tender, nondistended. Normal, active bowel sounds MUSCULOSKELETAL: Extremities without clubbing, cyanosis, or edema. NEURO: Alert & Oriented x4 to person, place, time, situation. Moves all ext x4 Hospital Course Atrial fibrillation with RVR: now HR better controlled. - metoprolol and po cardizme were increased. -Continue patient's Eliquis. -Cardiology follow-up appreciated and cleared for discharge. Lightheadedness: suspect multifactorial secondary to orthostatic hypotension in combination with afib RVR as above -records reviewed, hx of Echo showed mild LVH with normal systolic function EF 55-60% -orthostatic BP positive. Amlodipine discontinued, HCTZ discontinued. Atypical Chest Pain: lasted few seconds, suspect secondary to afib, no hx of CAD. Initial troponin negative and EKG without acute ischemic changes -Ruled out ACS. -monitor on telemetry All other medical conditions stable, continue home medications as appropriate. DVT Prophylaxis: on Eliquis Pt Condition on Discharge: Good Discharge Disposition: Discharge Home Discharge Time: > 30 minutes Discharge Instructions DIET: Follow Instructions for: Heart Healthy Diet Activities you can perform: Regular-No Restrictions Follow up Referrals: Cardiology PCP Follow-up New Medications: Diltiazem CD 24 HR (Cardizem CD 24 HR) 240 Mg Caper 240 MG PO DAILY a-fib #30 Ref 0 CAP Metoprolol Succinate ER 24 HR (Metoprolol Succinate ER 24 HR) 50 Mg Tab 200 MG PO DAILY a-fib Days 30 Ref 0 TAB Continued Medications: Apixaban (Eliquis) 5 Mg Tab 5 MG PO BID Blood Clot Prevention #60 Ref 0 TAB Doxazosin (Doxazosin) 4 Mg Tab 4 MG PO HS #30 Ref 0 TAB Lovastatin (Lovastatin) 40 Mg Tab 40 MG PO DAILY Cholesterol Management #30 Ref 0 TAB Pantoprazole (Pantoprazole) 20 Mg Tab 20 MG PO DAILY Reflux #30 Ref 0 TAB Discontinued Medications: Amlodipine (Amlodipine) 5 Mg Tab 5 MG PO DAILY Blood Pressure Management #30 Ref 0 TAB Benazepril (Benazepril) 20 Mg Tab 20 MG PO BID Blood Pressure Management #60 Ref 0 TAB Hydrochlorothiazide (Hydrochlorothiazide) 25 Mg Tab 25 MG PO DAILY #30 Ref 0 TAB Metoprolol Succinate ER 24 HR (Metoprolol Succinate ER 24 HR) 50 Mg Tab 75 MG PO DAILY #30 Ref 0 TAB Jayla Bland MD Apr 08, 2017 08:09
[2017-04-08] MEDS: METOPROLOL SUCCINATE 50 MG EXTENDED RELEASE TAB PO SCH (08:14)
[2017-04-08] MEDS: APIXABAN 5 MG TABLET PO SCH (08:14)
[2017-04-08] MEDS: DOCUSATE SODIUM 50 MG/SENNA 8.6 MG TAB PO SCH (08:14)
[2017-04-08] MEDS: PRAVASTATIN SOD 40 MG TAB PO SCH (08:14)
== END 2017-04-08 09:32 | disposition home or self-care (01) | DRG 310 ==
LOC: NEPC 11:56 → NEDA 13:42 → HCIN 16:10
PROVIDERS: ADMIT Internal Medicine; ATTEND Internal Medicine
DX: I48.91 Unspecified atrial fibrillation (principal); E87.8 Other disorders of electrolyte and fluid balance, not elsewhere classified; Z79.02 Long term (current) use of antithrombotics/antiplatelets; I10 Essential (primary) hypertension; I95.1 Orthostatic hypotension; Z86.73 Personal history of transient ischemic attack (TIA), and cerebral infarction without residual deficits; N40.0 Benign prostatic hyperplasia without lower urinary tract symptoms; K21.9 Gastro-esophageal reflux disease without esophagitis; R07.89 Other chest pain; E78.5 Hyperlipidemia, unspecified; Z85.820 Personal history of malignant melanoma of skin; Z98.1 Arthrodesis status; Z96.653 Presence of artificial knee joint, bilateral
CPT/HCPCS: 70450; 71010; 76937; 80048; 80061; 81001; 82550; 83690; 83735; 83880; 84132; 84443; 84484; 85025; 85610; 85730; 93005; J7030

== ENCOUNTER 2017-06-16 14:05 | Emergency (ER) | payer MEDICARE, OTHER ==
[~2017-06-16 14:05] MED LIST changes: +APIX5TAB PO; -ASPI81TA45 PO; -BENA20 PO; -CALC600T44 PO; +CARD240C6 PO; -CLOP75 PO; -DOXA1 PO; +DOXA1TAB34 PO; -ECOT81TA2 PO; -FISH1400 PO; -HYDR12.56 PO; +LOVA40TA PO; -LUTE20CA PO; -METO50CR PO; +METO50TA11 PO; -PANT20 PO; +PANT20TA2 PO; -PRAV40 PO; -TAB-TAB PO; -VITA500C18 PO
[2017-06-16 14:08] VITALS: BP 158/8; PULSE 49; RESP 20; TEMP 97.8; O2SAT 97
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
[2017-06-16] MEDS ORDERED: SODIUM CHLORIDE 0.9% FLUSH 10 ML FLUSH IVF PRN (14:45)
[2017-06-16 15:01] LABS: AUTOMATED NEUTROPHIL # 4.7 TH/MM3 (1.8-7.7); BASOPHIL % 0.5 % (0.0-2.0); EOSINOPHIL # 0.1 TH/MM3 (0-0.4); EOSINOPHIL % 1.2 % (0.0-4.0); HEMATOCRIT 42.6 % (39.0-51.0); HEMO FLAGS DIFF FINAL; LYMPH % 20.4 % (9.0-44.0); LYMPHOCYTE # 1.4 TH/MM3 (1.0-4.8); MEAN CELL VOLUME 91.2 FL (80.0-100.0); MEAN CORPUSCULAR HEMOGLOBIN 31.2 PG (27.0-34.0); MEAN CORPUSCULAR HGB CONC 34.3 % (32.0-36.0); MONO % 9.4 % (0.0-8.0); NEUT % 68.5 % (16.0-70.0); PLATELET COUNT 174 TH/MM3 (150-450); RED BLOOD COUNT 4.68 MIL/MM3 (4.50-5.90); RED CELL DISTRIBUTION WIDTH 12.8 % (11.6-17.2); WHITE BLOOD COUNT 6.8 TH/MM3 (4.0-11.0)
[2017-06-16 15:08] LABS: CHLORIDE 104 MEQ/L (98-107); POTASSIUM 3.9 MEQ/L (3.5-5.1); SODIUM (NA) 137 MEQ/L (136-145)
[2017-06-16 15:12] LABS: ANION GAP 7 MEQ/L (5-15); APTT (PATIENT) 29.2 SEC (24.3-30.1); BICARBONATE 26.3 MEQ/L (21.0-32.0); BLOOD UREA NITROGEN 16 MG/DL (7-18); INTERNATIONAL NORMALIZED RATIO 1.1 RATIO; MAGNESIUM 2.2 MG/DL (1.5-2.5); PROTHROMBIN TIME - PATIENT 11.9 SEC (9.8-11.6)
[2017-06-16 15:14] LABS: BLOOD, URINE NEG (NEG); GLUCOSE,URINE NEG (NEG); KETONE, URINE NEG (NEG); NITRITE,URINE NEG (NEG); PH, URINE 5.5 (5.0-8.5)
[2017-06-16 15:15] LABS: GLOMERULAR FILTRATION RATE 76 ML/MIN (>89)
[2017-06-16 15:25] LABS: URINE COLOR YELLOW (YELLW/STRAW)
[2017-06-16 15:26] LABS: SQUAMOUS EPITHELIAL CELL URINE 0-5 /hpf (0-5); WBC, URINE 0-2 /hpf (0-5)
[2017-06-16 15:27] LABS: COMMENT (UR) CULT NOT INDICATED; CULTURE IF INDICATED CULT NOT INDICATED
[2017-06-16 15:29] VITALS: BP_SYST 169; BP_SYST 177; BP_SYST 182; BP_DIAS 74; BP_DIAS 85; RESP 16; RESP 18; O2SAT 98
--- NOTE | 2017-06-16 15:43 | RADRPT ---
EXAM DATE/TIME: 06/16/2017 15:07 [facility] COMPARISON: CT BRAIN W/O CONTRAST, April 04, 2017, 12:40. INDICATIONS : Dizziness. RADIATION DOSE: 60.38 CTDIvol (mGy) MEDICAL HISTORY : Cerebrovascular disease. Cardiovascular disease Hypertension. SURGICAL HISTORY : Appendectomy. Cholecystectomy. ENCOUNTER: Initial ACUITY: 1 day PAIN SCALE: 0/10 LOCATION: cranial TECHNIQUE: Multiple contiguous axial images were obtained of the head. Using automated exposure control and adj ustment of the mA and/or kV according to patient size, radiation dose was kept as low as reasonably a chievable to obtain optimal diagnostic quality images. DICOM format image data is available electro nically for review and comparison. FINDINGS: Noncontrast axial head CT demonstrates the ventricles to be normal in size and configuration with a n ormal sulcal pattern. No acute intracranial hemorrhage, acute cortical infarction, mass or midline sh ift is seen. Posterior fossa structures are unremarkable. Bone windows are unremarkable. CONCLUSION: 1. No evidence of acute intracranial pathology. No masses are identified. Richie Vargas MD on June 16, 2017 at 15:41 Board Certified Radiologist. This report was verified electronically.
--- NOTE | 2017-06-17 14:11 | EKG ---
Date Performed: 06/16/2017 Time Performed: 14:42:57 PTAGE: 82 years EKG: SINUS BRADYCARDIA BORDERLINE ECG PREVIOUS TRACING : 04/04/2017 12.13 Since prior tracing, sinus bradycardia has replaced atrial fibrillation with rapid ventricular response. DOCTOR: Luis M Pollard Interpretating Date/Time 06/17/2017 14:09:48
== END 2017-06-16 17:24 | disposition home or self-care (01) ==
LOC: PHED 14:05
DX: R42 Dizziness and giddiness (principal); I10 Essential (primary) hypertension; K21.9 Gastro-esophageal reflux disease without esophagitis; Z86.73 Personal history of transient ischemic attack (TIA), and cerebral infarction without residual deficits; R94.31 Abnormal electrocardiogram [ECG] [EKG]; N40.0 Benign prostatic hyperplasia without lower urinary tract symptoms; Z79.01 Long term (current) use of anticoagulants
CPT/HCPCS: 70450; 80048; 81001; 83735; 84484; 85025; 85610; 85730; 93005; 99285

== ENCOUNTER 2017-07-13 11:46 | Inpatient (IN) | payer OTHER, MEDICARE ==
[~2017-07-13] VITALS: Ht 182.9 cm; Wt 92.6 kg
[~2017-07-13 11:46] MED LIST changes: +METO1TAB9 PO; -METO50TA11 PO
[2017-07-13 11:50] VITALS: RESP 18; O2SAT 97
[2017-07-13 11:52] VITALS: BP 167/87; PULSE 77; RESP 18; TEMP 98.3; O2SAT 97
[2017-07-13 11:59] VITALS: BP 161/87; PULSE 77; RESP 18; TEMP 98.3; O2SAT 97
[2017-07-13] MEDS ORDERED: ASPIRIN 325 MG TAB PO ONE (12:15)
[2017-07-13] MEDS ORDERED: OMEG300C5 PO (12:28)
[2017-07-13] MEDS ORDERED: TOPR100T PO (12:28)
[2017-07-13] MEDS ORDERED: LUTE20CA PO (12:28)
[2017-07-13] MEDS ORDERED: ACET-822 PO (12:28)
[2017-07-13] MEDS ORDERED: VITA250T3 PO (12:28)
[2017-07-13] MEDS ORDERED: MULTTAB67 PO (12:28)
[2017-07-13] MEDS ORDERED: PRAV40TA PO (12:28)
[2017-07-13] MEDS ORDERED: BENA20TA PO (12:28)
[2017-07-13] MEDS ORDERED: CALC600T5 PO (12:28)
[2017-07-13] MEDS ORDERED: AMLO10 PO (12:32)
[2017-07-13 12:38] LABS: AUTOMATED NEUTROPHIL # 4.4 TH/MM3 (1.8-7.7); BASOPHIL # 0.1 TH/MM3 (0-0.2); BASOPHIL % 0.8 % (0.0-2.0); EOSINOPHIL # 0.2 TH/MM3 (0-0.4); EOSINOPHIL % 2.3 % (0.0-4.0); HEMATOCRIT 43.1 % (39.0-51.0); HEMOGLOBIN 15.1 GM/DL (13.0-17.0); LYMPH % 22.4 % (9.0-44.0); LYMPHOCYTE # 1.6 TH/MM3 (1.0-4.8); MEAN CELL VOLUME 93.2 FL (80.0-100.0); MEAN CORPUSCULAR HEMOGLOBIN 32.6 PG (27.0-34.0); MEAN CORPUSCULAR HGB CONC 34.9 % (32.0-36.0); MEAN PLATELET VOLUME 8.6 FL (7.0-11.0); MONO % 10.5 % (0.0-8.0); MONOCYTE # 0.7 TH/MM3 (0-0.9); PLATELET COUNT 176 TH/MM3 (150-450); RED BLOOD COUNT 4.63 MIL/MM3 (4.50-5.90); RED CELL DISTRIBUTION WIDTH 13.4 % (11.6-17.2); WHITE BLOOD COUNT 6.9 TH/MM3 (4.0-11.0)
--- NOTE | 2017-07-13 12:44 | RADRPT ---
EXAM DATE/TIME: 07/13/2017 12:20 [facility] COMPARISON: CHEST SINGLE AP, November 24, 2014, 16:32. CHEST SINGLE AP, September 23, 2015, 20:07. CHEST SINGLE AP, April 04, 2017, 12:23. INDICATIONS : Short of breath, numbness left face MEDICAL HISTORY : Cerebrovascular disease. Cardiovascular disease. SURGICAL HISTORY : None. ENCOUNTER: Initial ACUITY: 1 day PAIN SCORE: 0/10 LOCATION: Bilateral chest FINDINGS: Portable AP view the chest demonstrates a normal-sized cardiac silhouette with calcification of the a [place]. No effusion, consolidation, or pneumothorax is present. There is a stable 6 mm nodule in the ri t upper lung zone. Its stability since November 2014 is consistent with a benign process. Bones and so ft tissues demonstrate no acute finding. EKG lines overlie the patient. CONCLUSION: No acute cardiopulmonary abnormality is identified. Abhishek Arambula MD on July 13, 2017 at 12:42 Board Certified Radiologist. This report was verified electronically.
[2017-07-13 12:46] LABS: PROTHROMBIN TIME - PATIENT 11.6 SEC (9.8-11.6)
[2017-07-13 12:48] LABS: ALBUMIN 3.6 GM/DL (3.4-5.0); ALKALINE PHOSPHATASE 48 U/L (45-117); ALT (GPT) 22 U/L (12-78); AST (GOT) 27 U/L (15-37); BICARBONATE 26.2 MEQ/L (21.0-32.0); BLOOD UREA NITROGEN 16 MG/DL (7-18); CALCIUM 8.4 MG/DL (8.5-10.1); CHLORIDE 106 MEQ/L (98-107); CREATININE 1.03 MG/DL (0.60-1.30); GLOMERULAR FILTRATION RATE 69 ML/MIN (>89); GLUCOSE,RANDOM 98 MG/DL (74-106); SODIUM (NA) 139 MEQ/L (136-145); TOTAL BILIRUBIN ADULT 0.7 MG/DL (0.2-1.0); TOTAL PROTEIN 7.4 GM/DL (6.4-8.2)
--- NOTE | 2017-07-13 12:56 | RADRPT ---
EXAM DATE/TIME: 07/13/2017 12:20 [facility] COMPARISON: CT BRAIN W/O CONTRAST, June 16, 2017, 15:07. INDICATIONS : Left hand weakness left facial droop RADIATION DOSE: 56.35 CTDIvol (mGy) MEDICAL HISTORY : Cerebrovascular disease. Hypertension. Cardiovascular disease SURGICAL HISTORY : Appendectomy. Cholecystectomy. ENCOUNTER: Initial ACUITY: 1 day PAIN SCALE: 0/10 LOCATION: cranial TECHNIQUE: Multiple contiguous axial images were obtained of the head. Using automated exposure control and adj ustment of the mA and/or kV according to patient size, radiation dose was kept as low as reasonably a chievable to obtain optimal diagnostic quality images. DICOM format image data is available electro nically for review and comparison. FINDINGS: CEREBRUM: There is mild generalized atrophy. Ventricles are normal. There is moderate periventricular white mat ter low-attenuation, stable from the prior study. 2 stable well-defined low-density structures in the right basal ganglia measuring 5 mm each and are characteristic of old lacune's. No midline shift, ma ss lesion, hemorrhage or acute infarction. No extra-axial fluid collections are seen. POSTERIOR FOSSA: The cerebellum and brainstem demonstrate no acute finding. The 4th ventricle is midline. The cerebe llopontine angle is unremarkable. EXTRACRANIAL: There is an 11 mm left maxillary sinus mucous retention cyst. Otherwise, sinuses are clear. SKULL: The calvaria is intact. No evidence of skull fracture. CONCLUSION: 1. Stable noncontrast head CT. No acute intracranial abnormality is identified. 2. Chronic and stable changes include generalized atrophy and chronic white matter changes. Abhishek Arambula MD on July 13, 2017 at 12:46 Board Certified Radiologist. This report was verified electronically.
--- NOTE | 2017-07-13 13:24 | PD ---
HPI Chief Complaint: Neuro Symptoms/ Deficits Time Seen by Provider: 11:58 Travel History International Travel<30 days: No Contact w/Intl Traveler<30days: No Traveled to known affect area: No History of Present Illness HPI 82-year-old male complains of left-sided facial numbness and weakness in left hand numbness and weakness. Patient states that the symptoms started about 1050 this morning. Patient started having left-sided facial numbness of the left cheek area and left hand numbness and weakness. Patient states that the symptoms lasted about 15 minutes and since resolved completely. EMS was called. Patient was brought to the ED for evaluation. Patient has history of TIA in the past. Patient also has history of atrial fibrillation and on Eliquis . Patient denies any headache. Patient denies any visual change. Patient denies any chest pain or shortness of breath. Patient denies abdominal pain. Patient has history of hypertension, GERD, migraine. PFSH Past Medical History Hx Anticoagulant Therapy: Yes Arthritis: Yes Asthma: No Atrial Fibrillation: Yes Autoimmune Disease: No Blood Disorders: No Anxiety: No Depression: No Heart Rhythm Problems: Yes (A-FIB) Cancer: Yes (Melenoma behind right ear) Cardiovascular Problems: Yes (A-FIB, HTN) High Cholesterol: No Chemotherapy: No Chest Pain: No Congestive Heart Failure: No COPD: No Cerebrovascular Accident: Yes (TIA 16 months ago) Diabetes: No Diminished Hearing: No Endocrine: No Gastrointestinal Disorders: Yes (ACID REFLUX, "SENSITIVE STOMACH") GERD: No Glaucoma: No Genitourinary: Yes Headaches: No Hepatitis: No Hiatal Hernia: No Hypertension: Yes Immune Disorder: No Implanted Vascular Access Dvce: Yes Kidney Stones: Yes Musculoskeletal: Yes Neurologic: Yes (Cervical Disc buldges) Psychiatric: No Reproductive: No Respiratory: No Migraines: Yes Myocardial Infarction: No Radiation Therapy: No Renal Failure: No Seizures: No Sickle Cell Disease: No Sleep Apnea: No Thyroid Disease: No Ulcer: No Past Surgical History Abdominal Surgery: Yes (Cholecystectomy, Kidney stone removal, Appendectomy) AICD: No Appendectomy: Yes Arteriovenous Shunt: No Cardiac Surgery: No Cholecystectomy: Yes Ear Surgery: No Endocrine Surgery: No Eye Surgery: No Genitourinary Surgery: No Gynecologic Surgery: No Insulin Pump: No Joint Replacement: Yes (Bilateral knee replacement) Neurologic Surgery: Yes (C3-C4 Discectomy) Oral Surgery: No Pacemaker: No Thoracic Surgery: No Other Surgery: Yes (APPENDECTOMY,RIGHT KNEE REPLACEMENT,KIDNEY STONE SURGERY, LEFT FINGER SURGER) Social History Alcohol Use: No Tobacco Use: No Substance Use: No Allergies-Medications (Allergen,Severity, Reaction): Coded Allergies: No Known Allergies (Verified Adverse Reaction, Unknown, 07/13/17) Reported Meds & Prescriptions Reported Meds & Active Scripts Active Cardizem CD 24 HR (Diltiazem CD 24 HR) 240 Mg Caper 240 Mg PO DAILY Reported Norvasc (Amlodipine Besylate) 10 Mg Tab 10 Mg PO DAILY Lutein 20 Mg Cap 20 Mg PO DAILY Vitamin C (Ascorbic Acid) 250 Mg Tab 500 Mg PO DAILY Fish Oil ([place]-3 Fatty Acids) 300 Mg Capsule 600 Mg PO DAILY Calcium (Calcium Carbonate) 600 Mg Calcium (1500 Mg) Tab 1,200 Mg PO BID Multiple Vitamin 1 Tab 1 Tab PO DAILY Tylenol Extra Strength (Acetaminophen) 500 Mg Tablet 500 Mg PO Q4HR PRN Pravachol (Pravastatin) 40 Mg Tab 40 Mg PO DAILY Benazepril (Benazepril HCl) 20 Mg Tab 20 Mg PO DAILY Toprol XL (Metoprolol Succinate) 100 Mg Tab 200 Mg PO DAILY Doxazosin (Doxazosin Mesylate) 4 Mg Tab 2 Mg PO HS Eliquis (Apixaban) 5 Mg Tab 5 Mg PO BID Pantoprazole (Pantoprazole Sodium) 20 Mg Tab 20 Mg PO DAILY Review of Systems General / Constitutional: No: Fever Eyes: No: Visual changes HENT: No: Headaches Cardiovascular: No: Chest Pain or Discomfort Respiratory: No: Shortness of Breath Gastrointestinal: No: Abdominal Pain Genitourinary: No: Dysuria Musculoskeletal: No: Pain Skin: No Rash Neurologic: Positive: Weakness, Paresthesia Psychiatric: No: Depression Endocrine: No: Polydipsia Hematologic/Lymphatic: No: Easy Bruising Physical Exam Narrative GENERAL: Well-nourished, well-developed patient. SKIN: Focused skin assessment warm/dry. HEAD: Normocephalic. EYES: No scleral icterus. No injection or drainage. NECK: Supple, trachea midline. No JVD or lymphadenopathy. CARDIOVASCULAR: Regular rate and rhythm without murmurs, gallops, or rubs. RESPIRATORY: Breath sounds equal bilaterally. No accessory muscle use. GASTROINTESTINAL: Abdomen soft, non-tender, nondistended. MUSCULOSKELETAL: No cyanosis, or edema. BACK: Nontender without obvious deformity. No CVA tenderness. Neurologic exam: Patient's awake and alert oriented 3. No obvious focal neurological deficit. Data Data Last Documented VS Vital Signs Date Time Temp Pulse Resp B/P (MAP) Pulse Ox O2 Delivery O2 Flow Rate FiO2 07/13/17 11:59 98.3 77 18 161/87 (111) 97 Room Air Orders Orders Electrocardiogram (07/13/17 11:58) Complete Blood Count With Diff (07/13/17 11:58) Comprehensive Metabolic Panel (07/13/17 11:58) Prothrombin Time / Inr (Pt) (07/13/17 11:58) Act Partial Throm Time (Ptt) (07/13/17 11:58) Chest, Single Ap (07/13/17 11:58) Ct Brain W/O Iv Contrast(Rout) (07/13/17 11:58) Iv Access Insert/Monitor (07/13/17 11:58) Ecg Monitoring (07/13/17 11:58) Oxygen Administration (07/13/17 11:58) Oximetry (07/13/17 11:58) Labs MDM Medical Decision Making Medical Screen Exam Complete: Yes Emergency Medical Condition: Yes Interpretation(s) Last Impressions Head CT 07/13/17 115 Signed Impressions: Service Date/Time: Thursday, July 13, 2017 12:20 - CONCLUSION: 1. Stable noncontrast head CT. No acute intracranial abnormality is identified. 2. Chronic and stable changes include generalized atrophy and chronic white matter changes. Abhishek Arambula MD Chest X-Ray 07/13/171157 Signed Impressions: Service Date/Time: Thursday, July 13, 2017 12:20 - CONCLUSION: No acute cardiopulmonary abnormality is identified. Abhishek Arambula MD 1325 PM. CBC within normal limit. CMP within normal limit. Differential Diagnosis Differential diagnosis including TIA, CVA. Narrative Course 82-year-old male with transient numbness and weakness of the left side of face and left hand. Symptoms started this morning and lasted about 15 minutes. Symptoms has resolved completely. Patient has history of TIA, atrial fibrillation and on Eliquis . Patient will be admitted to medical service with consultation to neurologist Dr. Chu. Dr. Chu saw patient during past admission for TIA. Diagnosis Primary Impression: TIA (transient ischemic attack) Qualified Codes: G45.9 - Transient cerebral ischemic attack, unspecified Admitting Information Admitting Physician Requests: Observation Patient Instructions: Narcotic given in the ED Raleigh Ornelas MD Jul 13, 2017 13:24
[2017-07-13] MEDS ORDERED: SODIUM CHLORIDE 0.9% FLUSH 10 ML FLUSH IV FLUSH PRN (14:30)
[2017-07-13] MEDS ORDERED: GADODIAMIDE PF 287 MG/ML 20 ML VIAL (for RAD MRI) IVCONTRAST ONE (17:00)
[2017-07-13 17:05] LABS: HEMOGLOBIN A1C 5.4 % (4.3-6.0)
[2017-07-13 17:52] VITALS: BP 159/79; PULSE 71; RESP 20; TEMP 96.9; O2SAT 95
--- NOTE | 2017-07-13 17:53 | RADRPT ---
EXAM DATE/TIME: 07/13/2017 16:56 [facility] COMPARISON: MRI BRAIN W/O CONTRAST, September 24, 2015, 9:02. INDICATIONS : Left sided weakness. MEDICAL HISTORY : Melanoma. SURGICAL HISTORY : Appendectomy. Cholecystectomy. Fusion, cervical. ENCOUNTER: Initial ACUITY: 1 day PAIN SCORE: 0/10 LOCATION: head TECHNIQUE: Multiplanar, multisequence MRI of the brain was performed without contrast. FINDINGS: MRI of the brain is performed in sagittal, axial and coronal planes. The craniocervical junction and midline structures are unremarkable. Diffusion weighted images demonstrate no abnormality. There is n o evidence of acute cortical infarction, acute hemorrhage, mass effect or midline shift is seen. Ther e is periventricular hyperintensity on the T2 weighted images consistent with small vessel vascular d isease significantly more than expected in a patient of this age. There is benign-appearing mucosal d isease in the maxillary antra bilaterally. Posterior fossa structures are unremarkable. CONCLUSION: 1. No evidence of acute intracranial pathology. Chronic ischemic changes as above. Richie Vargas MD on July 13, 2017 at 17:50 Board Certified Radiologist. This report was verified electronically.
--- NOTE | 2017-07-13 17:55 | RADRPT ---
EXAM DATE/TIME: 07/13/2017 16:56 [facility] COMPARISON: MRA BRAIN W/O CONTRAST, September 24, 2015, 9:02. INDICATIONS : Left sided weakness. MEDICAL HISTORY : Melanoma. SURGICAL HISTORY : Appendectomy. Cholecystectomy. Fusion, cervical. ENCOUNTER: Initial ACUITY: 1 day PAIN SCORE: 0/10 LOCATION: head Please note a normal MRA of the brain does not entirely exclude the possibility of a small aneurysm, nor the possibility of distal intracranial vessel disease. TECHNIQUE: 3D time of flight MRA was performed. Source images, multiplanar STS MIP, and 3D volume MIP reconstru ctions were reviewed. FINDINGS: There is excellent visualization of the major intracranial arteries out to the second-order branch ve ssels. There is no evidence for aneurysm, vessel truncation or stenosis, and no evidence for vascula r malformation. There is a hypoplastic A1 segment on the right. CONCLUSION: 1. Unremarkable MR angiography of the brain. Richie Vargas MD on July 13, 2017 at 17:52 Board Certified Radiologist. This report was verified electronically.
--- NOTE | 2017-07-13 17:58 | ECHRPT ---
Indication: Transient cerebral ischemic attack, unspecified CONCLUSIONS The transthoracic study is normal by two-dimensional, color flow imaging and Doppler interrogation. BP: / HR: Rhythm: MEASUREMENTS (Male / Female) Normal Values Technical Quality:Good 2D ECHO LV Diastolic Diameter PLAX 4.8 cm 4.2 - 5.9 / 3.9 - 5.3 cm LV Systolic Diameter PLAX 3.6 cm IVS Diastolic Thickness 1.1 cm 0.6 - 1.0 / 0.6 - 0.9 cm LVPW Diastolic Thickness 1.2 cm 0.6 - 1.0 / 0.6 - 0.9 cm LV Relative Wall Thickness 0.5 RV Internal Dim ED PLAX 2.7 cm M-MODE Aortic Root Diameter MM 3.8 cm LA Systolic Diameter MM 3.5 cm LA Ao Ratio MM 0.9 AV Cusp Separation MM 1.9 cm FINDINGS LEFT VENTRICLE Normal left ventricular size and wall thickness. The left ventricular systolic function is normal wi th an estimated ejection fraction in the range of 60-65%. Left ventricular diastolic function parameters a re normal. RIGHT VENTRICLE Normal right ventricular size and systolic function. LEFT ATRIUM The left atrial size is normal. RIGHT ATRIUM The right atrial size is normal. ATRIAL SEPTUM Normal atrial septal thickness without atrial level shunting by limited color doppler interrogation. AORTA The aortic root and proximal ascending aorta are not well visualized. MITRAL VALVE Structurally normal mitral valve. No mitral valve stenosis or regurgitation. AORTIC VALVE Trileaflet aortic valve. No aortic valve stenosis or regurgitation. TRICUSPID VALVE Structurally normal tricuspid valve. No tricuspid valve stenosis or regurgitation. PULMONARY VALVE The pulmonary valve is not well visualized. VESSELS The inferior vena cava is normal in size. PERICARDIUM There is no pericardial effusion. Ashley De Santiago MD, FACC (Electronically Signed) Final Date:13 July 2017 17:57
--- NOTE | 2017-07-13 18:11 | RADRPT ---
EXAM DATE/TIME: 07/13/2017 14:57 [facility] COMPARISON: US CAROTID ARTERIES, September 24, 2015, 9:26. INDICATIONS : Cerebrovascular accident. MEDICAL HISTORY : Hypertension. CVA. A-fib. Renal disease. Kidney stones. Arthritis. Melanoma. SURGICAL HISTORY : Appendectomy. Cholecystectomy. Bilateral knee replacement. ENCOUNTER: Initial ACUITY: 1 day PAIN SCORE: 1/10 LOCATION: Bilateral neck PEAK SYSTOLIC VELOCITIES (cm/sec): ICA/CCA RATIO: Right: 0.8 Left: 0.8 ICA: Right: 65 Left: 53 CCA: Right: 79 Left: 70 ECA: Right: 135 Left: 48 VERTEBRAL: Right: 54 antegrade Left: 43 antegrade Elevated flow velocities and ICA/CCA ratios have been found to correlate with increased degrees of vessel stenosis, calculated as percentage of diameter relative to a normal segment of distal ICA/CCA FINDINGS: RIGHT CAROTID: No significant stenosis is visualized. Mild calcific plaque is present. The waveforms are within nor mal limits. LEFT CAROTID: No significant stenosis is visualized. Mild calcific plaque is present. The waveforms are within nor mal limits. VERTEBRAL ARTERIES: Antegrade flow is seen in both vertebral arteries. MISCELLANEOUS: None. CONCLUSION: Mild bilateral plaquing with no evidence of a hemodynamically significant lesion. Dl Dominguez MD on July 13, 2017 at 18:09 Board Certified Radiologist. This report was verified electronically.
--- NOTE | 2017-07-13 18:27 | HHI.HP ---
[facility] Abiel Xie MD Admission Diagnosis acute CVA Diagnoses: (1) TIA (transient ischemic attack) Diagnosis: Principal Chief Complaint: Left-sided numbness Travel History International Travel<30 Days: No Contact w/Intl Traveler <30 Da: No Traveled to Known Affected Are: No History of Present Illness Patient is a very pleasant 82-year-old male with history of TIA in September 2015 , atrial fibrillation, hypertension, hyperlipidemia who woke up this morning with sudden onset of left-sided numbness involving the cheek the bowel in the left hand mainly involving the 3 first 3 fingers. Patient also noted a facial droop which was confirmed by his . Patient had similar experiences in the past with this and called 911. Patient states that within an hour all symptoms resolved. Patient is being followed closely by her primary care physician. On review of her medication his medications and his Cardizem CD 240 was discontinued about 2 weeks ago. His Lopressor was decreased from 200 200 mg daily and amlodipine was added. patient is also on Eliquis twice a day and is very compliant. Patient also states that he takes doxazosin 4 mg half tab at night for frequency which he said that really doesn't help much and states that he would want to get off it. Patient now admitted for further evaluation. Review of Systems Constitutional: DENIES: Fever, Weight loss, Chills, Change in appetite Eyes: DENIES: Blurred vision, Double Vision Ears, nose, mouth, throat: DENIES: Tinnitus, Ear Pain, Epistaxis, Odynophagia Respiratory: DENIES: Cough, Hemoptysis, Sputum production, Shortness of breath Cardiovascular: DENIES: Chest pain, Palpitations, Dyspnea on Exertion, Lower Extremity Edema, Orthopnea Gastrointestinal: DENIES: Black stools, Bloody stools, Difficulty Swallowing, Anorexia Genitourinary: DENIES: Urgency, Hematuria, Penile Discharge Musculoskeletal: DENIES: Joint pain, Stiffness Integumentary: DENIES: Pruritus Hematologic/lymphatic: DENIES: Bruising Immunologic/allergic: DENIES: Urticaria Neurologic: DENIES: Headache, Speech Problems, Tremor Psychiatric: DENIES: Suicidal Ideation, Homicidal Ideation Past Family Social History Past Medical History Hypertension Hyperlipidemia GERD Urinary frequency TIA in March 2016 Hyperlipidemia Past Surgical History Appendectomy Melanoma removal Kidney stone removal Gallbladder surgery Bilateral knee replacement Next surgery C3-C4 Reported Medications Lopressor 100 mg daily amlodipine 10 mg daily Been asked up to 20 mg daily Prilosec 20 mg daily Pravastatin 40 mg daily Increase 5 mg twice a day Potassium 4 mg half tab bedtime Multivitamins, calcium [place]-3(supplements Allergies: Coded Allergies: No Known Allergies (Verified Allergy, Unknown, 07/13/17) Family History Positive for lung cancer =mother and a sister Social History Patient never smoked never drink alcohol no history of substance abuse Physical Exam Vital Signs Vital Signs Date Time Temp Pulse Resp B/P (MAP) Pulse Ox O2 Delivery O2 Flow Rate FiO2 07/13/17 17:52 96.9 71 20 159/79 (105) 95 07/13/17 16:36 07/13/17 11:59 98.3 77 18 161/87 (111) 97 Room Air 07/13/17 11:59 77 18 97 Room Air 07/13/17 11:52 98.3 77 18 167/87 (113) 97 07/13/17 11:50 97 Room Air 07/13/17 11:50 18 97 Room Air Physical Exam GENERAL: This is a well-nourished, well-developed patient, in no apparent distress. SKIN: No rashes, ecchymoses or lesions. Cool and dry. HEAD: Atraumatic. Normocephalic. No temporal or scalp tenderness. EYES: Pupils equal round and reactive. Extraocular motions intact. No scleral icterus. No injection or drainage. ENT: Nose without bleeding, purulent drainage or septal hematoma. Throat without erythema, tonsillar hypertrophy or exudate. Uvula midline. Airway patent. NECK: Trachea midline. No JVD or lymphadenopathy. Supple, nontender, no meningeal signs. No bruit CARDIOVASCULAR: Regular rate and rhythm without murmurs, gallops, or rubs. RESPIRATORY: Clear to auscultation. Breath sounds equal bilaterally. No wheezes , rales, or rhonchi. GASTROINTESTINAL: Abdomen soft, non-tender, nondistended. No hepato-splenomegaly , or palpable masses. No guarding. MUSCULOSKELETAL: Extremities without clubbing, cyanosis, or edema. No joint tenderness, effusion, or edema noted. No calf tenderness. Negative Homans sign bilaterally. NEUROLOGICAL: Awake and alert. Cranial nerves II through XII intact. Motor and sensory grossly within normal limits. Five out of 5 muscle strength in all muscle groups. Normal speech. Gait steady Laboratory Laboratory Tests Test 07/13/17 12:07 White Blood Count 6.9 Red Blood Count 4.63 Hemoglobin 15.1 Hematocrit 43.1 Mean Corpuscular Volume 93.2 Mean Corpuscular Hemoglobin 32.6 Mean Corpuscular Hemoglobin Concent 34.9 Red Cell Distribution Width 13.4 Platelet Count 176 Mean Platelet Volume 8.6 Neutrophils (%) (Auto) 64.0 Lymphocytes (%) (Auto) 22.4 Monocytes (%) (Auto) 10.5 Eosinophils (%) (Auto) 2.3 Basophils (%) (Auto) 0.8 Neutrophils # (Auto) 4.4 Lymphocytes # (Auto) 1.6 Monocytes # (Auto) 0.7 Eosinophils # (Auto) 0.2 Basophils # (Auto) 0.1 CBC Comment DIFF FINAL Differential Comment Prothrombin Time 11.6 Prothromb Time International Ratio 1.0 Activated Partial Thromboplast Time 29.3 Blood Urea Nitrogen 16 Creatinine 1.03 Random Glucose 98 Total Protein 7.4 Albumin 3.6 Calcium Level 8.4 Alkaline Phosphatase 48 Aspartate Amino Transf (AST/SGOT) 27 Alanine Aminotransferase (ALT/SGPT) 22 Total Bilirubin 0.7 Sodium Level 139 Potassium Level 4.1 Chloride Level 106 Carbon Dioxide Level 26.2 Anion Gap 7 Estimat Glomerular Filtration Rate 69 Hemoglobin A1c 5.4 Result Diagram: 07/13/17 1207 07/13/17 1207 Imaging Last Impressions Head Magnetic Resonance Angiography 07/13/171325 Signed Impressions: Service Date/Time: Thursday, July 13, 2017 16:56 - CONCLUSION: 1. Unremarkable MR angiography of the brain. Richie Vargas MD Brain MRI 07/13/171325 Signed Impressions: Service Date/Time: Thursday, July 13, 2017 16:56 - CONCLUSION: 1. No evidence of acute intracranial pathology. Chronic ischemic changes as above. Richie Vargas MD Head CT 07/13/17 1158 Signed Impressions: Service Date/Time: Thursday, July 13, 2017 12:20 - CONCLUSION: 1. Stable noncontrast head CT. No acute intracranial abnormality is identified. 2. Chronic and stable changes include generalized atrophy and chronic white matter changes. Abhishek Arambula MD Chest X-Ray 07/13/17 1158 Signed Impressions: Service Date/Time: Thursday, July 13, 2017 12:20 - CONCLUSION: No acute cardiopulmonary abnormality is identified. Abhishek Arambula MD Carotid Artery Ultrasound 07/13/17 0000 Signed Impressions: Service Date/Time: Thursday, July 13, 2017 14:57 - CONCLUSION: Mild bilateral plaquing with no evidence of a hemodynamically significant lesion. Dl Dominguez MD Capjamshid VTE Risk Assessment Caprini VTE Risk Assessment: No/Low Risk (score <= 1) Caprini Risk Assessment Model Point Value = 1 Point Value = 2 Point Value = 3 Point Value = 5 Age 41-60 Minor surgery BMI > 25 kg/m2 Swollen legs Varicose veins or History of unexplained or recurrent spontaneous Oral contraceptives or hormone replacement Sepsis (< 1 month) Serious lung disease, including pneumonia (< 1 month) Abnormal pulmonary function Acute myocardial infarction Congestive heart failure (< 1 month) History of inflammatory bowel disease Medical patient at bed rest Age 61-74 Arthroscopic surgery Major open surgery (> 45 min) Laparoscopic surgery (> 45 min) Malignancy Confined to bed (> 72 hours) Immobilizing plaster cast Central venous access Age >= 75 History of VTE Family history of VTE Factor V Leiden Prothrombin [id number] Lupus anticoagulant Anticardiolipin antibodies Elevated serum homocysteine Heparin-induced thrombocytopenia Other congenital or acquired thrombophilia Stroke (< 1 month) Elective arthroplasty Hip, pelvis, or leg fracture Acute spinal cord injury (< 1 month) Prophylaxis Regimen Total Risk Factor Score Risk Level Prophylaxis Regimen 0-1 Low Early ambulation 2 Moderate Order ONE of the following: *Sequential Compression Device (SCD) *Heparin 5000 units SQ BID 3-4 Higher Order ONE of the following medications: *Heparin 5000 units SQ TID *Enoxaparin/Lovenox 40 mg SQ daily (WT < 150 kg, CrCl > 30 mL/min) *Enoxaparin/Lovenox 30 mg SQ daily (WT < 150 kg, CrCl > 10-29 mL/min) *Enoxaparin/Lovenox 30 mg SQ BID (WT < 150 kg, CrCl > 30 mL/min) AND/OR *Sequential Compression Device (SCD) 5 or more Highest Order ONE of the following medications: *Heparin 5000 units SQ TID (Preferred with Epidurals) *Enoxaparin/Lovenox 40 mg SQ daily (WT < 150 kg, CrCl > 30 mL/min) *Enoxaparin/Lovenox 30 mg SQ daily (WT < 150 kg, CrCl > 10-29 mL/min) *Enoxaparin/Lovenox 30 mg SQ BID (WT < 150 kg, CrCl > 30 mL/min) AND *Sequential Compression Device (SCD) Assessment and Plan Assessment and Plan Patient is a 82-year-old right handed male who presented with numbness on the left side of the face wrist symptoms really resolved within an hour with him with multiple risk factors with history of previous TIA in September 2014 TIA. Neurologically stable. We'll continue on Eliquis 5 mg twice a day check an echo carotid ultrasound placed on telemetry Neurology consult. Check 2-D echo and carotid ultrasound. CT and MRI of the head reviewed negative PTOT consult in a.m. Neuro vital signs protocol History of hypertension. History of atrial fibrillation in sinus rhythm Will continue on Lopressor change dosing to 50 mg twice a day Continue amlodipine 10 mg by mouth daily Continue Pentasa pill 20 mg daily History of GERD continue Prilosec 20 mg daily History of hyperlipidemia continue pravastatin 40 mg at bedtime DVT prophylaxis- patient on eliquis Possible discharge in am if stable Problem Qualifiers (1) TIA (transient ischemic attack): Qualified Codes: G45.9 - Transient cerebral ischemic attack, unspecified Laney Gould MD Jul 13, 2017 18:27
--- NOTE | 2017-07-13 18:27 | RADRPT ---
EXAM DATE/TIME: 07/13/2017 16:56 [facility] COMPARISON: CTA CAROTID ARTERIES W 3D RECON, September 24, 2015, 21:29. MRA BRAIN W/O CONTRAST, July 13, 2017, 16:56. INDICATIONS : Stroke. Left sided facial numbness and droop. CONTRAST: 20 cc Omniscan (gadodiamide) IV MEDICAL HISTORY : Melanoma. SURGICAL HISTORY : Appendectomy. Cholecystectomy. Fusion, cervical. ENCOUNTER: Initial ACUITY: 1 day PAIN SCORE: 0/10 LOCATION: neck Percent stenosis is calculated using the diameter of the stenotic region over the diameter of the nor mal distal internal carotid artery. TECHNIQUE: Bolus infused MRA of the extracranial circulation was performed using a neurovascular coil. Post pro cessing was performed including rotating subvolume maximum intensity projections of each carotid saad ry, rotating full volume maximum intensity projections of both carotid arteries, sagittal and coronal sliding thin slab reformations of each carotid artery, and left oblique sliding thin slab reformatio n through the aortic arch to include the origin of the arch branch vessels. FINDINGS: AORTIC ARCH: There is a three vessel origin of the great vessels from the aorta. No evidence of ostial narrowing. RIGHT CAROTID: The common carotid artery is intact with mild plaquing again noted in the bifurcation and proximal in ternal carotid artery. The carotid bulb has a normal configuration without ulceration or narrowing. The internal carotid artery lumen is smooth without stenosis. The external carotid artery is intact. LEFT CAROTID: The common carotid artery is intact with mild plaquing again noted in the bifurcation and proximal in ternal carotid artery. The carotid bulb has a normal configuration without ulceration or narrowing. The internal carotid artery lumen is smooth without stenosis. The external carotid artery is intact. VERTEBRALS: The left vertebral artery remains unremarkable. The right vertebral artery again demonstrates areas o f plaque and mild stenosis. CONCLUSION: 1. Mild plaque in the common carotid arteries and proximal internal carotid arteries with no signific ant stenosis. 2. Plaque and mild stenosis in the right vertebral artery without significant change. Dl Dominguez MD on July 13, 2017 at 18:21 Board Certified Radiologist. This report was verified electronically.
[2017-07-13] MEDS ORDERED: ACETAMINOPHEN 500 MG CPLT PO PRN (18:30)
[2017-07-13] MEDS ORDERED: cloNIDine HCL 0.1 MG TAB PO PRN (19:00)
[2017-07-13] MEDS ORDERED: CALCIUM CARBONATE 1200 MG PO SCH (21:00)
[2017-07-13] MEDS: CALCIUM CARBONATE 1.25 GM (CA 500 MG) TAB PO SCH (21:02)
[2017-07-13] MEDS: APIXABAN 5 MG TABLET PO SCH (21:02)
[2017-07-13 21:16] VITALS: BP 166/80; PULSE 63; RESP 20; TEMP 97.5; O2SAT 95
--- NOTE | 2017-07-13 21:16 | EKG ---
Date Performed: 07/13/2017 Time Performed: 12:57:05 PTAGE: 82 years EKG: Sinus rhythm NONSPECIFIC ANTERIOR ST ELEVATION NONSPECIFIC T-WAVE ABNORMALITY BORDERLINE ECG PREVIOUS TRACING : 06/16/2017 14.42 Compared to prior tracing no significant change DOCTOR: Margot Archibald Interpretating Date/Time 07/13/2017 21:14:42
[2017-07-13] MEDS: SODIUM CHLORIDE 0.9% FLUSH 10 ML FLUSH IV FLUSH SCH (21:23)
[2017-07-14] VITALS (12 sets, daily range): BP systolic 116–148; BP diastolic 67–97; PULSE 81–154; RESP 16–24; TEMP 97.8–98.8; O2SAT 94–97
[2017-07-14] MEDS: SODIUM CHLOR 0.9% 1000 ML INJ 1,000 ML IV SCH (00:17)
[2017-07-14] MEDS ORDERED: METOPROLOL TARTRATE 50 MG TAB PO ONE (02:45)
[2017-07-14] MEDS ORDERED: METOPROLOL TARTRATE 25 MG TAB PO ONE ×2 (05:00→10:45)
[2017-07-14] MEDS: ASCORBIC ACID 500 MG TAB PO SCH (08:03)
[2017-07-14] MEDS: PRAVASTATIN SOD 40 MG TAB PO SCH (08:04)
[2017-07-14] MEDS: CALCIUM CARBONATE 1.25 GM (CA 500 MG) TAB PO SCH ×2 (08:04→22:20)
[2017-07-14] MEDS: MULTIVITAMIN TAB PO SCH (08:04)
[2017-07-14] MEDS: APIXABAN 5 MG TABLET PO SCH ×2 (08:04→21:00)
[2017-07-14] MEDS: PANTOPRAZOLE SOD 20 MG DELAYED RELEASE TAB PO SCH (08:04)
[2017-07-14] MEDS: LISINOPRIL 20 MG TAB PO SCH (08:04)
[2017-07-14] MEDS: SODIUM CHLORIDE 0.9% FLUSH 10 ML FLUSH IV FLUSH SCH ×2 (08:04→22:49)
[2017-07-14] MEDS ORDERED: OMEGA PO SCH (09:00)
[2017-07-14] MEDS ORDERED: NON-FORMULARY DRUG (Multiple Vitamin 1 TAB) PO SCH (09:00)
[2017-07-14] MEDS ORDERED: NON-FORMULARY DRUG (Ascorbic Acid (Vitamin C) 500 MG) PO SCH (09:00)
[2017-07-14] MEDS ORDERED: NON-FORMULARY DRUG (Lutein 20 MG) PO SCH (09:00)
[2017-07-14] MEDS ORDERED: FATTY ACIDS PO SCH (09:00)
[2017-07-14] MEDS ORDERED: METOPROLOL TARTRATE 50 MG TAB PO SCH (09:00)
[2017-07-14 09:36] LABS: BASOPHIL % 0.3 % (0.0-2.0); EOSINOPHIL # 0.1 TH/MM3 (0-0.4); EOSINOPHIL % 1.6 % (0.0-4.0); HEMATOCRIT 45.3 % (39.0-51.0); HEMOGLOBIN 15.5 GM/DL (13.0-17.0); LYMPH % 16.2 % (9.0-44.0); LYMPHOCYTE # 1.3 TH/MM3 (1.0-4.8); MEAN CELL VOLUME 94.3 FL (80.0-100.0); MEAN CORPUSCULAR HEMOGLOBIN 32.2 PG (27.0-34.0); MEAN CORPUSCULAR HGB CONC 34.1 % (32.0-36.0); MEAN PLATELET VOLUME 8.9 FL (7.0-11.0); MONO % 8.8 % (0.0-8.0); MONOCYTE # 0.7 TH/MM3 (0-0.9); NEUT % 73.1 % (16.0-70.0); PLATELET COUNT 178 TH/MM3 (150-450); RED CELL DISTRIBUTION WIDTH 13.8 % (11.6-17.2); WHITE BLOOD COUNT 8.2 TH/MM3 (4.0-11.0)
[2017-07-14 10:07] LABS: CHOLESTEROL/ HDL RATIO 2.23 RATIO; HDL CHOLESTEROL 49.3 MG/DL (40.0-60.0)
[2017-07-14 10:25] LABS: BICARBONATE 23.5 MEQ/L (21.0-32.0); CALCIUM 8.8 MG/DL (8.5-10.1); CREATININE 0.78 MG/DL (0.60-1.30); MAGNESIUM 1.9 MG/DL (1.5-2.5)
[2017-07-14] MEDS ORDERED: DILTIAZEM HCL 25 MG/5 ML VIAL IV ONE (12:30)
--- NOTE | 2017-07-14 14:14 | HHI.PR ---
Subjective Remarks TIA. Patient's heart rate has been elevated. He has history of A. fib. Dr. Tirado is his director regulatory compliance. He denies chest pain or dyspnea. His neurologic symptoms have resolved. Objective Vitals Vital Signs Date Time Temp Pulse Resp B/P (MAP) Pulse Ox O2 Delivery O2 Flow Rate FiO2 07/14/17 12:27 98.8 105 18 116/80 (92) 94 07/14/17 08:21 98.6 81 18 141/76 (97) 95 07/14/17 06:14 97.8 121 24 136/92 (107) 96 07/14/17 05:00 98.1 117 20 119/84 (96) 94 07/14/17 03:22 121 07/14/17 02:32 98.0 117 20 148/97 (114) 96 07/14/17 02:17 149 07/14/17 00:26 98.8 117 20 146/84 (104) 95 07/13/17 21:16 97.5 63 20 166/80 (108) 95 07/13/17 17:52 96.9 71 20 159/79 (105) 95 07/13/17 16:36 I/O 07/13/17 07/13/17 07/13/17 07/14/17 07/14/17 07/14/17 07:00 15:00 23:00 07:00 15:00 23:00 Output Total 400 ml Balance -400 ml Output Urine Total 400 ml # Voids 1 Result Diagram: 07/14/17 0842 07/14/17 0842 Imaging Last Impressions Neck Magnetic Resonance Angiography 07/13/171325 Signed Impressions: Service Date/Time: Thursday, July 13, 2017 16:56 - CONCLUSION: 1. Mild plaque in the common carotid arteries and proximal internal carotid arteries with no significant stenosis. 2. Plaque and mild stenosis in the right vertebral artery without significant change. Dl Dominguez MD Head Magnetic Resonance Angiography 07/13/171325 Signed Impressions: Service Date/Time: Thursday, July 13, 2017 16:56 - CONCLUSION: 1. Unremarkable MR angiography of the brain. Richie Vargas MD Brain MRI 07/13/171325 Signed Impressions: Service Date/Time: Thursday, July 13, 2017 16:56 - CONCLUSION: 1. No evidence of acute intracranial pathology. Chronic ischemic changes as above. Richie Vargas MD Head CT 07/13/17 1158 Signed Impressions: Service Date/Time: Thursday, July 13, 2017 12:20 - CONCLUSION: 1. Stable noncontrast head CT. No acute intracranial abnormality is identified. 2. Chronic and stable changes include generalized atrophy and chronic white matter changes. Abhishek Arambula MD Chest X-Ray 07/13/17 1158 Signed Impressions: Service Date/Time: Thursday, July 13, 2017 12:20 - CONCLUSION: No acute cardiopulmonary abnormality is identified. Abhishek Arambula MD Carotid Artery Ultrasound 07/13/17 0000 Signed Impressions: Service Date/Time: Thursday, July 13, 2017 14:57 - CONCLUSION: Mild bilateral plaquing with no evidence of a hemodynamically significant lesion. Dl Dominguez MD Objective Remarks General: Elderly male in no acute distress. Heart: Tachycardic, irregular. Lungs: Clear to auscultation bilaterally. No wheezes, rales, or rhonchi. Breathing is nonlabored. Abdomen: Soft, nontender, nondistended. Extremities: No lower extremity edema. Psych: Alert and oriented. Procedures None Urinary Catheter: No Vascular Central Line Catheter: No A/P Problem List: (1) TIA (transient ischemic attack) ICD Code: G45.9 - Transient cerebral ischemic attack, unspecified Status: Acute (2) Atrial fibrillation with RVR ICD Code: I48.91 - Unspecified atrial fibrillation Status: Acute Assessment and Plan 1. TIA: Symptoms have resolved. Continue Eliquis. Carotid artery ultrasound, MRI , CT negative. Continue PT/OT/ST. Neurology consultation is pending. Echocardiogram pending. 2. Hypertension: Continue metoprolol. 3. Atrial fibrillation with RVR: Start Cardizem drip. Consult patient's director regulatory compliance. Transferred to [facility] for anticoagulation. 4. GERD: Continue Prilosec. 5. Hyperlipidemia: Continue statin. 6. DVT prophylaxis: Eliquis. Problem Qualifiers (1) TIA (transient ischemic attack): Qualified Codes: G45.9 - Transient cerebral ischemic attack, unspecified Suraj Witt MD Jul 14, 2017 14:14
--- NOTE | 2017-07-14 15:12 | EKG ---
Date Performed: 07/14/2017 Time Performed: 09:41:04 PTAGE: 82 years EKG: ATRIAL FIBRILLATION WITH RAPID VENTRICULAR RESPONSE NONSPECIFIC ST & T-WAVE ABNORMALITY ABN ORMAL ECG PREVIOUS TRACING : 07/13/2017 12.57 Compared to the previous tracing SR no longer present DOCTOR: Margot Archibald Interpretating Date/Time 07/14/2017 15:12:08
[2017-07-14] MEDS: DILTIAZEM INJ 125 MG in SODIUM CHLORIDE 0.9% INJ 100 ML IV PRN (17:28)
[2017-07-14] MEDS ORDERED: ASPIRIN EC 325 MG TABEC PO SCH (18:00)
--- NOTE | 2017-07-14 19:48 | RADRPT ---
EXAM DATE/TIME: 07/14/2017 18:52 [facility] COMPARISON: MRI BRAIN W/O CONTRAST, July 13, 2017, 16:56. INDICATIONS : TIA. Episode of confusion today. MEDICAL HISTORY : Renal calculi. SURGICAL HISTORY : Appendectomy. Cholecystectomy. Fusion, cervical. Bilateral knee repalcement. ENCOUNTER: Subsequent ACUITY: 2 day PAIN SCORE: 0/10 LOCATION: head. TECHNIQUE: Multiplanar, multisequence MRI of the brain was performed without contrast. FINDINGS: There is mild to moderate atrophic change again noted. Chronic small vessel ischemic changes are also again noted with increased signal in the white matter. The ventricular system remains within no rmal limits. On the axial flair weighted images there has been and interval change with ill-defined high sign al now noted involving the parietal gyri right greater than left. The gyri appear effaced on the sequ ences. There is no mass effect or midline shift. On the T2-weighted sequences and T1 weighted sequenc es these appear stable and unremarkable with no abnormal signal. Small lacunar infarcts are again not ed in the basal ganglia. The posterior fossa and brainstem remain unremarkable. CONCLUSION: Interval change in the appearance of the flair weighted images over the parietal gyri right greater t pal[place] left which is of concern for possible subarachnoid hemorrhage. There is no interparenchymal hemor rhage or mass effect. A noncontrast head CT may be helpful for further evaluation. Dl Dominguez MD on July 14, 2017 at 19:42 Board Certified Radiologist. This report was verified electronically.
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
--- NOTE | 2017-07-14 21:13 | RADRPT ---
EXAM DATE/TIME: 07/14/2017 20:56 [facility] COMPARISON: CT BRAIN W/O CONTRAST, July 13, 2017, 12:20. INDICATIONS : Altered mental status. Evaluate for hemorrhage. RADIATION DOSE: 45.09 CTDIvol (mGy) MEDICAL HISTORY : TIA. SURGICAL HISTORY : Fusion, cervical. ENCOUNTER: Subsequent ACUITY: 2 days PAIN SCALE: 0/10 LOCATION: cranial TECHNIQUE: Multiple contiguous axial images were obtained of the head. Using automated exposure control and adj ustment of the mA and/or kV according to patient size, radiation dose was kept as low as reasonably a chievable to obtain optimal diagnostic quality images. DICOM format image data is available electro nically for review and comparison. FINDINGS: CEREBRUM: The ventricles are normal for age. No evidence of midline shift, mass lesion, hemorrhage or acute in farction. There is a small lacunar infarct in the right basal ganglia. No extra-axial fluid collectio ns are seen. POSTERIOR FOSSA: The cerebellum and brainstem are intact. The 4th ventricle is midline. The cerebellopontine angle i s unremarkable. EXTRACRANIAL: The visualized portion of the orbits is intact. There is a small retention cyst again noted in the le ft maxillary sinus and SKULL: The calvaria is intact. No evidence of skull fracture. CONCLUSION: 1. No acute hemorrhage, mass or acute infarction. 2. Small stable lacunar sn the right basal ganglia. Dl Dominguez MD on July 14, 2017 at 21:09 Board Certified Radiologist. This report was verified electronically.
[2017-07-14] MEDS: METOPROLOL TARTRATE 100 MG TAB PO SCH (22:20)
[2017-07-14] MEDS ORDERED: DIGOXIN 0.5 MG/2 ML VIAL IV PUSH ONE (22:30)
[2017-07-14 22:44] LABS: CHOLESTEROL/ HDL RATIO 2.18 RATIO; HDL CHOLESTEROL 49.5 MG/DL (40.0-60.0)
--- NOTE | 2017-07-14 23:36 | MB ---
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 About 2 years ago he had some very brief episode of difficulty talking and he was started on Eliquis 5 mg twice a day. He then was admitted with left arm numbness and some numbness on his face yesterday which was transient, some left arm weakness, some numbness in his tongue, lasted about 15 minutes then resolved. He was noted to be in rapid atrial fibrillation. He has not missed his Eliquis according to his , and may have a little bit of memory problems at baseline. A stroke alert was called this evening, at approximately 5 p.m. when he was sitting up and all of a sudden had some difficulty talking, may have made some paraphasic errors according to the nursing staff but that seemed to have cleared when he was laid flat. REVIEW OF SYSTEMS: His denied any diabetes, stent, angioplasty, CABG, renal, hepatic, pulmonary disease, thyroid disease, lupus, ulcer, seizure. SOCIAL HISTORY He is not a smoker or drinker, lives with . FAMILY HISTORY Positive for cancer, negative for seizure or stroke. CURRENT MEDICATIONS 1. He is on Lopressor. 2. He is going to go on a Cardizem drip due to his rapid heart rate. His blood pressure, however, was not documented as being below 109 systolic. 3. Norvasc. 4. Prinivil. 5. Protonix. 6. Pravachol. 7. Vitamin C. 8. Eliquis 5 b.i.d. It looks like he got a dose at 8 o'clock this morning and unclear if he could have missed a dose yesterday. The order was written at 10:31 last evening. 9. 325 of aspirin yesterday. PHYSICAL EXAMINATION: On exam, currently blood pressure 149/80, 150 his heart rate is up to that, afebrile, 18, O2 sat 94%. There are no carotid bruits. Heart: Regular rhythm, although somewhat rapid. Neurologic: He is awake and alert. Speech is fluent. He does not appear to have definite aphasia at this time. He can repeat, name, calculate, show me his left thumb, seems a little bit confused though. He can say hello, goodbye, follow commands well. Pupils are equal. Visual morton full. Extraocular movements intact without nystagmus. Face is symmetric with normal sensation. Tongue was midline. No drift. Normal strength in upper and lower extremities bilaterally. DTRs are trace. Toes are downgoing bilaterally. Pinprick was intact throughout. He is not ataxic on [id number]. He could read properly although he seems minimally agitated and a little bit confused about what is going on. He does not understand why we are asking him all these questions. LABORATORY DATA CBC is normal. Basic metabolic profile normal. Calcium normal. Magnesium normal. LFTs normal. Troponin was negative prior to this, LDLs normal. TSH normal in March of this year. He had an MRA of the neck which was read as mild plaque only. He had a MRA of the [place] and that was also read as normal. He had an MRI of the brain on this admission, was also read as negative that was done yesterday. I would agree no acute infarct on the diffusion image. 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 I reviewed the MRA of the neck, everything looks intact from the arterial point of view. His echocardiogram showed a normal ejection fraction, left atrial size normal, otherwise essentially unremarkable. Valves looked okay. IMPRESSION: Sounds like probably several TIAs in the last 48 hours, rapid atrial fibrillation, no definite low blood pressure here today. I would recheck his MRI, see if we can document an actual infarct and I would recommend switching to Xarelto from Eliquis at this point. I would ask the med team to go and do that. Will check a B12, there might be a little bit of memory problems, and also an EEG. Will give him a baby aspirin tonight. MD MAGGIE Tee/MATHEW /5:34 PM /11:24 PM
[2017-07-14] MEDS: ASPIRIN EC 81 MG TABEC PO SCH (23:58)
[2017-07-14] MEDS: RIVAROXABAN 20 MG TAB PO SCH (23:59)
[2017-07-15] VITALS (15 sets, daily range): BP systolic 94–165; BP diastolic 53–79; PULSE 86–147; RESP 17–23; TEMP 97.8–99.1; O2SAT 93–97
[2017-07-15 05:21] LABS: BICARBONATE 25.9 MEQ/L (21.0-32.0); CALCIUM 8.4 MG/DL (8.5-10.1); CREATININE 0.86 MG/DL (0.60-1.30)
[2017-07-15] MEDS ORDERED: DIGOXIN 0.5 MG/2 ML VIAL IV PUSH ONE (05:30)
[2017-07-15] MEDS: LISINOPRIL 20 MG TAB PO SCH (09:00)
[2017-07-15] MEDS: SODIUM CHLORIDE 0.9% FLUSH 10 ML FLUSH IV FLUSH SCH ×2 (09:59→21:00)
[2017-07-15] MEDS: SODIUM CHLOR 0.9% 1000 ML INJ 1,000 ML IV SCH ×2 (09:59→20:22)
[2017-07-15] MEDS: ASCORBIC ACID 500 MG TAB PO SCH (10:00)
[2017-07-15] MEDS: ASPIRIN EC 81 MG TABEC PO SCH (10:00)
[2017-07-15] MEDS: MULTIVITAMIN TAB PO SCH (10:00)
[2017-07-15] MEDS: METOPROLOL TARTRATE 100 MG TAB PO SCH ×2 (10:00→21:51)
[2017-07-15] MEDS: PRAVASTATIN SOD 40 MG TAB PO SCH (10:01)
[2017-07-15] MEDS: PANTOPRAZOLE SOD 20 MG DELAYED RELEASE TAB PO SCH (10:01)
[2017-07-15] MEDS: CALCIUM CARBONATE 1.25 GM (CA 500 MG) TAB PO SCH ×2 (10:01→21:51)
--- NOTE | 2017-07-15 10:48 | PD.CONS ---
HPI Consult Requested By Primary Care Physician Abiel Xie MD History of Present Illness 82-year-old male with history of TIA in September 2015, atrial fibrillation, hypertension, hyperlipidemia who woke up this morning with sudden onset of left- sided numbness involving the cheek, facial droop, left hand numbness. Patient had similar experiences in the past with this and called 911. Patient states that within an hour all symptoms resolved. Patient has along hx of Afib on chronic oral anticoagulation and reports being compliant with medications. cardiology consulted for Afib with RVR. Review of Systems Consitutional: DENIES: Fatigue, Fever, Chills, Weight gain, Weight loss Eyes: DENIES: Amaurosis Fugax, Change in vision HEENT: DENIES: Lightheadedness, Change in hearing Respiratory: DENIES: See HPI, Cough, Snoring, Shortness of breath, Wheezing, Sputum production Cardiovascular: DENIES: See HPI, Chest pain, Palpitations, Syncope, Tachycardia Gastrointestinal: DENIES: Nausea, Vomiting, Change in bowel habits, Reflux, Bloody stools, Melena Genitourinary: DENIES: Urinary incontinence, Difficulty voiding Integumentary: DENIES: Rash Neurologic: DENIES: Tingling or numbness, Memory problems, Poor Balance, Stroke symptoms Musculoskeletal: DENIES: Joint pain, Muscle pain, Limited range of motion, Back pain Psychiatric: DENIES: Anxiety, Depression, Sleep disturbances Hematologic: DENIES: Bruising tendencies, Bleeding tendencies Endocrine: DENIES: Weight gain, Weight loss, Thyroid disease Past Family Social History Allergies: Coded Allergies: No Known Allergies (Verified Allergy, Unknown, 07/13/17) Past Medical History Hypertension Hyperlipidemia GERD Urinary frequency TIA in March 2016 Hyperlipidemia Afib Past Surgical History Appendectomy Melanoma removal Kidney stone removal Gallbladder surgery Bilateral knee replacement Next surgery C3-C4 Reported Medications Reported Meds & Active Scripts Active Cardizem CD 24 HR (Diltiazem CD 24 HR) 240 Mg Caper 240 Mg PO DAILY Reported Norvasc (Amlodipine Besylate) 10 Mg Tab 10 Mg PO DAILY Lutein 20 Mg Cap 20 Mg PO DAILY Vitamin C (Ascorbic Acid) 250 Mg Tab 500 Mg PO DAILY Fish Oil (Hebo-3 Fatty Acids) 300 Mg Capsule 600 Mg PO DAILY Calcium (Calcium Carbonate) 600 Mg Calcium (1500 Mg) Tab 1,200 Mg PO BID Multiple Vitamin 1 Tab 1 Tab PO DAILY Tylenol Extra Strength (Acetaminophen) 500 Mg Tablet 500 Mg PO Q4HR PRN Pravachol (Pravastatin) 40 Mg Tab 40 Mg PO DAILY Benazepril (Benazepril HCl) 20 Mg Tab 20 Mg PO DAILY Toprol XL (Metoprolol Succinate) 100 Mg Tab 200 Mg PO DAILY Doxazosin (Doxazosin Mesylate) 4 Mg Tab 2 Mg PO HS Eliquis (Apixaban) 5 Mg Tab 5 Mg PO BID Pantoprazole (Pantoprazole Sodium) 20 Mg Tab 20 Mg PO DAILY Active Ordered Medications Current Medications Medications (Trade) Dose Ordered Sig/Magan Route Start Time Stop Time Status Last Admin (NS Flush) 2 ml BID IV FLUSH 07/13/17 21:00 07/15/17 09:59 (NS Flush) 2 ml UNSCH PRN IV FLUSH 07/13/17 14:30 (Tylenol) 500 mg Q4HR PRN PO 07/13/17 18:30 07/14/17 09:15 (Norvasc) 10 mg DAILY PO 07/14/17 09:00 07/14/17 08:04 (Eliquis) 5 mg BID PO 07/13/17 21:00 Future Hold 07/14/17 08:04 (Prinivil) 20 mg DAILY PO 07/14/17 09:00 07/14/17 08:04 (Protonix) 20 mg DAILY PO 07/14/17 09:00 07/15/17 10:01 (Pravachol) 40 mg DAILY PO 07/14/17 09:00 07/15/17 10:01 (Catapres) 0.1 mg Q6H PRN PO 07/13/17 19:00 (Vitamin C) 500 mg DAILY PO 07/14/17 09:00 07/15/17 10:00 (Oscal) 1,000 mg BID PO 07/13/17 21:00 07/15/17 10:01 (Theragran) 1 tab DAILY PO 07/14/17 09:00 07/15/17 10:00 (Lopressor) 100 mg Q12HR PO 07/14/17 21:00 07/15/17 10:00 Diltiazem HCl 125 mg/Sodium Chloride 125 ml @ 5 mls/hr TITRATE PRN IV 07/14/17 15:00 07/14/17 17:28 Sodium Chloride 1,000 ml @ 75 mls/hr [id number] IV 07/14/17 17:42 07/15/17 09:59 (Xarelto) 20 mg HS PO 07/14/17 22:15 07/14/17 23:59 (Ecotrin Ec) 81 mg DAILY PO 07/14/17 22:45 07/15/17 10:00 Family History Positive for lung cancer =mother and a sister Social History Patient never smoked never drink alcohol no history of substance abuse Physical Exam Vital Signs Vital Signs Date Time Temp Pulse Resp B/P (MAP) Pulse Ox O2 Delivery O2 Flow Rate FiO2 07/15/17 06:00 130 07/15/17 04:22 98.8 128 17 94/53 (67) 93 07/15/17 04:00 128 07/15/17 02:00 120 07/15/17 00:22 98.8 112 18 95/64 (74) 94 07/15/17 00:00 112 07/14/17 22:00 140 07/14/17 20:22 98.7 136 20 140/67 (91) 97 07/14/17 20:00 136 07/14/17 18:00 98.7 154 16 138/88 (105) 96 07/14/17 18:00 154 07/14/17 17:28 154 149/88 07/14/17 12:27 98.8 105 18 116/80 (92) 94 Physical Exam GENERAL: Well-nourished, well-developed patient. SKIN: Warm and dry. HEAD: Normocephalic. EYES: No scleral icterus. No injection or drainage. NECK: Supple, trachea midline. No JVD or lymphadenopathy. CARDIOVASCULAR: Irr Irr without murmurs, gallops, or rubs. RESPIRATORY: Breath sounds equal bilaterally. No accessory muscle use. GASTROINTESTINAL: Abdomen soft, non-tender, nondistended. EXTREMITIES: No cyanosis, or edema. NEUROLOGICAL: Awake, alert, and oriented x 3. Non-focal. Laboratory Laboratory Tests Test 07/14/17 21:27 07/15/17 04:20 Erythrocyte Sedimentation Rate 4 Triglycerides Level 101 Cholesterol Level 108 LDL Cholesterol 38 HDL Cholesterol 49.5 Cholesterol/HDL Ratio 2.18 Vitamin B12 Level 510 Blood Urea Nitrogen 15 Creatinine 0.86 Random Glucose 108 Calcium Level 8.4 Sodium Level 139 Potassium Level 3.5 Chloride Level 103 Carbon Dioxide Level 25.9 Anion Gap 10 Estimat Glomerular Filtration Rate 85 Result Diagram: 07/14/17 0842 07/15/17 0420 Imaging Last Impressions Brain MRI 07/14/17 1742 Signed Impressions: Service Date/Time: Friday, July 14, 2017 18:52 - CONCLUSION: Interval change in the appearance of the flair weighted images over the parietal gyri right greater than left which is of concern for possible subarachnoid hemorrhage. There is no interparenchymal hemorrhage or mass effect. A noncontrast head CT may be helpful for further evaluation. Dl Dominguez MD Neck Magnetic Resonance Angiography 07/13/17 1326 Signed Impressions: Service Date/Time: Thursday, July 13, 2017 16:56 - CONCLUSION: 1. Mild plaque in the common carotid arteries and proximal internal carotid arteries with no significant stenosis. 2. Plaque and mild stenosis in the right vertebral artery without significant change. Dl Dominguez MD Head Magnetic Resonance Angiography 07/13/17 1326 Signed Impressions: Service Date/Time: Thursday, July 13, 2017 16:56 - CONCLUSION: 1. Unremarkable MR angiography of the brain. Richie Vargas MD Head CT 07/13/17 1158 Signed Impressions: Service Date/Time: Thursday, July 13, 2017 12:20 - CONCLUSION: 1. Stable noncontrast head CT. No acute intracranial abnormality is identified. 2. Chronic and stable changes include generalized atrophy and chronic white matter changes. Abhishek Arambula MD Chest X-Ray 07/13/17 1158 Signed Impressions: Service Date/Time: Thursday, July 13, 2017 12:20 - CONCLUSION: No acute cardiopulmonary abnormality is identified. Abhishek Arambula MD Carotid Artery Ultrasound 07/13/17 0000 Signed Impressions: Service Date/Time: Thursday, July 13, 2017 14:57 - CONCLUSION: Mild bilateral plaquing with no evidence of a hemodynamically significant lesion. Dl Dominguez MD Assessment and Plan Problem List: (1) Atrial fibrillation with RVR ICD Codes: I48.91 - Unspecified atrial fibrillation Status: Acute Plan: Afib with RVR. Complaint with OAC/Eliquis. ?Failed Eliquis switch to Pradaxa ?Subarachnoid Hemorrhage on MRI 07/14/2017. Not seen in follow up CT. Plan: Cont rate control with Cardizem drip. Avoid electrolytes abnormalities Start digoxin Hold Norvasc and ACEi IV hydration OAC per Neurology Thank you for the opportunity to participate in the care of this patient (2) HTN (hypertension) ICD Codes: I10 - Essential (primary) hypertension Status: Acute (3) HLD (hyperlipidemia) ICD Codes: E78.5 - Hyperlipidemia, unspecified Status: Acute (4) Acute ischemic left MCA stroke ICD Codes: I63.512 - Cerebral infarction due to unspecified occlusion or stenosis of left middle cerebral artery Status: Acute (5) CAD (coronary artery disease) ICD Codes: I25.10 - Atherosclerotic heart disease of [place] coronary artery without angina pectoris Status: Acute (6) TIA (transient ischemic attack) ICD Codes: G45.9 - Transient cerebral ischemic attack, unspecified Status: Acute Problem Qualifiers (1) TIA (transient ischemic attack): Qualified Codes: G45.9 - Transient cerebral ischemic attack, unspecified Alex Chou MD Jul 15, 2017 10:48
[2017-07-15] MEDS: DILTIAZEM INJ 125 MG in SODIUM CHLORIDE 0.9% INJ 100 ML IV PRN (11:18)
--- NOTE | 2017-07-15 14:32 | MG ---
cc: ANGELIC VUONG MD Lab No: Date: 07/15/2017 Age: Sex: M Race: DATE OF [address] Whitehead MEDICAL HISTORY Atrial fibrillation, TIAs, migraine, cervical degenerative disk disease, admitted for left-sided facial numbness and weakness in the left hand, diagnosis TIA. MEDICATIONS 1. Digoxin. 2. Aspirin. 3. Xarelto. 4. Lopressor. 5. Diltiazem. 6. Norvasc. 7. Lisinopril. 8. Protonix. DESCRIPTION The background activity is 8-9 Hz alpha located posteriorly bilateral and symmetrical. There is excessive movement artifact during the recording. Hyperventilation was not done. Photic stimulation did not elicit driving response. There were no electrographic seizures or epileptiform discharges noted during the recording. INTERPRETATION: This is an awake EEG. Beta activity is a nonspecific finding that may be related to medication adverse effect like benzos and barbiturates. Absence of electrographic seizures or epileptiform discharges does not rule out diagnosis of epilepsy. Clinical correlation is recommended. Angelic Vuong MD RGO/TLL /2:17 PM /2:29 PM MTDD
--- NOTE | 2017-07-15 17:03 | HHI.PR ---
Review/Management Diagnosis 1. TIA. 2. Hypertension / uncontrolled. 3. History of atrial fibrillation. 4. Hyperlipidemia. Plan - Neuro checks Q1h - Xarelto 20mg - D/C Eliquis - Management of A fib, cardiology on board - DVT prophylaxis, SCDs' - GI prophylaxis Diagnosis/Plan: Subjective Subjective Comments Reported numbness of left UE and face last night Ordered an MRI, ? sub arachnoid hemorrhage Head CT scan is unremarkable for an acute abnormality EEG is unremarkable for an ictal activity Active Medications Current Medications Medications (Trade) Dose Ordered Sig/Magan Route Start Time Stop Time Status Last Admin (NS Flush) 2 ml BID IV FLUSH 07/13/17 21:00 07/15/17 09:59 (NS Flush) 2 ml UNSCH PRN IV FLUSH 07/13/17 14:30 (Tylenol) 500 mg Q4HR PRN PO 07/13/17 18:30 07/14/17 09:15 (Eliquis) 5 mg BID PO 07/13/17 21:00 Future Hold 07/14/17 08:04 (Protonix) 20 mg DAILY PO 07/14/17 09:00 07/15/17 10:01 (Pravachol) 40 mg DAILY PO 07/14/17 09:00 07/15/17 10:01 (Catapres) 0.1 mg Q6H PRN PO 07/13/17 19:00 (Vitamin C) 500 mg DAILY PO 07/14/17 09:00 07/15/17 10:00 (Oscal) 1,000 mg BID PO 07/13/17 21:00 07/15/17 10:01 (Theragran) 1 tab DAILY PO 07/14/17 09:00 07/15/17 10:00 (Lopressor) 100 mg Q12HR PO 07/14/17 21:00 07/15/17 10:00 Diltiazem HCl 125 mg/Sodium Chloride 125 ml @ 5 mls/hr TITRATE PRN IV 07/14/17 15:00 07/15/17 11:18 Sodium Chloride 1,000 ml @ 75 mls/hr [id number] IV 07/14/17 17:42 07/15/17 09:59 (Xarelto) 20 mg HS PO 07/14/17 22:15 07/14/17 23:59 (Ecotrin Ec) 81 mg DAILY PO 07/14/17 22:45 07/15/17 10:00 Allergies Allergies Coded Allergies No Known Allergies (Verified Allergy, Unknown, 07/13/17) Review of Systems All other ROS: ROS reviewed as documented in chart Exam I&O / VS 07/15/17 07/15/17 07/16/17 15:00 23:00 07:00 Intake Total 1050 ml 960 ml Output Total 650 ml Balance 1050 ml 310 ml Intake Oral 960 ml IV Total 1050 ml Output Urine Total 650 ml # Bowel Movements 0 Vital Signs Date Time Temp Pulse Resp B/P (MAP) Pulse Ox O2 Delivery O2 Flow Rate FiO2 07/15/17 16:00 97.8 132 21 161/74 (103) 94 07/15/17 16:00 134 07/15/17 14:00 104 07/15/17 12:00 86 07/15/17 12:00 98.2 86 23 165/61 (95) 96 07/15/17 11:18 108 108/73 07/15/17 11:00 108 108/73 (85) 07/15/17 10:00 115 07/15/17 08:00 119 07/15/17 08:00 99.1 119 21 128/72 (90) 97 07/15/17 07:00 96 Room Air 07/15/17 06:00 130 07/15/17 04:22 98.8 128 17 94/53 (67) 93 07/15/17 04:00 128 07/15/17 02:00 120 07/15/17 00:22 98.8 112 18 95/64 (74) 94 07/15/17 00:00 112 07/14/17 22:00 140 07/14/17 20:22 98.7 136 20 140/67 (91) 97 07/14/17 20:00 136 07/14/17 18:00 98.7 154 16 138/88 (105) 96 07/14/17 18:00 154 07/14/17 17:28 154 149/88 Exam Comments HEENT: Atraumatic, normocephalic. Intact hearing. Intact vision. Neck: Trachea midline. No signs of meningeal irritation. Cardiovascular: Regular rate and rhythm without murmur Respiratory: Clear to auscultation. No wheezes. Gastrointestinal: Soft abdomen nontender. Musculoskeletal: No clubbing, no cyanosis or edema. Neurological: Awake, alert, oriented to time, person and place. No dysarthria. No dysphasia. Cranial nerves II-XII are grossly intact. Intact facial sensation. No facial asymmetry. No diplopia. No nystagmus. Extremities: Upper and lower extremity 5 /5 bilateral symmetrical. Normal tone and no abnormal movement. Reflexes 2+ bilateral symmetrical upper extremity, 1+ bilateral symmetrical lower extremities. Intact stance, negative ataxia, negative Romberg sign. Not ataxic. Psychiatric: Normal mood and behavior. No hallucinations. Objective Radiology Results Last 72 hours Impressions Brain MRI 07/14/17 1742 Signed Impressions: Service Date/Time: Friday, July 14, 2017 18:52 - CONCLUSION: Interval change in the appearance of the flair weighted images over the parietal gyri right greater than left which is of concern for possible subarachnoid hemorrhage. There is no interparenchymal hemorrhage or mass effect. A noncontrast head CT may be helpful for further evaluation. Dl Dominguez MD Head CT 07/14/17 0000 Signed Impressions: Service Date/Time: Friday, July 14, 2017 20:56 - CONCLUSION: 1. No acute hemorrhage, mass or acute infarction. 2. Small stable lacunar sn the right basal ganglia. Dl Dominguez MD Neck Magnetic Resonance Angiography 07/13/171325 Signed Impressions: Service Date/Time: Thursday, July 13, 2017 16:56 - CONCLUSION: 1. Mild plaque in the common carotid arteries and proximal internal carotid arteries with no significant stenosis. 2. Plaque and mild stenosis in the right vertebral artery without significant change. Dl Dominguez MD Head Magnetic Resonance Angiography [id number] Signed Impressions: Service Date/Time: Thursday, July 13, 2017 16:56 - CONCLUSION: 1. Unremarkable MR angiography of the brain. Richie Vargas MD Brain MRI [id number] Signed Impressions: Service Date/Time: Thursday, July 13, 2017 16:56 - CONCLUSION: 1. No evidence of acute intracranial pathology. Chronic ischemic changes as above. Richie Vargas MD Head CT 07/13/17 1158 Signed Impressions: Service Date/Time: Thursday, July 13, 2017 12:20 - CONCLUSION: 1. Stable noncontrast head CT. No acute intracranial abnormality is identified. 2. Chronic and stable changes include generalized atrophy and chronic white matter changes. Abhishek Arambula MD Chest X-Ray 07/13/17 1158 Signed Impressions: Service Date/Time: Thursday, July 13, 2017 12:20 - CONCLUSION: No acute cardiopulmonary abnormality is identified. Abhishek Arambula MD Carotid Artery Ultrasound 07/13/17 0000 Signed Impressions: Service Date/Time: Thursday, July 13, 2017 14:57 - CONCLUSION: Mild bilateral plaquing with no evidence of a hemodynamically significant lesion. Dl Dominguez MD Micro and Labs Laboratory Tests Test 07/14/17 21:27 07/15/17 04:20 Erythrocyte Sedimentation Rate 4 Triglycerides Level 101 Cholesterol Level 108 LDL Cholesterol 38 HDL Cholesterol 49.5 Cholesterol/HDL Ratio 2.18 Vitamin B12 Level 510 Rapid Plasma Reagin NON-REACTIVE Blood Urea Nitrogen 15 Creatinine 0.86 Random Glucose 108 Calcium Level 8.4 Sodium Level 139 Potassium Level 3.5 Chloride Level 103 Carbon Dioxide Level 25.9 Anion Gap 10 Estimat Glomerular Filtration Rate 85 Vanda Vuong MD Jul 15, 2017 17:03
--- NOTE | 2017-07-15 17:12 | HHI.PR ---
Subjective Remarks Reports has no palpitations or chest pain or shortness of breath doing well. No other complaints at this time. Objective Vitals Vital Signs Date Time Temp Pulse Resp B/P (MAP) Pulse Ox O2 Delivery O2 Flow Rate FiO2 07/15/17 16:00 97.8 132 21 161/74 (103) 94 07/15/17 16:00 134 07/15/17 14:00 104 07/15/17 12:00 86 07/15/17 12:00 98.2 86 23 165/61 (95) 96 07/15/17 11:18 108 108/73 07/15/17 11:00 108 108/73 (85) 07/15/17 10:00 115 07/15/17 08:00 119 07/15/17 08:00 99.1 119 21 128/72 (90) 97 07/15/17 07:00 96 Room Air 07/15/17 06:00 130 07/15/17 04:22 98.8 128 17 94/53 (67) 93 07/15/17 04:00 128 07/15/17 02:00 120 07/15/17 00:22 98.8 112 18 95/64 (74) 94 07/15/17 00:00 112 07/14/17 22:00 140 07/14/17 20:22 98.7 136 20 140/67 (91) 97 07/14/17 20:00 136 07/14/17 18:00 98.7 154 16 138/88 (105) 96 07/14/17 18:00 154 07/14/17 17:28 154 149/88 I/O 07/14/17 07/14/17 07/14/17 07/15/17 07/15/17 07/15/17 07:00 15:00 23:00 07:00 15:00 23:00 Intake Total 480 ml 100 ml 1050 ml 960 ml Output Total 400 ml 100 ml 650 ml Balance -400 ml 380 ml 100 ml 1050 ml 310 ml Intake Oral 480 ml 100 ml 960 ml IV Total 1050 ml Output Urine Total 400 ml 100 ml 650 ml # Voids 1 6 4 # Bowel Movements 0 Result Diagram: 07/14/17 0842 07/15/17 0420 Objective Remarks GENERAL: This is a well-nourished, well-developed patient, in no apparent distress. CARDIOVASCULAR: Regular rate and rhythm RESPIRATORY: Clear to auscultation. Breath sounds equal bilaterally. No wheezes , rales, or rhonchi. GASTROINTESTINAL: Abdomen soft, non-tender, nondistended. Normal active bowel sounds MUSCULOSKELETAL: Extremities without clubbing, cyanosis, or edema. NEURO: Alert & Oriented x4 to person, place, time, situation. Moves all ext x4 , overall motor strength 5 out of 5 bilateral upper and lower extremities. Procedures None A/P Problem List: (1) TIA (transient ischemic attack) ICD Code: G45.9 - Transient cerebral ischemic attack, unspecified Status: Acute (2) Atrial fibrillation with RVR ICD Code: I48.91 - Unspecified atrial fibrillation Status: Acute Assessment and Plan 1. Recurrent TIA: Patient had another stroke alert event yesterday evening and a repeat MRI and CT scan was obtained. Neurology has recommended to switch Eliquis to xarelto. Carotid artery ultrasound, MRI, CT negative. Continue PT/OT/ ST. Echocardiogram pending. EEG negative, continue with aspirin, statin. Continue neurological checks every 4 in intensive care unit 2. Hypertension, essential: Continue metoprolol. 3. Atrial fibrillation with RVR: Started Cardizem drip currently on 15 mg. continue by mouth Lopressor. Consult patient's medical administrative technician, Dr. Young covering for Dr. Onofre. Nicolasarelkriss for anticoagulation. Await 2-D echo results. 4. GERD: Continue Prilosec. 5. Hyperlipidemia: Continue statin. 6. DVT prophylaxis: Xarelto. Discharge Planning Likely home when stable. Problem Qualifiers (1) TIA (transient ischemic attack): Qualified Codes: G45.9 - Transient cerebral ischemic attack, unspecified Yamilka Velazquez MD Jul 15, 2017 17:12
[2017-07-15] MEDS: RIVAROXABAN 20 MG TAB PO SCH (21:51)
[2017-07-16] VITALS (11 sets, daily range): BP systolic 124–154; BP diastolic 72–98; PULSE 93–145; RESP 16–22; TEMP 97.3–99.1; O2SAT 94–97
[2017-07-16] MEDS: DILTIAZEM INJ 125 MG in SODIUM CHLORIDE 0.9% INJ 100 ML IV PRN ×2 (04:49→21:23)
[2017-07-16] MEDS: ASCORBIC ACID 500 MG TAB PO SCH (08:24)
[2017-07-16] MEDS: PRAVASTATIN SOD 40 MG TAB PO SCH (08:24)
[2017-07-16] MEDS: MULTIVITAMIN TAB PO SCH (08:24)
[2017-07-16] MEDS: PANTOPRAZOLE SOD 20 MG DELAYED RELEASE TAB PO SCH (08:24)
[2017-07-16] MEDS: ASPIRIN EC 81 MG TABEC PO SCH (08:25)
[2017-07-16] MEDS: METOPROLOL TARTRATE 100 MG TAB PO SCH ×2 (08:25→21:22)
[2017-07-16] MEDS: CALCIUM CARBONATE 1.25 GM (CA 500 MG) TAB PO SCH ×2 (08:25→21:00)
[2017-07-16] MEDS: SODIUM CHLORIDE 0.9% FLUSH 10 ML FLUSH IV FLUSH SCH ×2 (09:00→21:24)
--- NOTE | 2017-07-16 15:09 | HHI.PR ---
Subjective Remarks No complaints of weakness or numbness. No complaint of chest pain or palpitations. Objective Vitals Vital Signs Date Time Temp Pulse Resp B/P (MAP) Pulse Ox O2 Delivery O2 Flow Rate FiO2 07/16/17 12:00 145 07/16/17 12:00 98.8 120 21 154/95 (114) 97 07/16/17 10:00 145 07/16/17 08:00 145 07/16/17 08:00 99.1 119 21 128/72 (90) 97 07/16/17 07:00 Room Air 07/16/17 06:00 145 07/16/17 04:49 135 140/88 07/16/17 04:00 98.0 93 18 124/87 (99) 96 07/16/17 04:00 139 07/16/17 02:00 105 07/16/17 00:00 112 07/16/17 00:00 97.6 130 22 132/80 (97) 94 07/15/17 22:00 120 07/15/17 20:00 Room Air 07/15/17 20:00 134 07/15/17 20:00 97.9 147 23 111/79 (90) 95 07/15/17 20:00 120 07/15/17 18:00 140 07/15/17 16:00 97.8 132 21 161/74 (103) 94 07/15/17 16:00 134 I/O 07/15/17 07/15/17 07/15/17 07/16/17 07/16/17 07/16/17 07:00 15:00 23:00 07:00 15:00 23:00 Intake Total 100 ml 1050 ml 1916 ml 1269 ml Output Total 800 ml 950 ml Balance 100 ml 1050 ml 1116 ml 319 ml Intake Oral 100 ml 960 ml 100 ml IV Total 1050 ml 956 ml 1169 ml Output Urine Total 800 ml 950 ml # Voids 4 # Bowel Movements 0 Result Diagram: 07/14/17 0842 07/15/17 0420 Other Results Last Impressions Brain MRI 07/14/17 910 Signed Impressions: Service Date/Time: Friday, July 14, 2017 18:52 - CONCLUSION: Interval change in the appearance of the flair weighted images over the parietal gyri right greater than left which is of concern for possible subarachnoid hemorrhage. There is no interparenchymal hemorrhage or mass effect. A noncontrast head CT may be helpful for further evaluation. Dl Dominguez MD Head CT 07/14/17 0000 Signed Impressions: Service Date/Time: Friday, July 14, 2017 20:56 - CONCLUSION: 1. No acute hemorrhage, mass or acute infarction. 2. Small stable lacunar sn the right basal ganglia. Dl Dominguez MD Neck Magnetic Resonance Angiography 07/13/17 1326 Signed Impressions: Service Date/Time: Thursday, July 13, 2017 16:56 - CONCLUSION: 1. Mild plaque in the common carotid arteries and proximal internal carotid arteries with no significant stenosis. 2. Plaque and mild stenosis in the right vertebral artery without significant change. Dl Dominguez MD Head Magnetic Resonance Angiography 07/13/17 1326 Signed Impressions: Service Date/Time: Thursday, July 13, 2017 16:56 - CONCLUSION: 1. Unremarkable MR angiography of the brain. Richie Vargas MD Chest X-Ray 07/13/17 1158 Signed Impressions: Service Date/Time: Thursday, July 13, 2017 12:20 - CONCLUSION: No acute cardiopulmonary abnormality is identified. Abhishek Arambula MD Carotid Artery Ultrasound 07/13/17 0000 Signed Impressions: Service Date/Time: Thursday, July 13, 2017 14:57 - CONCLUSION: Mild bilateral plaquing with no evidence of a hemodynamically significant lesion. Dl Dominguez MD Objective Remarks GENERAL: This is a well-nourished, well-developed patient, in no apparent distress. CARDIOVASCULAR: Tachycardic irregular rhythm RESPIRATORY: Clear to auscultation. Breath sounds equal bilaterally. No wheezes , rales, or rhonchi. GASTROINTESTINAL: Abdomen soft, non-tender, nondistended. Normal active bowel sounds MUSCULOSKELETAL: Extremities without clubbing, cyanosis, or edema. NEURO: Alert & Oriented x4 to person, place, time, situation. Moves all ext x4 , overall motor strength 5 out of 5 bilateral upper and lower extremities. Procedures None A/P Problem List: (1) TIA (transient ischemic attack) ICD Code: G45.9 - Transient cerebral ischemic attack, unspecified Status: Acute (2) Atrial fibrillation with RVR ICD Code: I48.91 - Unspecified atrial fibrillation Status: Acute Assessment and Plan 1. Recurrent TIA: Patient had another stroke alert event 07/14 evening and a repeat MRI and CT scan was obtained. Neurology has recommended to switch Eliquis to xarelto. Carotid artery ultrasound, MRI, CT negative. Continue PT/OT/ ST. Echocardiogram pending. EEG negative, continue with aspirin, statin. Neurological checks has been stable. At this time will transfer to cardiac unit stepdown for continued Cardizem infusion 2. Hypertension, essential: Continue metoprolol. 3. Atrial fibrillation with RVR: Started Cardizem drip currently on 15 mg. continue by mouth Lopressor and increase dose to 150 twice a day. Consult patient's manual lathe machinist, Dr. Young covering for Dr. Onofre. Xarelto for anticoagulation. Await 2-D echo results, ejection fraction 60- 65%. 4. GERD: Continue Prilosec. 5. Hyperlipidemia: Continue statin. 6. DVT prophylaxis: Xarelto. Discharge Planning Transfer to cardiac intermediate unit continue to wean off Cardizem drip and discharge to home if continues be neurologically stable and able to have better heart rate control. Problem Qualifiers (1) TIA (transient ischemic attack): Qualified Codes: G45.9 - Transient cerebral ischemic attack, unspecified Yamilka Velazquez MD Jul 16, 2017 15:09
[2017-07-16] MEDS ORDERED: PILL SPLITTER OTHER PRN (15:30)
[2017-07-16] MEDS ORDERED: METOPROLOL TARTRATE 50 MG TAB PO ONE (17:00)
[2017-07-16] MEDS ORDERED: BISACODYL 10 MG SUPP RECTAL PRN (21:00)
[2017-07-16] MEDS ORDERED: SENNOSIDES 8.6 MG TAB PO PRN (21:00)
[2017-07-16] MEDS: RIVAROXABAN 20 MG TAB PO SCH (21:23)
[2017-07-16] MEDS: MAGNESIUM HYDROXIDE SUSP 30 ML CUP PO PRN (21:23)
[2017-07-16] MEDS: DOCUSATE SODIUM 50 MG/SENNA 8.6 MG TAB PO SCH (21:23)
[2017-07-16] MEDS: SODIUM CHLOR 0.9% 1000 ML INJ 1,000 ML IV SCH (21:42)
[2017-07-17] VITALS (19 sets, daily range): BP systolic 106–143; BP diastolic 67–102; PULSE 78–139; RESP 16–18; TEMP 97–98.3; O2SAT 91–98
[2017-07-17] MEDS: DILTIAZEM INJ 125 MG in SODIUM CHLORIDE 0.9% INJ 100 ML IV PRN ×3 (05:26→23:00)
--- NOTE | 2017-07-17 07:07 | HHI.PR ---
Subjective Remarks Patient seen and examined this morning. Heart rate in the 120s, up to the 140s. BP is stable. Denies CP or SOB. Denies palpitations. Doesn't like the cardizem, says it makes him feel weird. Objective Vital Signs Date Time Temp Pulse Resp B/P (MAP) Pulse Ox O2 Delivery O2 Flow Rate FiO2 07/17/17 06:00 121 07/17/17 05:26 107 140/88 07/17/17 04:00 98.0 105 18 131/84 (100) 94 07/17/17 04:00 112 07/17/17 02:00 110 07/17/17 00:00 97.7 129 18 106/67 (80) 93 07/17/17 00:00 120 07/16/17 22:00 123 07/16/17 21:23 137 119/79 07/16/17 20:00 Room Air 07/16/17 20:00 114 07/16/17 20:00 97.3 140 16 139/98 (112) 94 07/16/17 18:00 145 07/16/17 16:00 145 07/16/17 16:00 98.6 120 21 131/95 (107) 97 07/16/17 12:00 145 07/16/17 12:00 98.8 120 21 154/95 (114) 97 07/16/17 10:00 145 07/16/17 08:00 145 07/16/17 08:00 99.1 119 21 128/72 (90) 97 07/16/17 07:00 Room Air I/O 07/16/17 07/16/17 07/16/17 07/17/17 07/17/17 07/17/17 07:00 15:00 23:00 07:00 15:00 23:00 Intake Total 1269 ml 2990 ml 1055 ml Output Total 950 ml 1100 ml 1000 ml Balance 319 ml 1890 ml 55 ml Intake Oral 100 ml 915 ml 360 ml IV Total 1169 ml 2075 ml 695 ml Output Urine Total 950 ml 1100 ml 1000 ml # Bowel Movements 0 Result Diagram: 07/14/17 0842 07/15/17 0420 Imaging Last Impressions Brain MRI 07/14/17 0565 Signed Impressions: Service Date/Time: Friday, July 14, 2017 18:52 - CONCLUSION: Interval change in the appearance of the flair weighted images over the parietal gyri right greater than left which is of concern for possible subarachnoid hemorrhage. There is no interparenchymal hemorrhage or mass effect. A noncontrast head CT may be helpful for further evaluation. Dl Dominguez MD Head CT 07/14/17 0000 Signed Impressions: Service Date/Time: Friday, July 14, 2017 20:56 - CONCLUSION: 1. No acute hemorrhage, mass or acute infarction. 2. Small stable lacunar sn the right basal ganglia. Dl Dominguez MD Neck Magnetic Resonance Angiography 07/13/17 1326 Signed Impressions: Service Date/Time: Thursday, July 13, 2017 16:56 - CONCLUSION: 1. Mild plaque in the common carotid arteries and proximal internal carotid arteries with no significant stenosis. 2. Plaque and mild stenosis in the right vertebral artery without significant change. Dl Dominguez MD Head Magnetic Resonance Angiography 07/13/17 1326 Signed Impressions: Service Date/Time: Thursday, July 13, 2017 16:56 - CONCLUSION: 1. Unremarkable MR angiography of the brain. Richie Vargas MD Chest X-Ray 07/13/17 1158 Signed Impressions: Service Date/Time: Thursday, July 13, 2017 12:20 - CONCLUSION: No acute cardiopulmonary abnormality is identified. Abhishek Arambula MD Carotid Artery Ultrasound 07/13/17 0000 Signed Impressions: Service Date/Time: Thursday, July 13, 2017 14:57 - CONCLUSION: Mild bilateral plaquing with no evidence of a hemodynamically significant lesion. Dl Dominguez MD Objective Remarks GENERAL: comfortable appearing, nad SKIN: Warm and dry. HEAD: Normocephalic. EYES: No scleral icterus. No injection or drainage. NECK: Supple, trachea midline. No JVD or lymphadenopathy. CARDIOVASCULAR: Rapid rate and irregular rhythm without murmurs, gallops, or rubs. RESPIRATORY: Breath sounds equal bilaterally. No accessory muscle use. GASTROINTESTINAL: Abdomen soft, non-tender, nondistended. MUSCULOSKELETAL: No cyanosis, or edema. NO calf tenderness. A/P Problem List: (1) TIA (transient ischemic attack) ICD Code: G45.9 - Transient cerebral ischemic attack, unspecified Status: Acute (2) Atrial fibrillation with RVR ICD Code: I48.91 - Unspecified atrial fibrillation Status: Acute (3) HTN (hypertension) ICD Code: I10 - Essential (primary) hypertension Status: Acute (4) HLD (hyperlipidemia) ICD Code: E78.5 - Hyperlipidemia, unspecified Status: Acute Assessment and Plan 82-year-old male with a medical history significant for stroke, hypertension, A. fib presented to the hospital on 07/13 with chief complaint of left arm numbness and facial numbness that resolved upon admission. Admission the patient was noted to be in A. fib with RVR. Patient was previously on Eliquis, but because he had an event on this medication he was switched to Xarelto. On 07/14/2017 stroke was called in the evening at approximately 5 PM when the patient had acute onset of difficulty talking. Patient is stable neurologically. He is being followed by neurology and cardiology. Recurrent TIA: See imaging above. Events noted on 07/13 and 07/14. Currently being followed by Dr. Whitehead. EEG negative. RPR negative, B12 within normal limits. Continue aspirin and statin. Continue PT, OT, ST. Echo pending. A-Fib: A.fib with RVR. Currently on Cardizem drip. Norvasc and KASSANDRA inhibitor on hold. Continue Lopressor 150 mg twice a day. Followed by corporate strategy analyst Dr. Young (known to Dr. Yang) HTN: KASSANDRA inhibitor and amlodipine on hold HLD: cont statin GERD: Protonix is 20 mg daily Electrolytes: replete K(3.5) DVT proph: Currently on Xarelto Discharge Planning Patient continues to be in A. fib with RVR. Because of elevated heart rate at baseline PT was unable to evaluate patient. Stabilization of heart rate patient can have a PT evaluation and discharge planning can then be arranged. The patient has been given a list of SNFs to consider. Order was placed previously for transfer to [facility], given persistent elevated HR patient was kept in ICU. Problem Qualifiers (1) TIA (transient ischemic attack): Qualified Codes: G45.9 - Transient cerebral ischemic attack, unspecified Keyonna Novak MD Jul 17, 2017 07:07
[2017-07-17] MEDS ORDERED: POTASSIUM CHLORIDE 20 MEQ CONTROLLED RELEASE TAB PO ONE (08:15)
[2017-07-17] MEDS: MULTIVITAMIN TAB PO SCH (08:41)
[2017-07-17] MEDS: PANTOPRAZOLE SOD 20 MG DELAYED RELEASE TAB PO SCH (08:42)
[2017-07-17] MEDS: ASCORBIC ACID 500 MG TAB PO SCH (08:42)
[2017-07-17] MEDS: PRAVASTATIN SOD 40 MG TAB PO SCH (08:42)
[2017-07-17] MEDS: ASPIRIN EC 81 MG TABEC PO SCH (08:42)
[2017-07-17] MEDS: METOPROLOL TARTRATE 100 MG TAB PO SCH ×2 (08:42→20:39)
[2017-07-17] MEDS: DOCUSATE SODIUM 50 MG/SENNA 8.6 MG TAB PO SCH ×2 (08:42→20:39)
[2017-07-17] MEDS: SODIUM CHLORIDE 0.9% FLUSH 10 ML FLUSH IV FLUSH SCH ×2 (08:43→20:40)
[2017-07-17] MEDS: CALCIUM CARBONATE 1.25 GM (CA 500 MG) TAB PO SCH ×2 (08:44→20:38)
[2017-07-17] MEDS: SODIUM CHLOR 0.9% 1000 ML INJ 1,000 ML IV SCH (12:22)
[2017-07-17] MEDS: MAGNESIUM HYDROXIDE SUSP 30 ML CUP PO PRN (17:35)
[2017-07-17] MEDS: RIVAROXABAN 20 MG TAB PO SCH (20:39)
[2017-07-18] VITALS (23 sets, daily range): BP systolic 127–131; BP diastolic 67–95; PULSE 72–142; RESP 16–20; TEMP 97.7–98.4; O2SAT 94–98
[2017-07-18] MEDS: SODIUM CHLOR 0.9% 1000 ML INJ 1,000 ML IV SCH (01:42)
--- NOTE | 2017-07-18 06:29 | HHI.PR ---
Subjective Remarks Patient seen and examined this morning. Heart rate in the 120s, up to the 140s. BP is stable. Still on cardizem drip. He is frustrated that he is still in the hospital. Wants to walk around. He denies CP or SOB. Objective Vital Signs Date Time Temp Pulse Resp B/P (MAP) Pulse Ox O2 Delivery O2 Flow Rate FiO2 07/18/17 03:00 97.9 120 18 128/67 (87) 95 07/18/17 03:00 Room Air 07/18/17 02:03 103 07/18/17 01:00 94 07/18/17 00:00 114 07/17/17 23:00 Room Air 07/17/17 23:00 97.7 111 18 132/90 (104) 95 07/17/17 23:00 110 07/17/17 23:00 111 132/90 07/17/17 22:00 106 07/17/17 21:00 120 07/17/17 20:00 111 07/17/17 20:00 97.0 118 18 143/102 (116) 96 07/17/17 20:00 Room Air 07/17/17 19:00 87 07/17/17 18:12 111 07/17/17 17:08 106 07/17/17 16:37 101 126/91 07/17/17 16:20 113 07/17/17 15:30 78 07/17/17 15:30 97.5 101 18 126/91 (103) 95 07/17/17 14:01 111 07/17/17 13:03 97 07/17/17 12:57 104 07/17/17 12:22 90 132/85 07/17/17 11:00 78 07/17/17 11:00 98.0 90 18 132/85 (101) 98 07/17/17 10:45 92 07/17/17 08:00 139 07/17/17 08:00 98.3 139 16 134/92 (106) 91 07/17/17 07:15 92 Room Air I/O 07/17/17 07/17/17 07/17/17 07/18/17 07/18/17 07/18/17 07:00 15:00 23:00 07:00 15:00 23:00 Intake Total 1055 ml 1260 ml Output Total 1000 ml 800 ml Balance 55 ml 460 ml Intake Oral 360 ml 600 ml IV Total 695 ml 660 ml Output Urine Total 1000 ml 800 ml # Bowel Movements 0 0 Result Diagram: 07/14/17 0842 07/15/17 0420 Imaging Last Impressions Brain MRI 07/14/17 1742 Signed Impressions: Service Date/Time: Friday, July 14, 2017 18:52 - CONCLUSION: Interval change in the appearance of the flair weighted images over the parietal gyri right greater than left which is of concern for possible subarachnoid hemorrhage. There is no interparenchymal hemorrhage or mass effect. A noncontrast head CT may be helpful for further evaluation. Dl Dominguez MD Head CT 07/14/17 0000 Signed Impressions: Service Date/Time: Friday, July 14, 2017 20:56 - CONCLUSION: 1. No acute hemorrhage, mass or acute infarction. 2. Small stable lacunar sn the right basal ganglia. Dl Dominguez MD Neck Magnetic Resonance Angiography 07/13/17 1326 Signed Impressions: Service Date/Time: Thursday, July 13, 2017 16:56 - CONCLUSION: 1. Mild plaque in the common carotid arteries and proximal internal carotid arteries with no significant stenosis. 2. Plaque and mild stenosis in the right vertebral artery without significant change. Dl Dominguez MD Head Magnetic Resonance Angiography 07/13/17 1326 Signed Impressions: Service Date/Time: Thursday, July 13, 2017 16:56 - CONCLUSION: 1. Unremarkable MR angiography of the brain. Rihcie Vargas MD Chest X-Ray 07/13/17 1158 Signed Impressions: Service Date/Time: Thursday, July 13, 2017 12:20 - CONCLUSION: No acute cardiopulmonary abnormality is identified. Abhishek Arambula MD Carotid Artery Ultrasound 07/13/17 0000 Signed Impressions: Service Date/Time: Thursday, July 13, 2017 14:57 - CONCLUSION: Mild bilateral plaquing with no evidence of a hemodynamically significant lesion. Dl Dominguez MD Objective Remarks GENERAL: comfortable appearing, nad SKIN: Warm and dry. HEAD: Normocephalic. EYES: No scleral icterus. No injection or drainage. NECK: Supple, trachea midline. No JVD or lymphadenopathy. CARDIOVASCULAR: Rapid rate and irregular rhythm without murmurs, gallops, or rubs. RESPIRATORY: Breath sounds equal bilaterally. No accessory muscle use. GASTROINTESTINAL: Abdomen soft, non-tender, nondistended. MUSCULOSKELETAL: No cyanosis, or edema. NO calf tenderness. A/P Problem List: (1) TIA (transient ischemic attack) ICD Code: G45.9 - Transient cerebral ischemic attack, unspecified Status: Acute (2) Atrial fibrillation with RVR ICD Code: I48.91 - Unspecified atrial fibrillation Status: Acute (3) HTN (hypertension) ICD Code: I10 - Essential (primary) hypertension Status: Acute (4) HLD (hyperlipidemia) ICD Code: E78.5 - Hyperlipidemia, unspecified Status: Acute Assessment and Plan 82-year-old male with a medical history significant for stroke, hypertension, A. fib presented to the hospital on 07/13 with chief complaint of left arm numbness and facial numbness that resolved upon admission. Admission the patient was noted to be in A. fib with RVR. Patient was previously on Eliquis, but because he had an event on this medication he was switched to Xarelto. On 07/14/2017 stroke was called in the evening at approximately 5 PM when the patient had acute onset of difficulty talking. Patient is stable neurologically. He is being followed by neurology and cardiology. Recurrent TIA: See imaging above. Events noted on 07/13 and 07/14. Currently being followed by Dr. Whitehead. EEG negative. RPR negative, B12 within normal limits. Continue aspirin and statin. Continue PT, OT, ST. Echo pending. A-Fib: A.fib with RVR. Currently on Cardizem drip. Nolenvasrazia and KASSANDRA inhibitor on hold. Continue Lopressor 150 mg twice a day. Followed by picture frame maker Dr. Young (known to Dr. Yang) HTN: KASSANDRA inhibitor and amlodipine on hold HLD: cont statin GERD: Protonix is 20 mg daily Electrolytes: wnl, replete as necessary DVT proph: Currently on Xarelto Discharge Planning Because of elevated heart rate at baseline PT was unable to evaluate patient. Stabilization of heart rate patient can have a PT evaluation and discharge planning can then be arranged. The patient has been given a list of SNFs to consider. Order was placed previously for transfer to [facility], given persistent elevated HR patient was kept in ICU. Problem Qualifiers (1) TIA (transient ischemic attack): Qualified Codes: G45.9 - Transient cerebral ischemic attack, unspecified Keyonna Novak MD Jul 18, 2017 06:29
[2017-07-18] MEDS: DILTIAZEM INJ 125 MG in SODIUM CHLORIDE 0.9% INJ 100 ML IV PRN ×3 (09:00→23:27)
[2017-07-18] MEDS: CALCIUM CARBONATE 1.25 GM (CA 500 MG) TAB PO SCH ×2 (09:00→21:47)
[2017-07-18] MEDS: SODIUM CHLORIDE 0.9% FLUSH 10 ML FLUSH IV FLUSH SCH ×2 (09:00→21:00)
[2017-07-18] MEDS: ASCORBIC ACID 500 MG TAB PO SCH (09:09)
[2017-07-18] MEDS: ASPIRIN EC 81 MG TABEC PO SCH (09:09)
[2017-07-18] MEDS: PRAVASTATIN SOD 40 MG TAB PO SCH (09:09)
[2017-07-18] MEDS: MULTIVITAMIN TAB PO SCH (09:09)
[2017-07-18] MEDS: PANTOPRAZOLE SOD 20 MG DELAYED RELEASE TAB PO SCH (09:09)
[2017-07-18] MEDS: METOPROLOL TARTRATE 100 MG TAB PO SCH ×2 (09:10→21:46)
[2017-07-18] MEDS: DOCUSATE SODIUM 50 MG/SENNA 8.6 MG TAB PO SCH ×2 (09:10→21:48)
[2017-07-18] MEDS: RIVAROXABAN 20 MG TAB PO SCH (21:47)
[2017-07-19] VITALS (33 sets, daily range): BP systolic 118–157; BP diastolic 85–115; PULSE 82–146; RESP 16–22; TEMP 97.9–98.4; O2SAT 94–97
[2017-07-19] MEDS: DILTIAZEM INJ 125 MG in SODIUM CHLORIDE 0.9% INJ 100 ML IV PRN ×2 (07:14→16:46)
[2017-07-19 07:48] LABS: BICARBONATE 26.3 MEQ/L (21.0-32.0); CALCIUM 8.4 MG/DL (8.5-10.1); CREATININE 0.89 MG/DL (0.60-1.30)
[2017-07-19] MEDS: SODIUM CHLORIDE 0.9% FLUSH 10 ML FLUSH IV FLUSH SCH ×2 (09:00→21:00)
--- NOTE | 2017-07-19 09:08 | HHI.PR ---
Subjective Remarks This is a pleasant 82 y/o Male with history of TIA September 2015, Atrial Fibrillation, Hypertension, Hyperlipidemia, who came to ER Left sided numbness involving the cheek the bowel in the left hand mainly involving the 3 first 3 fingers. Patient also noted a facial droop which was confirmed by his . he is on Eliquis twice a day and is very compliant. patient admitted with diagnosis of Atrial Fibrillation with RVR today worsening condition Doctor Hector Started the patient on Amiodarone IV, discussed with him in am. patient with no complaint. discussed with nurse Miss Dickerson. Objective Vital Signs Date Time Temp Pulse Resp B/P (MAP) Pulse Ox O2 Delivery O2 Flow Rate FiO2 07/19/17 07:14 129 133/87 07/19/17 06:00 132 07/19/17 05:00 124 07/19/17 04:00 128 07/19/17 03:30 122 16 133/87 (102) 97 07/19/17 03:16 94 Room Air 07/19/17 03:00 128 07/19/17 02:00 122 07/19/17 01:00 120 07/19/17 00:00 124 07/18/17 23:27 130 127/95 07/18/17 23:00 94 Room Air 07/18/17 23:00 138 07/18/17 23:00 98.4 130 16 127/95 (106) 94 07/18/17 22:00 142 07/18/17 21:00 138 07/18/17 20:00 134 07/18/17 20:00 96 Room Air 07/18/17 19:44 97.7 125 20 128/95 (106) 96 07/18/17 19:00 132 07/18/17 18:08 119 07/18/17 17:46 128 07/18/17 17:00 72 131/88 07/18/17 16:54 109 07/18/17 15:40 98.2 72 18 131/88 (102) 96 07/18/17 15:40 98 Room Air 07/18/17 15:40 94 07/18/17 14:16 103 07/18/17 13:05 104 07/18/17 12:18 108 07/18/17 11:30 113 07/18/17 11:30 96 Room Air 07/18/17 11:30 97.8 97 18 128/81 (97) 96 07/18/17 10:52 92 07/18/17 09:15 138 07/18/17 09:15 97.8 111 18 130/94 (106) 98 07/18/17 09:15 98 Room Air I/O 07/18/17 07/18/17 07/18/17 07/19/17 07/19/17 07/19/17 07:00 15:00 23:00 07:00 15:00 23:00 Intake Total 240 ml 262.2 ml 720 ml 890 ml Output Total 2025 ml 1650 ml 1125 ml Balance -1785 ml 262.2 ml -930 ml -235 ml Intake Oral 240 ml 720 ml 720 ml IV Total 262.2 ml 170 ml Output Urine Total 2025 ml 1650 ml 1125 ml # Bowel Movements 0 1 Result Diagram: 07/19/17 0620 Imaging Last Impressions Brain MRI 07/14/17 1742 Signed Impressions: Service Date/Time: Friday, July 14, 2017 18:52 - CONCLUSION: Interval change in the appearance of the flair weighted images over the parietal gyri right greater than left which is of concern for possible subarachnoid hemorrhage. There is no interparenchymal hemorrhage or mass effect. A noncontrast head CT may be helpful for further evaluation. Dl Dominguez MD Head CT 07/14/17 0000 Signed Impressions: Service Date/Time: Friday, July 14, 2017 20:56 - CONCLUSION: 1. No acute hemorrhage, mass or acute infarction. 2. Small stable lacunar sn the right basal ganglia. Dl Dominguez MD Neck Magnetic Resonance Angiography 07/13/17 1326 Signed Impressions: Service Date/Time: Thursday, July 13, 2017 16:56 - CONCLUSION: 1. Mild plaque in the common carotid arteries and proximal internal carotid arteries with no significant stenosis. 2. Plaque and mild stenosis in the right vertebral artery without significant change. Dl Dominguez MD Head Magnetic Resonance Angiography 07/13/17 1326 Signed Impressions: Service Date/Time: Thursday, July 13, 2017 16:56 - CONCLUSION: 1. Unremarkable MR angiography of the brain. Richie Vargas MD Chest X-Ray 07/13/17 1158 Signed Impressions: Service Date/Time: Thursday, July 13, 2017 12:20 - CONCLUSION: No acute cardiopulmonary abnormality is identified. Abhishek Arambula MD Carotid Artery Ultrasound 07/13/17 0000 Signed Impressions: Service Date/Time: Thursday, July 13, 2017 14:57 - CONCLUSION: Mild bilateral plaquing with no evidence of a hemodynamically significant lesion. Dl Dominguez MD Procedures None Other Results Laboratory Tests Test 07/13/17 12:07 07/14/17 08:42 07/14/17 21:27 07/19/17 06:20 Prothrombin Time 11.6 SEC Prothromb Time International Ratio 1.0 RATIO Activated Partial Thromboplast Time 29.3 SEC Hemoglobin A1c 5.4 % Blood Urea Nitrogen 16 MG/DL 14 MG/DL 13 MG/DL Creatinine 1.03 MG/DL 0.78 MG/DL 0.89 MG/DL Random Glucose 98 MG/DL 112 MG/DL 98 MG/DL Total Protein 7.4 GM/DL Albumin 3.6 GM/DL Calcium Level 8.4 MG/DL 8.8 MG/DL 8.4 MG/DL Alkaline Phosphatase 48 U/L Aspartate Amino Transf (AST/SGOT) 27 U/L Alanine Aminotransferase (ALT/SGPT) 22 U/L Total Bilirubin 0.7 MG/DL Sodium Level 139 MEQ/L 138 MEQ/L 140 MEQ/L Potassium Level 4.1 MEQ/L 3.5 MEQ/L 3.5 MEQ/L Chloride Level 106 MEQ/L 105 MEQ/L 104 MEQ/L Carbon Dioxide Level 26.2 MEQ/L 23.5 MEQ/L 26.3 MEQ/L White Blood Count 8.2 TH/MM3 Red Blood Count 4.80 MIL/MM3 Hemoglobin 15.5 GM/DL Hematocrit 45.3 % Mean Corpuscular Volume 94.3 FL Mean Corpuscular Hemoglobin 32.2 PG Mean Corpuscular Hemoglobin Concent 34.1 % Red Cell Distribution Width 13.8 % Platelet Count 178 TH/MM3 Mean Platelet Volume 8.9 FL Neutrophils (%) (Auto) 73.1 % Lymphocytes (%) (Auto) 16.2 % Monocytes (%) (Auto) 8.8 % Eosinophils (%) (Auto) 1.6 % Basophils (%) (Auto) 0.3 % Neutrophils # (Auto) 6.0 TH/MM3 Lymphocytes # (Auto) 1.3 TH/MM3 Monocytes # (Auto) 0.7 TH/MM3 Eosinophils # (Auto) 0.1 TH/MM3 Basophils # (Auto) 0.0 TH/MM3 CBC Comment DIFF FINAL Differential Comment Magnesium Level 1.9 MG/DL Erythrocyte Sedimentation Rate 4 mm/hr Triglycerides Level 101 MG/DL Cholesterol Level 108 MG/DL LDL Cholesterol 38 MG/DL HDL Cholesterol 49.5 MG/DL Cholesterol/HDL Ratio 2.18 RATIO Vitamin B12 Level 510 PG/ML Rapid Plasma Reagin NON-REACTIVE Anion Gap 10 MEQ/L Estimat Glomerular Filtration Rate 81 ML/MIN Objective Remarks GENERAL: comfortable appearing, nad SKIN: Warm and dry. HEAD: Normocephalic. EYES: No scleral icterus. No injection or drainage. NECK: Supple, trachea midline. No JVD or lymphadenopathy. CARDIOVASCULAR: irregular rhythm without murmurs, gallops, or rubs. RESPIRATORY: Breath sounds equal bilaterally. No accessory muscle use. GASTROINTESTINAL: Abdomen soft, non-tender, nondistended. MUSCULOSKELETAL: No cyanosis, or edema. NO calf tenderness. Medications and IVs Current Medications Medications (Trade) Dose Ordered Sig/Magan Route Start Time Stop Time Status Last Admin (NS Flush) 2 ml BID IV FLUSH 07/13/17 21:00 07/18/17 09:00 (NS Flush) 2 ml UNSCH PRN IV FLUSH 07/13/17 14:30 (Tylenol) 500 mg Q4HR PRN PO 07/13/17 18:30 07/14/17 09:15 (Eliquis) 5 mg BID PO 07/13/17 21:00 Future Hold 07/14/17 08:04 (Protonix) 20 mg DAILY PO 07/14/17 09:00 07/18/17 09:09 (Pravachol) 40 mg DAILY PO 07/14/17 09:00 07/18/17 09:09 (Catapres) 0.1 mg Q6H PRN PO 07/13/17 19:00 (Vitamin C) 500 mg DAILY PO 07/14/17 09:00 07/18/17 09:09 (Oscal) 1,000 mg BID PO 07/13/17 21:00 07/18/17 21:47 (Theragran) 1 tab DAILY PO 07/14/17 09:00 07/18/17 09:09 Diltiazem HCl 125 mg/Sodium Chloride 125 ml @ 5 mls/hr TITRATE PRN IV 07/14/17 15:00 07/19/17 07:14 (Xarelto) 20 mg HS PO 07/14/17 22:15 07/18/17 21:47 (Ecotrin Ec) 81 mg DAILY PO 07/14/17 22:45 07/18/17 09:09 (Lopressor) 150 mg Q12HR PO 07/16/17 21:00 07/18/17 21:46 (Pill Splitter) 1 ea UNSCH PRN OTHER 07/16/17 15:30 (Lyric-Colace) 1 tab BID PO 07/16/17 21:00 07/18/17 21:48 (Milk Of Ashley Limorenita) 30 ml Q12H PRN PO 07/16/17 21:00 07/17/17 17:35 (Senokot) 17.2 mg Q12H PRN PO 07/16/17 21:00 07/18/17 09:09 (Dulcolax Supp) 10 mg DAILY PRN RECTAL 07/16/17 21:00 A/P Assessment and Plan 82-year-old male with a medical history significant for stroke, hypertension, A. fib presented to the hospital on 07/13 with chief complaint of left arm numbness and facial numbness that resolved upon admission. Admission the patient was noted to be in A. fib with RVR. Patient was previously on Eliquis, but because he had an event on this medication he was switched to Xarelto. On 07/14/2017 stroke was called in the evening at approximately 5 PM when the patient had acute onset of difficulty talking. Patient is stable neurologically. He is being followed by neurology and cardiology. Recurrent TIA: See imaging above. Events noted on 07/13 and 07/14. Currently being followed by Dr. Whitehead. EEG negative. RPR negative, B12 within normal limits. Continue aspirin and statin. Continue PT, OT, ST. Echocardiogram EF 60-65%. A-Fib: A.fib with RVR. was on Cardizem drip at this time seen by patient access specialist Doctor Young started Amiodarone and following. Norvasc and KASSANDRA inhibitor on hold. Continue Lopressor 150 mg twice a day. Cardiology following EF 60-65% HTN: KASSANDRA inhibitor and amlodipine on hold, Controlled. HLD: cont statin GERD: Protonix is 20 mg daily Electrolytes: wnl, replete as necessary, replaced today to try to keep Potassium over 4 and Magnesium over 2 DVT proph: Currently on Xarelto Discharge Planning Once cleared by patient access specialist. Atul Schmidt MD Jul 19, 2017 09:08
[2017-07-19] MEDS: PANTOPRAZOLE SOD 20 MG DELAYED RELEASE TAB PO SCH (09:22)
[2017-07-19] MEDS: CALCIUM CARBONATE 1.25 GM (CA 500 MG) TAB PO SCH ×2 (09:22→21:45)
[2017-07-19] MEDS: MULTIVITAMIN TAB PO SCH (09:22)
[2017-07-19] MEDS: ASCORBIC ACID 500 MG TAB PO SCH (09:22)
[2017-07-19] MEDS: PRAVASTATIN SOD 40 MG TAB PO SCH (09:22)
[2017-07-19] MEDS: DOCUSATE SODIUM 50 MG/SENNA 8.6 MG TAB PO SCH ×2 (09:22→21:45)
[2017-07-19] MEDS: METOPROLOL TARTRATE 100 MG TAB PO SCH ×2 (09:22→21:45)
[2017-07-19] MEDS: ASPIRIN EC 81 MG TABEC PO SCH (09:23)
[2017-07-19] MEDS: MAGNESIUM OXIDE 400 MG TAB PO SCH (09:26)
[2017-07-19] MEDS ORDERED: POTASSIUM CHLORIDE 20 MEQ CONTROLLED RELEASE TAB PO ONE (10:00)
[2017-07-19] MEDS ORDERED: METOPROLOL SUCCINATE 25 MG EXTENDED RELEASE TAB PO SCH (10:00)
--- NOTE | 2017-07-19 11:44 | PD.CARD.PN ---
Subjective Subjective Remarks afib with RVR on pradaxa Objective Medications Current Medications Medications (Trade) Dose Ordered Sig/Magan Route Start Time Stop Time Status Last Admin (NS Flush) 2 ml BID IV FLUSH 07/13/17 21:00 07/19/17 09:00 (NS Flush) 2 ml UNSCH PRN IV FLUSH 07/13/17 14:30 (Tylenol) 500 mg Q4HR PRN PO 07/13/17 18:30 07/14/17 09:15 (Eliquis) 5 mg BID PO 07/13/17 21:00 Future Hold 07/14/17 08:04 (Protonix) 20 mg DAILY PO 07/14/17 09:00 07/19/17 09:22 (Pravachol) 40 mg DAILY PO 07/14/17 09:00 07/19/17 09:22 (Catapres) 0.1 mg Q6H PRN PO 07/13/17 19:00 (Vitamin C) 500 mg DAILY PO 07/14/17 09:00 07/19/17 09:22 (Oscal) 1,000 mg BID PO 07/13/17 21:00 07/19/17 09:22 (Theragran) 1 tab DAILY PO 07/14/17 09:00 07/19/17 09:22 Diltiazem HCl 125 mg/Sodium Chloride 125 ml @ 5 mls/hr TITRATE PRN IV 07/14/17 15:00 07/19/17 07:14 (Xarelto) 20 mg HS PO 07/14/17 22:15 07/18/17 21:47 (Ecotrin Ec) 81 mg DAILY PO 07/14/17 22:45 07/19/17 09:23 (Lopressor) 150 mg Q12HR PO 07/16/17 21:00 07/19/17 09:22 (Pill Splitter) 1 ea UNSCH PRN OTHER 07/16/17 15:30 (Lyric-Colace) 1 tab BID PO 07/16/17 21:00 07/19/17 09:22 (Milk Of Magnesia Liq) 30 ml Q12H PRN PO 07/16/17 21:00 07/17/17 17:35 (Senokot) 17.2 mg Q12H PRN PO 07/16/17 21:00 07/18/17 09:09 (Dulcolax Supp) 10 mg DAILY PRN RECTAL 07/16/17 21:00 (Toprol Xl) 25 mg DAILY PO 07/19/17 10:00 07/19/17 09:26 (Mag-Ox) 400 mg DAILY PO 07/19/17 10:00 07/19/17 09:26 Vital Signs / I&O Vital Signs Date Time Temp Pulse Resp B/P (MAP) Pulse Ox O2 Delivery O2 Flow Rate FiO2 07/19/17 07:14 129 133/87 07/19/17 06:00 132 07/19/17 05:00 124 07/19/17 04:00 128 07/19/17 03:30 122 16 133/87 (102) 97 07/19/17 03:16 94 Room Air 07/19/17 03:00 128 07/19/17 02:00 122 07/19/17 01:00 120 07/19/17 00:00 124 07/18/17 23:27 130 127/95 07/18/17 23:00 94 Room Air 07/18/17 23:00 138 07/18/17 23:00 98.4 130 16 127/95 (106) 94 07/18/17 22:00 142 07/18/17 21:00 138 07/18/17 20:00 134 07/18/17 20:00 96 Room Air 07/18/17 19:44 97.7 125 20 128/95 (106) 96 07/18/17 19:00 132 07/18/17 18:08 119 07/18/17 17:46 128 07/18/17 17:00 72 131/88 07/18/17 16:54 109 07/18/17 15:40 98.2 72 18 131/88 (102) 96 07/18/17 15:40 98 Room Air 07/18/17 15:40 94 07/18/17 14:16 103 07/18/17 13:05 104 07/18/17 12:18 108 I/O 07/18/17 07/18/17 07/18/17 07/19/17 07/19/17 07/19/17 07:00 15:00 23:00 07:00 15:00 23:00 Intake Total 240 ml 262.2 ml 720 ml 890 ml Output Total 2025 ml 1650 ml 1125 ml Balance -1785 ml 262.2 ml -930 ml -235 ml Intake Oral 240 ml 720 ml 720 ml IV Total 262.2 ml 170 ml Output Urine Total 2025 ml 1650 ml 1125 ml # Bowel Movements 0 1 Physical Exam GENERAL: Well-nourished, well-developed patient. SKIN: Warm and dry. HEAD: Normocephalic. EYES: No scleral icterus. No injection or drainage. NECK: Supple, trachea midline. No JVD or lymphadenopathy. CARDIOVASCULAR: Regular rate and rhythm without murmurs, gallops, or rubs. RESPIRATORY: Breath sounds equal bilaterally. No accessory muscle use. GASTROINTESTINAL: Abdomen soft, non-tender, nondistended. EXTREMITIES: No cyanosis, or edema. NEUROLOGICAL: Awake, alert, and oriented x 3. Non-focal. Laboratory Laboratory Tests Test 07/19/17 06:20 Blood Urea Nitrogen 13 MG/DL Creatinine 0.89 MG/DL Random Glucose 98 MG/DL Calcium Level 8.4 MG/DL Sodium Level 140 MEQ/L Potassium Level 3.5 MEQ/L Chloride Level 104 MEQ/L Carbon Dioxide Level 26.3 MEQ/L Anion Gap 10 MEQ/L Estimat Glomerular Filtration Rate 81 ML/MIN Assessment and Plan Problem List: (1) Atrial fibrillation with RVR ICD Codes: I48.91 - Unspecified atrial fibrillation Status: Acute Plan: Afib with RVR on Cardizem drip Plan: Cont OAC Start Amio IV Case discuss with Dr. Robb (2) HTN (hypertension) ICD Codes: I10 - Essential (primary) hypertension Status: Acute (3) HLD (hyperlipidemia) ICD Codes: E78.5 - Hyperlipidemia, unspecified Status: Acute (4) Acute ischemic left MCA stroke ICD Codes: I63.512 - Cerebral infarction due to unspecified occlusion or stenosis of left middle cerebral artery Status: Acute (5) CAD (coronary artery disease) ICD Codes: I25.10 - Atherosclerotic heart disease of [place] coronary artery without angina pectoris Status: Acute (6) TIA (transient ischemic attack) ICD Codes: G45.9 - Transient cerebral ischemic attack, unspecified Status: Acute Problem Qualifiers (1) TIA (transient ischemic attack): Qualified Codes: G45.9 - Transient cerebral ischemic attack, unspecified Alex Chou MD Jul 19, 2017 11:44
[2017-07-19] MEDS ORDERED: AMIODARONE 150 MG/D5W 97 ML BOLUS 10 MINUTES IV ONE ×2 (12:15)
[2017-07-19] MEDS ORDERED: AMIODARONE INJ 450 MG in D5W (EXCEL BAG) INJ 241 ML IV PRN (13:00)
[2017-07-19] MEDS: RIVAROXABAN 20 MG TAB PO SCH (21:45)
[2017-07-20] VITALS (7 sets, daily range): BP systolic 124–145; BP diastolic 67–103; PULSE 52–120; RESP 18–22; TEMP 98.6–98.9; O2SAT 92–94
[2017-07-20] MEDS ORDERED: diphenhydrAMINE HCL 25 MG CAP PO ONE (00:45)
--- NOTE | 2017-07-20 08:51 | PD.CARD.PN ---
Subjective Subjective Remarks afib with RVR on pradaxa Objective Medications Current Medications Medications (Trade) Dose Ordered Sig/Magan Route Start Time Stop Time Status Last Admin (NS Flush) 2 ml BID IV FLUSH 07/13/17 21:00 07/19/17 09:00 (NS Flush) 2 ml UNSCH PRN IV FLUSH 07/13/17 14:30 (Tylenol) 500 mg Q4HR PRN PO 07/13/17 18:30 07/14/17 09:15 (Eliquis) 5 mg BID PO 07/13/17 21:00 Future Hold 07/14/17 08:04 (Protonix) 20 mg DAILY PO 07/14/17 09:00 07/19/17 09:22 (Pravachol) 40 mg DAILY PO 07/14/17 09:00 07/19/17 09:22 (Catapres) 0.1 mg Q6H PRN PO 07/13/17 19:00 07/19/17 23:40 (Vitamin C) 500 mg DAILY PO 07/14/17 09:00 07/19/17 09:22 (Oscal) 1,000 mg BID PO 07/13/17 21:00 07/19/17 21:45 (Theragran) 1 tab DAILY PO 07/14/17 09:00 07/19/17 09:22 Diltiazem HCl 125 mg/Sodium Chloride 125 ml @ 5 mls/hr TITRATE PRN IV 07/14/17 15:00 07/19/17 16:46 (Xarelto) 20 mg HS PO 07/14/17 22:15 07/19/17 21:45 (Ecotrin Ec) 81 mg DAILY PO 07/14/17 22:45 07/19/17 09:23 (Lopressor) 150 mg Q12HR PO 07/16/17 21:00 07/19/17 21:45 (Pill Splitter) 1 ea UNSCH PRN OTHER 07/16/17 15:30 (Lyric-Colace) 1 tab BID PO 07/16/17 21:00 07/19/17 21:45 (Milk Of Magnesia Liq) 30 ml Q12H PRN PO 07/16/17 21:00 07/17/17 17:35 (Senokot) 17.2 mg Q12H PRN PO 07/16/17 21:00 11/5/17 09:09 (Dulcolax Supp) 10 mg DAILY PRN RECTAL 07/16/17 21:00 (Toprol Xl) 25 mg DAILY PO 07/19/17 10:00 07/19/17 09:26 (Mag-Ox) 400 mg DAILY PO 07/19/17 10:00 07/19/17 09:26 Amiodarone HCl 450 mg/Dextrose 250 ml @ 33.33 mls/ hr TITRATE PRN IV 07/19/17 13:00 07/19/17 13:01 Vital Signs / I&O Vital Signs Date Time Temp Pulse Resp B/P (MAP) Pulse Ox O2 Delivery O2 Flow Rate FiO2 07/20/17 03:00 94 Room Air 07/20/17 03:00 98.9 55 22 124/67 (86) 94 07/20/17 00:00 98.6 108 18 145/103 (117) 92 07/19/17 23:00 92 Room Air 07/19/17 20:00 97.9 112 22 138/97 (111) 95 07/19/17 19:00 108 07/19/17 19:00 95 Room Air 07/19/17 18:00 96 07/19/17 17:00 90 07/19/17 16:46 109 136/90 07/19/17 16:00 86 07/19/17 16:00 98.1 99 16 136/90 (105) 95 07/19/17 15:00 104 07/19/17 14:35 105 118/85 (96) 97 07/19/17 14:15 100 125/91 (102) 95 07/19/17 14:00 106 07/19/17 13:40 97 136/100 (112) 96 07/19/17 13:25 85 144/99 (114) 95 07/19/17 13:22 82 136/101 (113) 94 07/19/17 13:15 97 128/95 (106) 96 07/19/17 13:10 116 136/91 (106) 96 07/19/17 13:08 120 127/88 (101) 96 07/19/17 13:01 121 138/99 07/19/17 13:00 121 138/99 07/19/17 13:00 108 07/19/17 12:00 108 07/19/17 12:00 98.4 119 16 121/98 (106) 95 07/19/17 11:00 112 07/19/17 10:00 140 07/19/17 09:00 146 I/O 07/19/17 07/19/17 07/19/17 07/20/17 07/20/17 07/20/17 07:00 15:00 23:00 07:00 15:00 23:00 Intake Total 890 ml 1128.5 ml 240 ml Output Total 1125 ml 1200 ml 475 ml Balance -235 ml -71.5 ml -235 ml Intake Oral 720 ml 840 ml 240 ml IV Total 170 ml 288.5 ml Output Urine Total 1125 ml 1200 ml 475 ml Physical Exam GENERAL: Well-nourished, well-developed patient. SKIN: Warm and dry. HEAD: Normocephalic. EYES: No scleral icterus. No injection or drainage. NECK: Supple, trachea midline. No JVD or lymphadenopathy. CARDIOVASCULAR: Regular rate and rhythm without murmurs, gallops, or rubs. RESPIRATORY: Breath sounds equal bilaterally. No accessory muscle use. GASTROINTESTINAL: Abdomen soft, non-tender, nondistended. EXTREMITIES: No cyanosis, or edema. NEUROLOGICAL: Awake, alert, and oriented x 3. Non-focal. Assessment and Plan Problem List: (1) Atrial fibrillation with RVR ICD Codes: I48.91 - Unspecified atrial fibrillation Status: Acute Plan: Afib rate control No CV complaints Plan: Discontinue Amio drip after completion of 24hrs. Then start Amio 400mg PO BID Start Lopressor 50mg PO BID Cont OAC Stable to be d/c home from CV standpoint (2) HTN (hypertension) ICD Codes: I10 - Essential (primary) hypertension Status: Acute (3) HLD (hyperlipidemia) ICD Codes: E78.5 - Hyperlipidemia, unspecified Status: Acute (4) Acute ischemic left MCA stroke ICD Codes: I63.512 - Cerebral infarction due to unspecified occlusion or stenosis of left middle cerebral artery Status: Acute (5) CAD (coronary artery disease) ICD Codes: I25.10 - Atherosclerotic heart disease of [place] coronary artery without angina pectoris Status: Acute (6) TIA (transient ischemic attack) ICD Codes: G45.9 - Transient cerebral ischemic attack, unspecified Status: Acute Problem Qualifiers (1) TIA (transient ischemic attack): Qualified Codes: G45.9 - Transient cerebral ischemic attack, unspecified Alex Chou MD Jul 20, 2017 08:51
[2017-07-20] MEDS ORDERED: METOPROLOL SUCCINATE 25 MG EXTENDED RELEASE TAB PO SCH (09:00)
[2017-07-20] MEDS: DOCUSATE SODIUM 50 MG/SENNA 8.6 MG TAB PO SCH (09:00)
[2017-07-20] MEDS ORDERED: METOPROLOL TARTRATE 50 MG TAB PO SCH ×3 (09:00→21:00)
[2017-07-20] MEDS ORDERED: PILL SPLITTER OTHER PRN (10:15)
--- NOTE | 2017-07-20 11:13 | RADRPT ---
EXAM DATE/TIME: 07/20/2017 10:14 [place] COMPARISON: No previous studies available for comparison. INDICATIONS : Right arm swelling. MEDICAL HISTORY : Hypertension. Arthritis. Renal calculi. Bulging discs. CVA. Migraines. Afib. Acid reflux. 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 SURGICAL HISTORY : Appendectomy. Cholecystectomy. Cataract surgery. C3-C4 disectomy. Kidney stone removal. Bilateral k nee replacement. Left finger surgery. ENCOUNTER: Initial ACUITY: 1 day PAIN SCORE: 5/10 LOCATION: Right arm. FINDINGS: There are abnormal intraluminal echoes representing thrombus within the basilic vein. This vessel als o demonstrates lack of blood flow. Otherwise, there is spontaneous flow documented in the brachial, cephalic, axillary, and subclavian v eins. The vessels are compressible and augmentation response is documented. No filling defects are seen. The flow is phasic with respiration. Direction of flow in the jugular vein is caudal. CONCLUSION: 1. There is occlusive superficial thrombosis of the right basilic vein. This is reported to be in the location of a prior IV site. 2. The remaining veins of the right upper extremity including the internal jugular vein are patent. Abhishek Arambula MD on July 20, 2017 at 11:07 Board Certified Radiologist. This report was verified electronically.
[2017-07-20] MEDS: SODIUM CHLORIDE 0.9% FLUSH 10 ML FLUSH IV FLUSH SCH (11:14)
[2017-07-20] MEDS: MAGNESIUM OXIDE 400 MG TAB PO SCH (11:15)
[2017-07-20] MEDS: PRAVASTATIN SOD 40 MG TAB PO SCH (11:15)
[2017-07-20] MEDS: MULTIVITAMIN TAB PO SCH (11:15)
[2017-07-20] MEDS: ASCORBIC ACID 500 MG TAB PO SCH (11:15)
[2017-07-20] MEDS: CALCIUM CARBONATE 1.25 GM (CA 500 MG) TAB PO SCH (11:15)
[2017-07-20] MEDS: PANTOPRAZOLE SOD 20 MG DELAYED RELEASE TAB PO SCH (11:15)
[2017-07-20] MEDS: ASPIRIN EC 81 MG TABEC PO SCH (11:16)
--- NOTE | 2017-07-20 11:38 | HHI.PR ---
Subjective Remarks This is a pleasant 82 y/o Male with history of TIA September 2015, Atrial Fibrillation, Hypertension, Hyperlipidemia, who came to ER Left sided numbness involving the cheek the bowel in the left hand mainly involving the 3 first 3 fingers. Patient also noted a facial droop which was confirmed by his . he is on Eliquis twice a day and is very compliant. patient admitted with diagnosis of Atrial Fibrillation with RVR today worsening condition Doctor Hector Started the patient on Amiodarone IV, discussed with him in am. patient with no complaint. discussed with nurse Miss Dickerson. 07/20: Discussed with doctor Young, patient in the room and nurse Miss Minaya, I tried to contact his and her Daughter Miss Abida Caballero left message at her home and on her another phone [phone] no answer , the patient is stable already recommended by electronic security specialist Doctor Young for discharge and follow in his office, as per Nurse Miss Minaya the Amiodarone drip is due in one more Hour and will go home on Metoprolol 50 mg BID and Amiodarone 400 mg BID will follow with doctor Young in one week, on his left arm there's an extravasation with Basilic vein thrombus as superficial the patient is already on Xarelto for Atrial Fibrillation, also was seen today by Physical Therapy recommended going Home with [facility] continue Physical Therapy will go with Skilled nurse. Objective Vital Signs Date Time Temp Pulse Resp B/P (MAP) Pulse Ox O2 Delivery O2 Flow Rate FiO2 07/20/17 06:00 58 07/20/17 05:00 56 07/20/17 04:00 68 07/20/17 03:00 94 Room Air 07/20/17 03:00 52 07/20/17 03:00 98.9 55 22 124/67 (86) 94 07/20/17 02:00 52 07/20/17 01:00 96 07/20/17 00:00 120 07/20/17 00:00 98.6 108 18 145/103 (117) 92 07/19/17 23:00 92 Room Air 07/19/17 23:00 88 07/19/17 22:00 102 07/19/17 21:00 98 07/19/17 20:00 99 07/19/17 20:00 97.9 112 22 138/97 (111) 95 07/19/17 19:00 108 07/19/17 19:00 95 Room Air 07/19/17 18:00 96 07/19/17 17:00 90 07/19/17 16:46 109 136/90 07/19/17 16:00 86 07/19/17 16:00 98.1 99 16 136/90 (105) 95 07/19/17 15:00 104 07/19/17 14:35 105 118/85 (96) 97 07/19/17 14:15 100 125/91 (102) 95 07/19/17 14:00 106 07/19/17 13:40 97 136/100 (112) 96 07/19/17 13:25 85 144/99 (114) 95 07/19/17 13:22 82 136/101 (113) 94 07/19/17 13:15 97 128/95 (106) 96 07/19/17 13:10 116 136/91 (106) 96 07/19/17 13:08 120 127/88 (101) 96 07/19/17 13:01 121 138/99 07/19/17 13:00 121 138/99 07/19/17 13:00 108 07/19/17 12:00 108 07/19/17 12:00 98.4 119 16 121/98 (106) 95 I/O 07/19/17 07/19/17 07/19/17 07/20/17 07/20/17 07/20/17 07:00 15:00 23:00 07:00 15:00 23:00 Intake Total 890 ml 1128.5 ml 240 ml Output Total 1125 ml 1200 ml 475 ml Balance -235 ml -71.5 ml -235 ml Intake Oral 720 ml 840 ml 240 ml IV Total 170 ml 288.5 ml Output Urine Total 1125 ml 1200 ml 475 ml Result Diagram: 07/19/17 0620 Imaging Last Impressions Upper Extremity Ultrasound 07/20/17 0000 Signed Impressions: Service Date/Time: Thursday, July 20, 2017 10:14 - CONCLUSION: 1. There is occlusive superficial thrombosis of the right basilic vein. This is reported to be in the location of a prior IV site. 2. The remaining veins of the right upper extremity including the internal jugular vein are patent. Abhishek Arambula MD Brain MRI 07/14/17 1742 Signed Impressions: Service Date/Time: Friday, July 14, 2017 18:52 - CONCLUSION: Interval change in the appearance of the flair weighted images over the parietal gyri right greater than left which is of concern for possible subarachnoid hemorrhage. There is no interparenchymal hemorrhage or mass effect. A noncontrast head CT may be helpful for further evaluation. Dl Dominguez MD Head CT 07/14/17 0000 Signed Impressions: Service Date/Time: Friday, July 14, 2017 20:56 - CONCLUSION: 1. No acute hemorrhage, mass or acute infarction. 2. Small stable lacunar sn the right basal ganglia. Dl Dominguez MD Neck Magnetic Resonance Angiography 07/13/17 1326 Signed Impressions: Service Date/Time: Thursday, July 13, 2017 16:56 - CONCLUSION: 1. Mild plaque in the common carotid arteries and proximal internal carotid arteries with no significant stenosis. 2. Plaque and mild stenosis in the right vertebral artery without significant change. Dl Dominguez MD Head Magnetic Resonance Angiography 07/13/17 1326 Signed Impressions: Service Date/Time: Thursday, July 13, 2017 16:56 - CONCLUSION: 1. Unremarkable MR angiography of the brain. Richie Vargas MD Chest X-Ray 07/13/17 1158 Signed Impressions: Service Date/Time: Thursday, July 13, 2017 12:20 - CONCLUSION: No acute cardiopulmonary abnormality is identified. Abhishek Arambula MD Carotid Artery Ultrasound 07/13/17 0000 Signed Impressions: Service Date/Time: Thursday, July 13, 2017 14:57 - CONCLUSION: Mild bilateral plaquing with no evidence of a hemodynamically significant lesion. Dl Dominguez MD Procedures None Other Results Laboratory Tests Test 07/13/17 12:07 07/14/17 08:42 07/14/17 21:27 07/19/17 06:20 Prothrombin Time 11.6 SEC Prothromb Time International Ratio 1.0 RATIO Activated Partial Thromboplast Time 29.3 SEC Hemoglobin A1c 5.4 % Blood Urea Nitrogen 16 MG/DL 14 MG/DL 13 MG/DL Creatinine 1.03 MG/DL 0.78 MG/DL 0.89 MG/DL Random Glucose 98 MG/DL 112 MG/DL 98 MG/DL Total Protein 7.4 GM/DL Albumin 3.6 GM/DL Calcium Level 8.4 MG/DL 8.8 MG/DL 8.4 MG/DL Alkaline Phosphatase 48 U/L Aspartate Amino Transf (AST/SGOT) 27 U/L Alanine Aminotransferase (ALT/SGPT) 22 U/L Total Bilirubin 0.7 MG/DL Sodium Level 139 MEQ/L 138 MEQ/L 140 MEQ/L Potassium Level 4.1 MEQ/L 3.5 MEQ/L 3.5 MEQ/L Chloride Level 106 MEQ/L 105 MEQ/L 104 MEQ/L Carbon Dioxide Level 26.2 MEQ/L 23.5 MEQ/L 26.3 MEQ/L White Blood Count 8.2 TH/MM3 Red Blood Count 4.80 MIL/MM3 Hemoglobin 15.5 GM/DL Hematocrit 45.3 % Mean Corpuscular Volume 94.3 FL Mean Corpuscular Hemoglobin 32.2 PG Mean Corpuscular Hemoglobin Concent 34.1 % Red Cell Distribution Width 13.8 % Platelet Count 178 TH/MM3 Mean Platelet Volume 8.9 FL Neutrophils (%) (Auto) 73.1 % Lymphocytes (%) (Auto) 16.2 % Monocytes (%) (Auto) 8.8 % Eosinophils (%) (Auto) 1.6 % Basophils (%) (Auto) 0.3 % Neutrophils # (Auto) 6.0 TH/MM3 Lymphocytes # (Auto) 1.3 TH/MM3 Monocytes # (Auto) 0.7 TH/MM3 Eosinophils # (Auto) 0.1 TH/MM3 Basophils # (Auto) 0.0 TH/MM3 CBC Comment DIFF FINAL Differential Comment Magnesium Level 1.9 MG/DL Erythrocyte Sedimentation Rate 4 mm/hr Triglycerides Level 101 MG/DL Cholesterol Level 108 MG/DL LDL Cholesterol 38 MG/DL HDL Cholesterol 49.5 MG/DL Cholesterol/HDL Ratio 2.18 RATIO Thiamine Level 179 nmol/L Vitamin B12 Level 510 PG/ML Rapid Plasma Reagin NON-REACTIVE Anion Gap 10 MEQ/L Estimat Glomerular Filtration Rate 81 ML/MIN Objective Remarks GENERAL: comfortable appearing, nad SKIN: Warm and dry. HEAD: Normocephalic. EYES: No scleral icterus. No injection or drainage. NECK: Supple, trachea midline. No JVD or lymphadenopathy. CARDIOVASCULAR: irregular rhythm without murmurs, gallops, or rubs. RESPIRATORY: Breath sounds equal bilaterally. No accessory muscle use. GASTROINTESTINAL: Abdomen soft, non-tender, nondistended. MUSCULOSKELETAL: No cyanosis, or edema. NO calf tenderness. Medications and IVs Current Medications Medications (Trade) Dose Ordered Sig/Magan Route Start Time Stop Time Status Last Admin (NS Flush) 2 ml BID IV FLUSH 07/13/17 21:00 07/20/17 11:14 (NS Flush) 2 ml UNSCH PRN IV FLUSH 07/13/17 14:30 (Tylenol) 500 mg Q4HR PRN PO 07/13/17 18:30 07/14/17 09:15 (Eliquis) 5 mg BID PO 07/13/17 21:00 Future Hold 07/14/17 08:04 (Protonix) 20 mg DAILY PO 07/14/17 09:00 07/20/17 11:15 (Pravachol) 40 mg DAILY PO 07/14/17 09:00 07/20/17 11:15 (Catapres) 0.1 mg Q6H PRN PO 07/13/17 19:00 07/19/17 23:40 (Vitamin C) 500 mg DAILY PO 07/14/17 09:00 07/20/17 11:15 (Oscal) 1,000 mg BID PO 07/13/17 21:00 07/20/17 11:15 (Theragran) 1 tab DAILY PO 07/14/17 09:00 07/20/17 11:15 (Xarelto) 20 mg HS PO 07/14/17 22:15 07/19/17 21:45 (Ecotrin Ec) 81 mg DAILY PO 07/14/17 22:45 07/20/17 11:16 (Lyric-Colace) 1 tab BID PO 07/16/17 21:00 07/20/17 09:00 (Milk Of Magnesia Liq) 30 ml Q12H PRN PO 07/16/17 21:00 07/17/17 17:35 (Senokot) 17.2 mg Q12H PRN PO 07/16/17 21:00 07/18/17 09:09 (Dulcolax Supp) 10 mg DAILY PRN RECTAL 07/16/17 21:00 (Mag-Ox) 400 mg DAILY PO 07/19/17 10:00 07/20/17 11:15 Amiodarone HCl 450 mg/Dextrose 250 ml @ 33.33 mls/ hr TITRATE PRN IV 07/19/17 13:00 07/19/17 13:01 (Pill Splitter) 1 ea UNSCH PRN OTHER 07/20/17 10:15 (Cordarone) 400 mg Q12HR PO 07/20/17 11:15 UNV (Lopressor) 50 mg Q12HR PO 07/20/17 21:00 A/P Assessment and Plan 82-year-old male with a medical history significant for stroke, hypertension, A. fib presented to the hospital on 07/13 with chief complaint of left arm numbness and facial numbness that resolved upon admission. Admission the patient was noted to be in A. fib with RVR. Patient was previously on Eliquis, but because he had an event on this medication he was switched to Xarelto. On 07/14/2017 stroke was called in the evening at approximately 5 PM when the patient had acute onset of difficulty talking. Patient is stable neurologically. He is being followed by neurology and cardiology. Recurrent TIA: See imaging above. Events noted on 07/13 and 07/14. Currently being followed by Dr. Whitehead. EEG negative. RPR negative, B12 within normal limits. Continue aspirin and statin. Continue PT, OT, ST. Echocardiogram EF 60-65%. A-Fib: A.fib with RVR. was on Cardizem drip at this time seen by electronic security specialist Doctor Young started Amiodarone drip today recommended to continue Amiodarone 400 mg BID and Metoprolol 50 mg bid. EF 60-65% HTN: KASSANDRA inhibitor and amlodipine on hold, Controlled. HLD: cont statin complained of right foot pain he states he sprain the foot while in bed. has pain but was working with Physical Therapy recommended Walker and follow. mild pain on palpation superficial vein thrombosis of the basilic vein on right arm. GERD: Protonix is 20 mg daily DVT proph: Currently on Xarelto Discharge Planning okay to discharge home on [facility] for PT and Skilled nurse. Atul Schmidt MD Jul 20, 2017 11:38
[2017-07-20] MEDS ORDERED: AMIO200T PO (11:41)
[2017-07-20] MEDS ORDERED: XARE20TA PO (11:41)
[2017-07-20] MEDS ORDERED: ASPI1TAB56 PO (11:41)
[2017-07-20] MEDS ORDERED: METO-309 PO (11:41)
--- NOTE | 2017-07-20 11:44 | HHI.DS ---
Discharge Summary Admission Date Jul 14, 2017 at 14:10 Discharge Date: Jul 20, 2017 Admitting Diagnosis acute CVA (1) TIA (transient ischemic attack) ICD Code: G45.9 - Transient cerebral ischemic attack, unspecified Diagnosis: Principal Status: Acute (2) Atrial fibrillation with RVR ICD Code: I48.91 - Unspecified atrial fibrillation Diagnosis: Principal Status: Acute Procedures None Brief History - From Admission Patient is a very pleasant 82-year-old male with history of TIA in September 2015 , atrial fibrillation, hypertension, hyperlipidemia who woke up this morning with sudden onset of left-sided numbness involving the cheek the bowel in the left hand mainly involving the 3 first 3 fingers. Patient also noted a facial droop which was confirmed by his . Patient had similar experiences in the past with this and called 911. Patient states that within an hour all symptoms resolved. Patient is being followed closely by her primary care physician. On review of her medication his medications and his Cardizem CD 240 was discontinued about 2 weeks ago. His Lopressor was decreased from 200 200 mg daily and amlodipine was added. patient is also on Eliquis twice a day and is very compliant. Patient also states that he takes doxazosin 4 mg half tab at night for frequency which he said that really doesn't help much and states that he would want to get off it. Patient now admitted for further evaluation. CBC/BMP: 07/19/17 0620 Significant Findings Laboratory Tests Test 07/19/17 06:20 Calcium Level 8.4 MG/DL (8.5-10.1) Estimat Glomerular Filtration Rate 81 ML/MIN (>89) Imaging Last Impressions Upper Extremity Ultrasound 07/20/17 0000 Signed Impressions: Service Date/Time: Thursday, July 20, 2017 10:14 - CONCLUSION: 1. There is occlusive superficial thrombosis of the right basilic vein. This is reported to be in the location of a prior IV site. 2. The remaining veins of the right upper extremity including the internal jugular vein are patent. Abhishek Arambula MD Brain MRI 07/14/17 5510 Signed Impressions: Service Date/Time: Friday, July 14, 2017 18:52 - CONCLUSION: Interval change in the appearance of the flair weighted images over the parietal gyri right greater than left which is of concern for possible subarachnoid hemorrhage. There is no interparenchymal hemorrhage or mass effect. A noncontrast head CT may be helpful for further evaluation. Dl Dominguez MD Head CT 07/14/17 0000 Signed Impressions: Service Date/Time: Friday, July 14, 2017 20:56 - CONCLUSION: 1. No acute hemorrhage, mass or acute infarction. 2. Small stable lacunar sn the right basal ganglia. Dl Dominguez MD Neck Magnetic Resonance Angiography 07/13/17 1326 Signed Impressions: Service Date/Time: Thursday, July 13, 2017 16:56 - CONCLUSION: 1. Mild plaque in the common carotid arteries and proximal internal carotid arteries with no significant stenosis. 2. Plaque and mild stenosis in the right vertebral artery without significant change. Dl Dominguez MD Head Magnetic Resonance Angiography 07/13/17 1326 Signed Impressions: Service Date/Time: Thursday, July 13, 2017 16:56 - CONCLUSION: 1. Unremarkable MR angiography of the brain. Richie Vargas MD Chest X-Ray 07/13/17 1158 Signed Impressions: Service Date/Time: Thursday, July 13, 2017 12:20 - CONCLUSION: No acute cardiopulmonary abnormality is identified. Abhishek Arambula MD Carotid Artery Ultrasound 07/13/17 0000 Signed Impressions: Service Date/Time: Thursday, July 13, 2017 14:57 - CONCLUSION: Mild bilateral plaquing with no evidence of a hemodynamically significant lesion. Dl Dominguez MD PE at Discharge GENERAL: comfortable appearing, nad SKIN: Warm and dry. HEAD: Normocephalic. EYES: No scleral icterus. No injection or drainage. NECK: Supple, trachea midline. No JVD or lymphadenopathy. CARDIOVASCULAR: irregular rhythm without murmurs, gallops, or rubs. RESPIRATORY: Breath sounds equal bilaterally. No accessory muscle use. GASTROINTESTINAL: Abdomen soft, non-tender, nondistended. MUSCULOSKELETAL: No cyanosis, or edema. Mild pain on palpation of the dorsal area of his right foot. Hospital Course This is a pleasant 82 y/o Male with history of TIA September 2015, Atrial Fibrillation, Hypertension, Hyperlipidemia, who came to ER Left sided numbness involving the cheek the bowel in the left hand mainly involving the 3 first 3 fingers. Patient also noted a facial droop which was confirmed by his . he is on Eliquis twice a day and is very compliant. patient admitted with diagnosis of Atrial Fibrillation with RVR today worsening condition Doctor Young Started the patient on Amiodarone IV, discussed with him in am. patient with no complaint. discussed with nurse Miss Dickerson. 07/20: Discussed with doctor Young, patient in the room and nurse Miss Minaya, I tried to contact his and her Daughter Miss Abida Caballero left message at her home and on her another phone [phone] no answer , the patient is stable already recommended by public health clinical nurse specialist Doctor Young for discharge and follow in his office, as per Nurse Miss Minaya the Amiodarone drip is due in one more Hour and will go home on Metoprolol 50 mg BID and Amiodarone 400 mg BID will follow with doctor Young in one week, on his left arm there's an extravasation with Basilic vein thrombus as superficial the patient is already on Xarelto for Atrial Fibrillation, also was seen today by Physical Therapy recommended going Home with [facility] continue Physical Therapy will go with Skilled nurse. Assessment and Plan 82-year-old male with a medical history significant for stroke, hypertension, A. fib presented to the hospital on 07/13 with chief complaint of left arm numbness and facial numbness that resolved upon admission. Admission the patient was noted to be in A. fib with RVR. Patient was previously on Eliquis, but because he had an event on this medication he was switched to Xarelto. On 07/14/2017 stroke was called in the evening at approximately 5 PM when the patient had acute onset of difficulty talking. Patient is stable neurologically. He is being followed by neurology and cardiology. Recurrent TIA: See imaging above. Events noted on 07/13 and 07/14. Currently being followed by Dr. Whitehead. EEG negative. RPR negative, B12 within normal limits. Continue aspirin and statin. Continue PT, OT, ST. Echocardiogram EF 60-65%. A-Fib: A.fib with RVR. was on Cardizem drip at this time seen by public health clinical nurse specialist Doctor Young started Amiodarone drip today recommended to continue Amiodarone 400 mg BID and Metoprolol 50 mg bid. EF 60-65% HTN: KASSANDRA inhibitor and amlodipine on hold, Controlled. HLD: cont statin complained of right foot pain he states he sprain the foot while in bed. has pain but was working with Physical Therapy recommended Walker and follow. mild pain on palpation superficial vein thrombosis of the basilic vein on right arm. GERD: Protonix is 20 mg daily DVT proph: Currently on Xarelto Discharge Planning okay to discharge home on [facility] for PT and Skilled nurse. Pt Condition on Discharge: Good Discharge Disposition: Disch w/ Home Health Serv Discharge Time: > 30 minutes Discharge Instructions DIET: Follow Instructions for: Heart Healthy Diet Activities you can perform: Regular-No Restrictions Atul Schmidt MD Jul 20, 2017 11:44
--- NOTE | 2017-07-20 11:45 | HHI.FF ---
Face to Face Verification Diagnosis: (1) HTN (hypertension) (2) CAD (coronary artery disease) (3) TIA (transient ischemic attack) (4) Atrial fibrillation with RVR Physical Therapy Order: Evaluate and Treat, Improve ambulation, Strength and gait training Home Health Nursing Order: Medical education Signs/symptoms of disease process Medication education-adverse effect Nursing assessment with vital signs I have seen patient Nile Caballero on 07/20/17. My clinical findings support the need for the requested home health care services because: Ltd mobility - disease progression I certify that my clinical findings support that this patient is homebound because: Unsafe to leave home unassisted Atul Schmidt MD Jul 20, 2017 11:45
[2017-07-20] MEDS ORDERED: WALKER WHEELS/F1 MIS (11:46)
[2017-07-20] MEDS ORDERED: AMIODARONE 200 MG TAB PO SCH (12:15)
== END 2017-07-20 16:30 | disposition home or self-care (01) | DRG 69 ==
LOC: NEPE 11:46 → NEDA 12:05 → INTOOBSV 12:05 → N05B 17:37 → OBSVTOIN 07-14 14:10 → HCIN 07-14 16:57 → N03B 07-14 17:44 → HIMW 07-15 16:52 → HCIS 07-17 09:39
PROVIDERS: ADMIT Internal Medicine; ATTEND Internal Medicine
DX: G45.9 Transient cerebral ischemic attack, unspecified (principal); I82.619 Acute embolism and thrombosis of superficial veins of unspecified upper extremity; I48.91 Unspecified atrial fibrillation; Z86.73 Personal history of transient ischemic attack (TIA), and cerebral infarction without residual deficits; I10 Essential (primary) hypertension; E78.5 Hyperlipidemia, unspecified; K21.9 Gastro-esophageal reflux disease without esophagitis; R35.0 Frequency of micturition; Z96.653 Presence of artificial knee joint, bilateral; Z85.820 Personal history of malignant melanoma of skin; Z87.442 Personal history of urinary calculi; Z79.01 Long term (current) use of anticoagulants; Z79.899 Other long term (current) drug therapy; I25.10 Atherosclerotic heart disease of native coronary artery without angina pectoris
CPT/HCPCS: 70450; 70544; 70548; 70551; 71010; 80048; 80053; 80061; 82607; 82948; 83036; 83735; 84425; 85025; 85610; 85652; 85730; 86592; 93005; 93306; 93880; 93971; 95819; A9579; G0378; G8996-GN; G8997-GN; G8998-GN; J0282; J1160; J7030; J7060

== ENCOUNTER 2017-10-30 13:26 | Emergency (ER) | payer MEDICARE, OTHER ==
[~2017-10-30] VITALS: Ht 182.9 cm; Wt 90.5 kg
[~2017-10-30 13:26] MED LIST changes: +ACET-822 PO; +AMIO200T PO; -APIX5TAB PO; +ASPI1TAB56 PO; +CALC600T5 PO; -CARD240C6 PO; -LOVA40TA PO; +LUTE20CA PO; +METO-309 PO; -METO1TAB9 PO; +MULTTAB67 PO; +OMEG300C5 PO; +PRAV40TA PO; +VITA250T3 PO; +WALKER WHEELS/F1 MIS; +XARE20TA PO
[2017-10-30 13:31] VITALS: BP 139/65; PULSE 76; RESP 18; TEMP 98.2; O2SAT 96
[2017-10-30] MEDS ORDERED: AMLO10TA2 PO (13:38)
--- NOTE | 2017-10-30 14:16 | RADRPT ---
EXAM DATE/TIME: 10/30/2017 14:04 [facility] COMPARISON: No previous studies available for comparison. INDICATIONS : Patient complains of bruising and swelling of left elbow after bumping elbow while getting out of bed a few days ago. MEDICAL HISTORY : None. SURGICAL HISTORY : None. ENCOUNTER: Initial ACUITY: 4 - 6 days PAIN SCORE: 2/10 LOCATION: Left elbow FINDINGS: Two view examination of the left elbow demonstrates no soft tissue swelling, joint effusion, fracture or dislocation. Bony mineralization is normal. CONCLUSION: 1. No acute fracture or dislocation. Bobby Eastman MD on October 30, 2017 at 14:14 Board Certified Radiologist. This report was verified electronically.
--- NOTE | 2017-10-30 15:06 | PD ---
HPI Chief Complaint: Pain: Acute or Chronic Time Seen by Provider: 14:25 Travel History International Travel<30 days: No Contact w/Intl Traveler<30days: No Traveled to known affect area: No History of Present Illness HPI This is an 82-year-old male here with left elbow pain and swelling 1 week. He reports he believes he injured the elbow on his nightstand approximately one week ago. He reports the pain and swelling has reduced but he noticed bruising which prompted his visit today. He denies fever or chills. Symptom severity is mild. No aggravating or alleviating factors. PFSH Past Medical History Hx Anticoagulant Therapy: Yes Arthritis: Yes Asthma: No Atrial Fibrillation: Yes Autoimmune Disease: No Blood Disorders: No Anxiety: No Depression: No Heart Rhythm Problems: Yes (A-FIB) Cancer: Yes (Melenoma behind right ear) Cardiovascular Problems: Yes (A-FIB, HTN) High Cholesterol: No Chemotherapy: No Chest Pain: No Congestive Heart Failure: No COPD: No Cerebrovascular Accident: Yes (TIA 16 months ago) Diabetes: No Diminished Hearing: No Endocrine: No Gastrointestinal Disorders: Yes (ACID REFLUX, "SENSITIVE STOMACH") GERD: No Glaucoma: No Genitourinary: Yes Headaches: No Hepatitis: No Hiatal Hernia: No Hypertension: Yes Immune Disorder: No Implanted Vascular Access Dvce: Yes Kidney Stones: Yes Musculoskeletal: Yes Neurologic: Yes (Cervical Disc buldges) Psychiatric: No Reproductive: No Respiratory: No Migraines: Yes Myocardial Infarction: No Radiation Therapy: No Renal Failure: No Seizures: No Sickle Cell Disease: No Sleep Apnea: No Thyroid Disease: No Ulcer: No Influenza Vaccination: Yes ?: Not Past Surgical History Abdominal Surgery: Yes (Cholecystectomy, Kidney stone removal, Appendectomy) AICD: No Appendectomy: Yes Arteriovenous Shunt: No Cardiac Surgery: No Cholecystectomy: Yes Ear Surgery: No Endocrine Surgery: No Eye Surgery: No Genitourinary Surgery: No Gynecologic Surgery: No Insulin Pump: No Joint Replacement: Yes (Bilateral knee replacement) Neurologic Surgery: Yes (C3-C4 Discectomy) Oral Surgery: No Pacemaker: No Thoracic Surgery: No Other Surgery: Yes (APPENDECTOMY,RIGHT KNEE REPLACEMENT,KIDNEY STONE SURGERY, LEFT FINGER SURGER) Social History Alcohol Use: No Tobacco Use: No Substance Use: No Allergies-Medications (Allergen,Severity, Reaction): Coded Allergies: No Known Allergies (Verified Allergy, Unknown, 10/30/17) Reported Meds & Prescriptions Reported Meds & Active Scripts Active Xarelto (Rivaroxaban) 20 Mg Tab 20 Mg PO HS Reported Amlodipine (Amlodipine Besylate) 10 Mg Tab 10 Mg PO DAILY Pravachol (Pravastatin) 40 Mg Tab 40 Mg PO DAILY Pantoprazole (Pantoprazole Sodium) 20 Mg Tab 20 Mg PO DAILY Review of Systems Except as stated in HPI: all other systems reviewed are Neg General / Constitutional: No: Fever Physical Exam Narrative GENERAL: Alert and well-appearing 82-year-old male SKIN: Warm and dry. Healing ecchymosis to the left elbow HEAD: Normocephalic. EYES: No injection or drainage. NECK: Supple, MUSCULOSKELETAL: No cyanosis, or edema. Left upper extremity: Soft and nontender fluctuant bursa over the elbow. Faint healing ecchymosis over the elbow. No deformity. He can fully flex and extend the elbow. 2+ brachial and radial pulse. Normal sensation. Brisk cap Refill. Data Data Last Documented VS Vital Signs Date Time Temp Pulse Resp B/P (MAP) Pulse Ox O2 Delivery O2 Flow Rate FiO2 10/30/17 13:31 98.2 76 18 139/65 (89) 96 Orders Orders Elbow, Limited (Ap&Lat) (10/30/17 ) MDM Medical Decision Making Medical Screen Exam Complete: Yes Emergency Medical Condition: Yes Differential Diagnosis Elbow fracture, olecranon bursitis, contusion Narrative Course This is an 82-year-old male here with left elbow olecranon bursitis. No evidence of infection. The extremity is neurovascular intact. Diagnosis Primary Impression: Olecranon bursitis Qualified Codes: M70.22 - Olecranon bursitis, left elbow Referrals: Primary Care Physician Additional Instructions: Continue to ice the elbow 20 minutes at a time. Tylenol as needed for pain. Follow-up with her primary doctor. Disposition: 01 DISCHARGE HOME Condition: Stable Jocelyne Foley Oct 30, 2017 15:06
== END 2017-10-30 15:12 | disposition home or self-care (01) ==
LOC: PHEFT 13:26
DX: M70.22 Olecranon bursitis, left elbow (principal); I48.91 Unspecified atrial fibrillation; Z79.01 Long term (current) use of anticoagulants
CPT/HCPCS: 73070; 99283